=== PATIENT | male | born 1960 | race Caucasian/White ===

== ENCOUNTER 2016-11-18 09:12 | Outpatient (RCR) | payer MEDICAID ==
--- OUTSIDE RECORDS SUMMARY | 2016-11-04 08:30 | XMS REPORT | Continuity of Care Document ---
Author Author [facility] Organization [facility] Address Unknown Phone Unavailable Care Team Providers Care Drafter Geological Name Role Phone NATALIE MELVIN MD PCP Insurance Providers Payer Name Policy Number Subscriber Name Relationship [facility] [id number] Rigo Marcus 18 Self / Same As Patient Advance Directives Directive Response Recorded Date/Time Advance Directives Yes 09/17/16 5:41pm Health Care Power of Exhibit Display Representative No 09/17/16 5:41pm Organ Donor Yes 09/17/16 5:41pm Resuscitation Status Full Code 09/17/16 5:41pm Chief Complaint and Reason for Visit Chief Complaint PNEUMONIA ACUTE HEART FAILURE CHEST PAIN Reason for Visit Knee joint effusion Leukocytosis Orthopnea Problems Active Problems Medical Problem Onset Date Status Acute renal failure Unknown Acute Atrial fibrillation with RVR Unknown Acute Atrial fibrillation with rapid ventricular response Unknown Acute Bilateral pneumonia Unknown Acute CAD (coronary artery disease) Unknown Acute COPD (chronic obstructive pulmonary disease) Unknown Acute COPD exacerbation Unknown Acute Chest pain Unknown Acute Chronic atrial fibrillation Unknown Acute Dysphagia Unknown Acute Generalized weakness Unknown Acute Gouty arthropathy Unknown Acute HTN (hypertension) Unknown Acute Heart failure, acute systolic Unknown Acute Illicit drug use Unknown Acute Knee joint effusion Unknown Acute Leukocytosis Unknown Acute Orthopnea Unknown Acute Medications Current Home Medications Medication Dose Units Route Directions Days/Qty Instructions Start Date Dabigatran Etexilate Mesylate 150 Mg 150 Mg Oral Twice A Day Furosemide 40 Mg 40 Mg Oral Daily 04/29/16 Prednisone 20 Mg 20 Mg Oral Daily 07/21/16 Montelukast Sodium 10 Mg 10 Mg Oral Bedtime 07/21/16 Famotidine 20 Mg 20 Mg Oral Twice A Day 07/22/16 Potassium Chloride 20 Meq 20 Meq Oral Daily 07/22/16 Aspirin 81 Mg 81 Mg Oral Daily 07/22/16 Insulin Detemir 100 Unit/1 Ml 18 Units Subcutaneously Twice A Day Insulin Aspart 300 Units/3 Ml 6 Units Subcutaneously Before Meals Albuterol Sulfate 2.5 Mg/3 Ml 2.5 Mg Nebullizer Every 8HRS as needed for Shortness Of Breath 09/17/16 Hydrocodone/Acetaminophen 1 Each 1-2 Tab Oral Every 4HRS as needed for Pain 09/17/16 Docusate Sodium 100 Mg 100 Mg Oral Twice A Day 09/17/16 Ferrous Sulfate 325 Mg 325 Mg Oral Twice A Day 09/17/16 Metoprolol Tartrate 25 Mg 12.5 Mg Oral Twice A Day TAKES 1/2 (25MG) TABLET 09/17/16 Guaifenesin 600 Mg 1,200 Mg Oral Twice A Day TAKES 2 (600MG) TABLETS 09/17/16 Melatonin/Pyridoxine 1 Each 3 Mg Oral Bedtime as needed for Insomnia 09/17/16 Budesonide/Formoterol Fumarate 10.2 Gm 2 Puff Inhalation Every 12 Hours as needed for Shortness Of Breath 09/17/16 Tramadol Hcl 50 Mg 50-100 Mg Oral Every 8HRS as needed for Pain 01/01 Amiodarone Hcl 200 Mg 400 Mg Oral Daily TAKES 2 (200MG) TABLETS Pantoprazole Sodium 20 Mg 20 Mg Oral Daily 09/17/16 Tiotropium [place] 4 Gm 2 Puff Inhalation Daily 09/17/16 Past Home Medications Medication Directions Ordered Status [Prednisone] , 60 Mg Oral Daily 09/23/13 Discontinued Acetaminophen/Hydrocodone Bitart 1 Each Tablet, 1-2 Each Oral Every 6 Hours as needed for Pain 09/23/13 Discontinued Prednisone 10 Mg Tab, 10 Mg Oral As Directed 09/23/13 Discontinued Clonidine Hcl 0.2 Mg Tablet, 0.2 Mg Oral Twice A Day 12/25/15 Discontinued Hydrochlorothiazide 25 Mg Tablet, 25 Mg Oral Daily 12/25/15 Discontinued Furosemide 20 Mg Tablet, 20 Mg Oral Daily 12/25/15 Discontinued Metformin Hcl 500 Mg Tablet, 500 Mg Oral Twice A Day 12/25/15 Discontinued Amlodipine Besylate 10 Mg Tablet, 10 Mg Oral Daily 12/25/15 Discontinued Hydrocodone/Acetaminophen 1 Each Tablet, 1 Tab Oral Every 6 Hours as needed for Pain 12/25/15 Discontinued Metoprolol Succinate 25 Mg Tab.er.24h, 25 Mg Oral Daily 12/25/15 Discontinued Prednisone 20 Mg Tab, 20 Mg Oral Daily 12/25/15 Discontinued Rivaroxaban 20 Mg Tablet, 20 Mg Oral Daily@1700 12/26/15 Discontinued Metoprolol Succinate 50 Mg Tab.er.24h, 50 Mg Oral Daily 12/26/15 Discontinued Lisinopril 40 Mg Tablet, 40 Mg Oral Daily 12/26/15 Discontinued Furosemide 40 Mg Tablet, 40 Mg Oral Daily 12/26/15 Discontinued Potassium Chloride (K-Dur) 20 Meq Tablet.er, 20 Meq Oral Daily 12/26/15 Discontinued Rosuvastatin Calcium 5 Mg Tablet, 5 Mg Oral Daily 12/26/15 Discontinued Fenofibrate Nanocrystallized 145 Mg Tablet, 145 Mg Oral Daily 12/26/15 Discontinued Dabigatran Etexilate Mesylate 75 Mg Capsule, 75 Mg Oral 01/19/16 Discontinued Furosemide 40 Mg Tablet, 20 Mg Oral Daily 01/19/16 Discontinued Metoprolol Succinate 25 Mg Tab.er.24h, 25 Mg Oral Daily 01/19/16 Discontinued Amlodipine Besylate 10 Mg Tablet, 10 Mg Oral Daily 01/19/16 Discontinued Prednisone 20 Mg Tab, 20 Mg Oral Twice A Day 01/19/16 Discontinued Furosemide 20 Mg Tablet, 20 Mg Oral Daily 01/19/16 Discontinued Diltiazem Hcl 240 Mg Cap.er.24h, 240 Mg Oral Daily 01/20/16 Discontinued Furosemide 40 Mg Tablet, 40 Mg Oral Daily 01/20/16 Discontinued Potassium Chloride 20 Meq Tab.er.prt, 20 Meq Oral Daily@0700 01/20/16 Discontinued Famotidine Tablet, 20 Mg Oral Twice A Day 04/29/16 Discontinued Potassium Chloride 20 Meq Tablet.er, 20 Meq Oral Daily 04/29/16 Discontinued Metoprolol Succinate 50 Mg Tab.er.24h, 50 Mg Oral Daily 04/29/16 Discontinued Lisinopril 40 Mg Tablet, 40 Mg Oral Daily 04/29/16 Discontinued Diltiazem Hcl 240 Mg Capsule.er, 240 Mg Oral Daily 04/29/16 Discontinued Prednisone 20 Mg Tab, 60 Mg Oral Daily 04/29/16 Discontinued Aspirin 81 Mg Tablet.dr, 81 Mg Oral Daily 04/30/16 Discontinued Metolazone 5 Mg Tablet, 1 Tab Oral Daily 07/21/16 Discontinued Fluticasone/Vilanterol 1 Each Blst.w.dev, 1 Each Inhalation Daily 07/21/16 Discontinued Diltiazem Hcl 240 Mg Capsule.er, 240 Mg Oral Daily 07/22/16 Discontinued Fluticasone/Vilanterol 1 Each Blst.w.dev, 1 Puff Inhalation Daily 07/22/16 Discontinued Umeclidinium [place] 62.5 Mcg Blst.w.dev, 62.5 Mcg Inhalation Daily 07/22/16 Discontinued Albuterol Sulfate 8.5 Gm Hfa.aer.ad, 2 Puff Inhalation Every 4HRS as needed for Shortness Of Breath 07/22/16 Discontinued Metoprolol Succinate 50 Mg Tab.er.24h, 50 Mg Oral Twice A Day 07/23/16 Discontinued Insulin Aspart 100 Unit/1 Ml Susp, 10 Unit Subcutaneously Before Meals Discontinued Insulin Determir 1,000 Units/10 Ml Soln, 35 Unit Sub-Q Bedtime 07/23/16 Discontinued Social History Social History Problem Response Recorded Date/Time Alcohol Use Past History 01/18/2016 10:09pm Recreational Drug Use N hx of meth use - last used 12/201501/19/2016 7:34am Recent Foreign Travel No 09/17/2016 5:43pm Recent Infectious Disease Exposure No 09/17/2016 5:43pm Hospitalization with Isolation Denies 09/18/2016 12:29pm Sexually Transmitted Disease No 09/17/2016 12:56pm HIV/AIDS No 09/17/2016 12:56pm Smoking Status Current Everyday Smoker 09/17/2016 12:57pm Do you dip or chew tobacco? Y "once in a while" 01/18/2016 10:09pm Type Used Cigarettes 09/18/2016 12:29pm Recent Hopitalizations No 09/17/2016 12:56pm Sexually Transmitted Disease No 09/17/2016 12:56pm Hospitalization with Isolation Denies 09/18/2016 12:29pm Query Response Start Date Stop Date Smoking Status Current Everyday Smoker Hospital Discharge Instructions No hospital discharge instructions. Plan of Care Discharge Date 09/18/16 11:23am Disposition 02 XFER SHT-TRM HOSP Prescriptions See Medication Section Functional Status Query Response Date Recorded Patient Orientation Person Place Time Situation September 18, 2016 12:29pm Comprehension Ability Understands Concepts September 18, 2016 8:00am Allergies, Adverse Reactions, Alerts No known allergies. Immunizations Name Given Type FLU TRIvalent 5 years - Adult 09/17/16 Administered Vital Signs Acute Vital Signs Vital Response Date/Time Temperature (Fahrenheit) 96.2 degrees F (97.6 - 99.5) 09/18/2016 8:30am Temperature (Calculated Celsius) 35.41904 degrees C (36.4 - 37.5) 09/18/2016 8:30am Temperature Source Tympanic 09/18/2016 8:30am Pulse Rate (adult) 139 bpm (60 - 90) 09/18/2016 9:45am Respiratory Rate 24 bpm (12 - 24) 09/18/2016 9:45am O2 Sat by Pulse Oximetry 88 % (88 - 100) 09/18/2016 9:45am Blood Pressure 127/88 mm Hg 09/18/2016 10:00am Blood Pressure Mean 101 mm Hg 09/18/2016 10:00am Pain Numeric Pain Scale 4 09/18/2016 8:00am Height (Feet) 5 feet 09/17/2016 5:49pm Height (Inches) 10.00 inches 09/17/2016 5:49pm Height (Calculated Centimeters) 177.057379 cm 09/17/2016 5:49pm Weight (Pounds) 250 pounds 09/18/2016 6:00am Weight (Ounces) 0.0 oz 09/17/2016 5:49pm Weight (Calculated Grams) 218532.094 gm 09/18/2016 6:00am Weight (Calculated Kilograms) 113.631798 kilograms 09/18/2016 6:00am Calculated BMI 34.7 09/17/2016 5:49pm Capillary Refill Capillary Refill Less Than 3 Seconds 09/17/2016 9:03am Results Laboratory Results Test Name Result Units Flags Reference Collection Date/Time Result Date/ Time Comments White Blood Count 6.8 10^3/uL 4.3-11.0 09/18/2016 5:37am 09/18/2016 5: 45am Red Blood Count 3.14 10^6/uL L 4.35-5.85 09/18/2016 5:37am 09/18/2016 5: 45am Hemoglobin 9.4 G/DL L 13.3-17.7 09/18/2016 5:37am 09/18/2016 5:45am Hematocrit 30 % L 40-54 09/18/2016 5:37am 09/18/2016 5:45am Mean Corpuscular Volume 95 FL 80-99 09/18/2016 5:37am 09/18/2016 5: 45am Mean Corpuscular Hemoglobin 30 PG 25-34 09/18/2016 5:37am 09/18/2016 5: 45am Mean Corpuscular Hemoglobin Concent 32 G/DL 32-36 09/18/2016 5:37am 01/2016 5:45am Red Cell Distribution Width 16.9 % H 10.0-14.5 09/18/2016 5:37am 2015 5:45am Platelet Count 278 10^3/uL 130-400 09/18/2016 5:37am 09/18/2016 5:45am Mean Platelet Volume 8.6 FL 7.4-10.4 09/18/2016 5:37am 09/18/2016 5: 45am Neutrophils (%) (Auto) 79 % H 42-75 09/18/2016 5:37am 09/18/2016 5:45am Lymphocytes (%) (Auto) 11 % L 12-44 09/18/2016 5:37am 09/18/2016 5:45am Monocytes (%) (Auto) 9 % 0-12 09/18/2016 5:37am 09/18/2016 5:45am Eosinophils (%) (Auto) 2 % 0-10 09/18/2016 5:37am 09/18/2016 5:45am Basophils (%) (Auto) 0 % 0-10 09/18/2016 5:37am 09/18/2016 5:45am Neutrophils # (Auto) 5.4 X 10^3 1.8-7.8 09/18/2016 5:37am 09/18/2016 5: 45am Lymphocytes # (Auto) 0.8 X 10^3 L 1.0-4.0 09/18/2016 5:37am 09/18/2016 5: 45am Monocytes # (Auto) 0.6 X 10^3 0.0-1.0 09/18/2016 5:37am 09/18/2016 5: 45am Eosinophils # (Auto) 0.1 10^3/uL 0.0-0.3 09/18/2016 5:37am 09/18/2016 5 :45am Basophils # (Auto) 0.0 10^3/uL 0.0-0.1 09/18/2016 5:37am 09/18/2016 5: 45am Prothrombin Time 18.9 SEC H 12.2-14.7 09/17/2016 9:27am 09/17/2016 9: 55am INR Comment 1.6 H 0.8-1.4 09/17/2016 9:27am 09/17/2016 9:55am INTERPRETIVE DATA SUGGESTED THERAPEUTIC RANGE FOR INR'S: VENOUS THROMBOSIS, PULMONARY EMBOLISM, OR PREVENTION OF SYSTEMIC EMBOLISM (EG. IN ATRIAL FIBRILLATION): 2.0 - 3.0 MECHANICAL PROSTHETIC HEART VALVES: 2.5 - 3.5* *NOTE: INR'S UP TO 4.5 MAY BE NECESSARY IN SELECTED GROUPS OF HIGH RISK PATIENTS. [employer] [place] [employer] OF CHEST PHYSICIANS CONSENSUS CONFERENCE ON ANTITHROMBOTIC THERAPY (2000). Activated Partial Thromboplast Time 62 SEC H 24-35 09/17/2016 9:27am 12/2015 9:55am Sodium Level 134 MMOL/L L 135-145 09/18/2016 5:37am 09/18/2016 6:05am Potassium Level 3.6 MMOL/L 3.6-5.0 09/18/2016 5:37am 09/18/2016 6:05am Chloride Level 101 MMOL/L 98-107 09/18/2016 5:37am 09/18/2016 6:05am Carbon Dioxide Level 21 MMOL/L 21-32 09/18/2016 5:37am 09/18/2016 6: 05am Anion Gap 12 MMOL/L 5-14 09/18/2016 5:37am 09/18/2016 6:05am Blood Urea Nitrogen 26 MG/DL H 7-18 09/18/2016 5:37am 09/18/2016 6:05am Creatinine 1.34 MG/DL H 0.60-1.30 09/18/2016 5:37am 09/18/2016 6:05am BUN/Creatinine Ratio 19 09/18/2016 5:37am 09/18/2016 6:05am Estimat Glomerular Filtration Rate 55 09/18/2016 5:37am 09/18/2016 6:05am GFR INTERPRETIVE DATA UNITS FOR ESTIMATED GFR (eGFR): mL/min/1.73 M2 REFERENCE RANGE FOR ESTIMATED GFR (eGFR) eGFR NORMAL eGFR >60 MODERATELY DECREASED eGFR 30-59 SEVERLY DECREASED eGFR 15-29 KIDNEY FAILURE <15 (OR DIALYSIS) Glucose Level 99 MG/DL 70-105 09/18/2016 5:37am 09/18/2016 6:05am Glucometer 195 MG/DL H 70-110 09/18/2016 10:18am 09/18/2016 12:12pm Calcium Level 8.1 MG/DL L 8.5-10.1 09/18/2016 5:37am 09/18/2016 6:05am Magnesium Level 1.9 MG/DL 1.8-2.4 09/18/2016 5:37am 09/18/2016 6:05am Total Bilirubin 0.7 MG/DL 0.1-1.0 09/18/2016 5:37am 09/18/2016 6:05am Alkaline Phosphatase 78 U/L 40-136 09/18/2016 5:37am 09/18/2016 6:05am Aspartate Amino Transf (AST/SGOT) 15 U/L 5-34 09/18/2016 5:37am 2015 6:05am Alanine Aminotransferase (ALT/SGPT) 27 U/L 0-55 09/18/2016 5:37am 09/18 6:05am Troponin I < 0.30 NG/ML <0.30 09/17/2016 3:53pm 09/17/2016 4:28pm Troponin I < 0.30 NG/ML <0.30 09/17/2016 8:12pm 09/17/2016 9:02pm Myoglobin 57.8 NG/ML 10.0-92.0 09/18/2016 5:37am 09/18/2016 6:22am B-Type Natriuretic Peptide 430.1 PG/ML H <100.0 09/17/2016 9:27am 2015 10:07am Total Protein 4.7 G/DL L 6.4-8.2 09/18/2016 5:37am 09/18/2016 6:05am Albumin 2.7 G/DL L 3.2-4.5 09/18/2016 5:37am 09/18/2016 6:05am Triglycerides Level 125 MG/DL <150 09/18/2016 5:37am 09/18/2016 6:05am Cholesterol Level 60 MG/DL < 200 09/18/2016 5:37am 09/18/2016 6:05am HDL Cholesterol 16 MG/DL L 40-60 09/18/2016 5:37am 09/18/2016 6:05am LDL Cholesterol Direct 23 MG/DL 1-129 09/18/2016 5:37am 09/18/2016 6: 05am VLDL Cholesterol 25 MG/DL 5-40 09/18/2016 5:37am 09/18/2016 6:05am Lactic Acid Level 2.5 MMOL/L CH 0.5-2.0 09/18/2016 9:15am 09/18/2016 9: 49am RESULTS CALLED TO MAGALY AT 0948. RESULTS READ BACK: YES. Thyroid Stimulating Hormone (TSH) 5.04 UIU/ML H 0.35-4.94 09/18/2016 5: 37am 09/18/2016 6:22am Arterial Blood pH 7.43 7.37-7.43 09/17/2016 3:46pm 09/17/2016 3:57pm Arterial Blood Partial Pressure CO2 36 MMHG 35-45 09/17/2016 3:46pm 12/2015 3:57pm Arterial Blood Partial Pressure O2 63 MMHG L 79-93 09/17/2016 3:46pm 12/2015 3:57pm Arterial Blood HCO3 23 MMOL/L 23-27 09/17/2016 3:46pm 09/17/2016 3: 57pm Arterial Blood Total CO2 24.3 MMOL/L 21.0-31.0 09/17/2016 3:46pm 2015 3:57pm Arterial Blood Base Excess -0.7 MMOL/L -2.5-2.5 09/17/2016 3:46pm 09/17 3:57pm Arterial Blood Oxygen Saturation 93 % L 94-100 09/17/2016 3:46pm 2015 3:57pm Blood Gas Puncture Site LT RAD 09/17/2016 3:46pm 09/17/2016 3:57pm Gil Test YES-POS 09/17/2016 3:46pm 09/17/2016 3:57pm Blood Gas Inspired Oxygen 7L 09/17/2016 3:46pm 09/17/2016 3:57pm Blood Gas Ventilator Setting NO 09/17/2016 3:46pm 09/17/2016 3: 57pm Blood Gas Patient Temperature 99.2 09/17/2016 3:46pm 09/17/2016 3: 57pm Procedures Procedure Status Date Provider(s) Tracing only of electrocardiogram Completed 09/17/16 IAN OVIEDO MD Tracing only of electrocardiogram Completed 09/17/16 JULIUS ALCARAZ MD FACP [facility] Color Doppler echocardiography Active 09/18/16 MARISA POPE Encounters Encounter Location Arrival/Admit Date Discharge/Depart Date Attending Provider Discharged Inpatient [facility] 09/17/16 11:41am 11:23am ERNESTINE MOORE MD Recent Diagnosis Knee joint effusion Leukocytosis Orthopnea
[~2016-11-18 09:12] MED LIST: ACHD5005 PO; ALBU2.5V4 NEB; AMIO200T2 PO; AMLO10TA2 PO; ASPI-586 PO; ASPI-983 PO; BUDE10.2 INH; CLON0.2T PO; DABI150C5 PO; DABI75CA3 PO; DILT240C56 PO; DILT240C87 PO; DILT240C90 PO; DOCU-143 PO; FAMO20TA3 PO; FAMO20TA5 PO; FENO145T2 PO; FERR-74 PO; FLUT1AER IH; FURO20TA4 PO; FURO40TA4 PO; GUAI600T43 PO; HYDR-3816 PO; HYDR-3820 PO; HYDR25TA4 PO; INSU100I14 SC; INSU100I29 SC; INSU100V16 SC; INSU100V5 SQ; LISI40TA PO; MELA1TAB10 PO; METF500T4 PO; METO-272 PO; METO-333 PO; METO-351 PO; METO5TAB6 PO; MONT10TA24 PO; PANT20TA3 PO; POTA-51 PO; POTA-53 PO; POTA20TA15 PO; POTA20TA8 PO; PRD10T PO; PRD20T PO; PREDNISONE PO; RIVA20TA PO; ROSU5TAB PO; RT-ALBUINH IH; TIOT4MIS2 INH; TRAM50TA2 PO; UMEC62.5 IH
== END 2016-11-18 16:00 | disposition home or self-care (01) ==
LOC: WOUNDCARE 09:12
PROVIDERS: ATTEND Surgery
DX: L97.222 Non-pressure chronic ulcer of left calf with fat layer exposed (principal); I70.242 Atherosclerosis of native arteries of left leg with ulceration of calf; E11.622 Type 2 diabetes mellitus with other skin ulcer; I89.0 Lymphedema, not elsewhere classified; L03.116 Cellulitis of left lower limb
CPT/HCPCS: 99212; 99213

== ENCOUNTER 2016-12-24 15:48 | Inpatient (IN) | payer MEDICAID ==
[~2016-12-24] VITALS: Ht 177.8 cm; Wt 110.7 kg
[2016-12-24 16:56] VITALS: BP 172/102
[2016-12-24] MEDS ORDERED: FUROSEMIDE 40 MG/4 ML INJ (LASIX) IVP SCH (17:00)
--- OUTSIDE RECORDS SUMMARY | 2016-12-24 17:00 | XMS REPORT | Continuity of Care Document ---
Author Author [facility] Organization [facility] Address Unknown Phone Unavailable Care Team Providers Care College Physics Instructor Name Role Phone NATALIE MELVIN MD PCP Insurance Providers Payer Name Policy Number Subscriber Name Relationship [facility] [id number] Rigo Marcus 18 Self / Same As Patient Advance Directives Directive Response Recorded Date/Time Advance Directives Yes 09/17/16 5:41pm Health Care Power of Motion Picture Director No 09/17/16 5:41pm Organ Donor Yes 09/17/16 [...] Mg 20 Mg Oral Daily 09/17/16 Tiotropium [place] 4 Gm 2 Puff Inhalation Daily 09/17/16 [...] 1 Puff Inhalation Daily 07/22/16 Discontinued Umeclidinium [place] 62.5 Mcg Blst.w.dev, 62.5 Mcg Inhalation Daily [...] - 99.5) 09/18/2016 8:30am Temperature (Calculated Celsius) 35.21799 degrees C (36.4 - 37.5) 09/18/2016 8:30am [...] 10.00 inches 09/17/2016 5:49pm Height (Calculated Centimeters) 177.969627 cm 09/17/2016 5:49pm Weight (Pounds) 250 pounds 09/18/2016 6:00am Weight (Ounces) 0.0 oz 09/17/2016 5:49pm Weight (Calculated Grams) 584849.094 gm 09/18/2016 6:00am Weight (Calculated Kilograms) 113.054984 kilograms 09/18/2016 6:00am Calculated BMI 34.7 09/17/2016 [...] SELECTED GROUPS OF HIGH RISK PATIENTS. [employer] [place] [employer] CONSENSUS CONFERENCE ON [...] electrocardiogram Completed 09/17/16 JULIUS ALCARAZ MD FACP [facility] Color Doppler echocardiography Active 09/18/16 MARISA POPE Encounters Encounter Location Arrival/Admit Date Discharge/Depart Date Attending Provider Discharged Inpatient [facility] 09/17/16 11:41am 11:23am ERNESTINE MOORE MD Recent Diagnosis Knee joint effusion Leukocytosis Orthopnea
[2016-12-24 17:14] LABS: BASOPHILS # (AUTO) 0.1 10^3/uL (0.0-0.1); BASOPHILS % (AUTO) 0 % (0-10); EOSINOPHILS % (AUTO) 0 % (0-10); LYMPHOCYTES # (AUTO) 0.4 X 10^3 (1.0-4.0); LYMPHOCYTES % (AUTO) 4 % (12-44); MEAN CORPUSCULAR HEMOGLOBIN 28 PG (25-34); MEAN CORPUSCULAR HGB CONC 32 G/DL (32-36); MEAN CORPUSCULAR VOLUME 88 FL (80-99); MEAN PLATELET VOLUME 9.3 FL (7.4-10.4); MONOCYTES # (AUTO) 0.8 X 10^3 (0.0-1.0); MONOCYTES % (AUTO) 7 % (0-12); NEUTROPHILS # (AUTO) 10.7 X 10^3 (1.8-7.8); NEUTROPHILS % (AUTO) 89 % (42-75); PLATELET COUNT 210 10^3/uL (130-400); RED BLOOD COUNT 4.56 10^6/uL (4.35-5.85); RED CELL DISTRIBUTION WIDTH 16.5 % (10.0-14.5)
[2016-12-24 17:36] LABS: ALANINE AMINOTRANSFERASE 32 U/L (0-55); ALBUMIN 3.9 G/DL (3.2-4.5); ANION GAP 14 MMOL/L (5-14); ASPARTATE AMINO TRANSFERASE 19 U/L (5-34); BILIRUBIN,TOTAL 0.5 MG/DL (0.1-1.0); BLOOD UREA NITROGEN 33 MG/DL (7-18); BUN/CREATININE RATIO 25; CARBON DIOXIDE 28 MMOL/L (21-32); CHLORIDE 98 MMOL/L (98-107); CREATININE SERUM 1.34 MG/DL (0.60-1.30); GFR ESTIMATED 55; GLUCOSE 299 MG/DL (70-105); POTASSIUM 4.7 MMOL/L (3.6-5.0); SODIUM 140 MMOL/L (135-145)
--- NOTE | 2016-12-24 17:43 | Consultation-Cardiology ---
HPI-Cardiology Cardiology Consultation: Date of Consultation 12/24/16 Date of Admission 12/24/16 Attending Physician Annalise Pérez DO Admitting Physician Macho Watson MD Consulting Physician JULIUS ALCARAZ MD, FACP, FACC, [facility], [facility] HPI: Chief Complaint: Reason for consultation: Shortness of breath 56 yo man with increasing shortness of breath and a productive cough and gen malaise for 5-6 days. Has chronic leg swelling, unchanged. No specific chest pain. Denies fever or chills Review of Systems-Cardiology Review of Systems Constitutional: malaise tiredness Eyes: No vision change Ears/Nose/Throat: No ear discharge, No nasal drainage, No recent hearing loss Respiratory: As described under HPI Cardiovascular: As described under HPI Gastrointestinal: No diarrhea, No nausea, No vomiting Genitourinary: No dysuria, No hematuria Musculoskeletal: back pain (chronic) Skin: No ulcerations Psychiatric/Neurological: No focal weakness, No seizure, No syncope Hematologic: No bleeding abnormalities [id number]-Wwhesr Hx Patient Social History Type Used: Cigarettes Recent Foreign Travel: No Immunizations Up To Date Tetanus Booster (TDap): Unknown Past Medical History PMH As described under Assessment. Family Medical History Family Medical History: He reports no family h/o CAD. He reports his father had lung cancer. Family History: Alzheimer's disease 19 MOTHER Diabetes mellitus 19 MOTHER FH: lung cancer 19 FATHER Hypertension 19 FATHER 19 MOTHER Allergies and Home Medications Allergies Coded Allergies: No Known Drug Allergies (Unverified , 09/23/13) Home Medications Albuterol Sulfate 2.5 Mg/3 Ml Vial.neb 2.5 MG NEB Q8H PRN PRN SHORTNESS OF BREATH (Reported) Amiodarone HCl 200 Mg Tablet 400 MG PO DAILY (Reported) TAKES 2 (200MG) TABLETS Aspirin 81 Mg Tablet.dr 81 MG PO DAILY (Reported) Budesonide/Formoterol Fumarate 10.2 Gm Hfa.aer.ad 2 PUFF INH Q12H PRN PRN SHORTNESS OF BREATH (Reported) Dabigatran Etexilate Mesylate 150 Mg Capsule 150 MG PO BID (Reported) Docusate Sodium 100 Mg Capsule 100 MG PO BID (Reported) Famotidine 20 Mg Tablet 20 MG PO BID (Reported) Ferrous Sulfate 325 Mg Tablet 325 MG PO BID (Reported) Furosemide 40 Mg Tablet 40 MG PO DAILY (Reported) Guaifenesin 600 Mg Tab.er.12h 1,200 MG PO BID (Reported) TAKES 2 (600MG) TABLETS Hydrocodone/Acetaminophen 1 Each Tablet 1-2 TAB PO Q4H PRN PRN PAIN (Reported) Insulin Aspart 300 Units/3 Ml Solution 6 UNITS SC AC (Reported) Insulin Detemir 100 Unit/1 Ml Insuln.pen 18 UNITS SC BID (Reported) Melatonin/Pyridoxine 1 Each Tablet 3 MG PO HS PRN PRN INSOMNIA (Reported) Metoprolol Tartrate 25 Mg Tablet 12.5 MG PO BID (Reported) TAKES 1/2 (25MG) TABLET Montelukast Sodium 10 Mg Tablet 10 MG PO HS (Reported) Pantoprazole Sodium 20 Mg Tablet.dr 20 MG PO DAILY (Reported) Potassium Chloride 20 Meq Tab.er.prt 20 MEQ PO DAILY (Reported) Prednisone 20 Mg Tab 20 MG PO DAILY (Reported) Tiotropium [place] 4 Gm Mist.inhal 2 PUFF INH DAILY (Reported) Tramadol HCl 50 Mg Tablet 50-100 MG PO Q8H PRN PRN PAIN (Reported) Physical Exam-Cardiology Physical Exam Vital Signs/I&O Capillary Refill : Constitutional: AAO x 3 well-developed well-nourished HEENT: PERRL EOMINo xanthelasmas are seen Neck: No carotid bruit, No carotid pulses are 2 + bilaterally, No with good upstrokes Respiratory: No accessory muscle use, other (fair air entry; increased exp phase; exp rhonchi and wheezes) Cardiovascular: regular rate-rhythm S1 and S2 systolic murmur (faint TINY at cardiac base) Gastrointestinal: No tender, softNo guarding, No rebound, audible bowel sounds Extremities: No clubbing, No cyanosis, significant edema Neurologic/Psychiatric: oriented x 3 grossly intact power is 5/5 both on sides Skin: No rash on exposed areas, No ulcerations on exposed areas Data Review Labs Laboratory Tests 12/24/16 17:07: Basophils # (Auto) 0.1, Basophils (%) (Auto) 0, Eosinophils # (Auto) 0.0, Eosinophils (%) (Auto) 0, Hematocrit 40, Hemoglobin 12.7L, Lymphocytes # (Auto) 0.4L, Lymphocytes (%) (Auto) 4L, Mean Corpuscular Hemoglobin 28, Mean Corpuscular Hemoglobin Concent 32, Mean Corpuscular Volume 88, Mean Platelet Volume 9.3, Monocytes # (Auto) 0.8, Monocytes (%) (Auto) 7, Neutrophils # (Auto ) 10.7H, Neutrophils (%) (Auto) 89H, Platelet Count 210, Red Blood Count 4.56, Red Cell Distribution Width 16.5H, White Blood Count 12.0H Laboratory Tests 12/24/16 17:07 A/P-Cardiology Assessment/Admission Diagnosis Acute exac of COPD due to lower resp tract infection CABG 3 vessel, GUZMAN to LAD, reverse saphenous vein graft to RPDA, reverse saphenous vein graft to OM1. Kaylen-atrial Farley MAZE by Dr. Raman on 08-26-16 CAD and cardiomyopathy. MPI of 01/22/16 showed ischemic cm; apical infarction with only minimal periinfarct ischemia; LVEF 31%. Subsequent cardiac cath of April 29, 2016 showed modately severe MVD, including the left main; LVEF 50%; elevated LVEDP; no significant MR. Chronic systolic and diastolic CHF Intermittent noncompliance with meds Paroxysmal A-fib/flutter Pradaxa for stroke prophylaxis HTN Echocardiogram from July [facility] at [facility] by Dr. Farley showed CM with an LVEF of 30% and diastolic dysfunction. Echocardiogram of 10-23-16 technically difficult study. LVEF 55-60%. Mild MR and TR. No evidence of significant valvular stenosis. PASP estimated to be approx 50mmHg. Mild diastolic dysfunction of LV DM Myasthenia gravis - chronic steroid therapy H/o chronic left eye droop/closure following cataract surgery in July 2015 COPD Tobaccoism - / PPD - cessation advised Methamphetamine abuse - cessation advised Atherosclerotic plaque within the bilateral internal carotid arteries contributing to less than 50% stenosis per carotid u/s of 12-25-15 Susptected KILLIAN Chornic mild transaminase elevation, present even before statin therapy Discussion and Recomendations * Continue diuretics * Repeat echo * Management of COPD and resp tract infection and other med problems is with Dr Pérez * I spoke with him and answered JULIUS Trevizo MD FACP [facility] Dec 24, 2016 17:43
[2016-12-24 17:45] LABS: BAND NEUTROPHILS 2 %; BASOPHILS % (MANUAL) 0 %; EOSINOPHILS % (MANUAL) 0 %; LYMPHOCYTES % (MANUAL) 10 %; NEUTROPHILS % (MANUAL) 87 %
[2016-12-24 17:54] VITALS: BP 153/100
[2016-12-24 17:56] LABS: THYROID STIMULATING HORMONE 1.65 UIU/ML (0.35-4.94); TROPONIN I < 0.30 NG/ML (<0.30)
[2016-12-24 18:00] VITALS: BP 148/91
--- NOTE | 2016-12-24 18:12 | Diagnostic Imaging Report ---
INDICATION: Shortness of air, decreased O2 sats. COMPARISON STUDY: Chest from September 18. FINDINGS: Patient has been extubated. Coronary artery bypass graft changes and cardiomegaly are stable. Vascularity is normal. Infiltrates in the right upper lobe have cleared. There are still infiltrates in the right lower lobe. IMPRESSION: Stable cardiomegaly with persistent infiltrates in the right lower lobe. Infiltrates in the right upper lobe have cleared. Dictated by: Dictated on workstation # [id number]
[2016-12-24] MEDS: RT-BUDESONIDE NEBS 0.5 MG/2ML (PULMICORT) AMP INH SCH (19:05)
[2016-12-24] MEDS: RT-ALBUTEROL/IPRATROPIUM 3 ML (DUONEB) VIAL INH SCH ×2 (19:05→22:13)
[2016-12-24] MEDS ORDERED: FUROSEMIDE 40 MG/4 ML INJ (LASIX) IVP NR (19:06)
[2016-12-24] MEDS ORDERED: ASPIRIN 81 MG CHEW (CHILDREN'S ASA) PO NR (19:06)
[2016-12-24] MEDS ORDERED: meTOprolol SUCCINATE 100 MG (TOPROL XL) TAB PO NR (19:07)
[2016-12-24] MEDS ORDERED: KCL 20 MEQ TAB (K-DUR) PO NR (19:07)
[2016-12-24 20:00] VITALS: BP 170/101
[2016-12-24] MEDS: methylPREDNISolone 40 MG/ML (Solu-MEDROL) VIAL IV SCH (20:08)
[2016-12-24] MEDS: oxyCODONE/APAP 5/325MG (PERCOCET 5) TABLET PO PRN (20:41)
[2016-12-24 21:00] VITALS: BP 154/94
[2016-12-24 21:47] LABS: BILIRUBIN,URINE NEGATIVE (NEGATIVE); KETONES,URINE NEGATIVE (NEGATIVE); LEUKOCYTE ESTERASE ,URINE NEGATIVE (NEGATIVE); NITRITE,URINE NEGATIVE (NEGATIVE); PH,URINE 6 (5-9); PROTEIN,URINE NEGATIVE (NEGATIVE); UROBILINOGEN,URINE NORMAL (NORMAL)
[2016-12-24 22:03] LABS: WBC,URINE RARE /HPF
[2016-12-24] MEDS: inSUlin (REGULAR) HUMAN 1 UNIT/0.01 ML (CHARGE PER UNIT) SC SCH (22:42)
[2016-12-25] VITALS (8 sets, daily range): BP systolic 149–170; BP diastolic 88–108
[2016-12-25] MEDS: methylPREDNISolone 40 MG/ML (Solu-MEDROL) VIAL IV SCH ×5 (00:16→23:35)
[2016-12-25] MEDS: RT-ALBUTEROL/IPRATROPIUM 3 ML (DUONEB) VIAL INH SCH ×6 (02:21→22:37)
[2016-12-25 04:54] LABS: BASOPHILS % (AUTO) 0 % (0-10); EOSINOPHILS % (AUTO) 0 % (0-10); LYMPHOCYTES # (AUTO) 0.2 X 10^3 (1.0-4.0); LYMPHOCYTES % (AUTO) 2 % (12-44); MEAN CORPUSCULAR HEMOGLOBIN 28 PG (25-34); MEAN CORPUSCULAR HGB CONC 32 G/DL (32-36); MEAN CORPUSCULAR VOLUME 88 FL (80-99); MEAN PLATELET VOLUME 9.9 FL (7.4-10.4); MONOCYTES # (AUTO) 0.3 X 10^3 (0.0-1.0); MONOCYTES % (AUTO) 4 % (0-12); NEUTROPHILS # (AUTO) 8.2 X 10^3 (1.8-7.8); NEUTROPHILS % (AUTO) 94 % (42-75); PLATELET COUNT 208 10^3/uL (130-400); RED BLOOD COUNT 4.47 10^6/uL (4.35-5.85); RED CELL DISTRIBUTION WIDTH 16.4 % (10.0-14.5); WHITE BLOOD COUNT 8.8 10^3/uL (4.3-11.0)
[2016-12-25] MEDS: NYSTATIN ORAL SUSP 5 ML UDC PO SCH ×4 (05:07→21:00)
[2016-12-25 05:30] LABS: ALBUMIN 3.9 G/DL (3.2-4.5); BILIRUBIN,TOTAL 0.4 MG/DL (0.1-1.0); CREATININE SERUM 1.27 MG/DL (0.60-1.30); TOTAL PROTEIN 5.9 G/DL (6.4-8.2)
[2016-12-25 05:40] LABS: MAGNESIUM 2.1 MG/DL (1.8-2.4); PHOSPHORUS 4.8 MG/DL (2.3-4.7)
--- NOTE | 2016-12-25 06:24 | Pulmonary Consultation ---
History of Present Illness History of Present Illness Date of Consultation 12/25/16 06:18 Date of Admission History of Present Illness 56 yo with hx of severe COPD, CAD, presented secondary to worsening SOB and productive cough. He also complains of generalized fatigue. He has chronic LE edema. PT states he is feeling improved currently since admission. Allergies and Home Medications Allergies Coded Allergies: No Known Drug Allergies (Unverified , 09/23/13) Home Medications Albuterol Sulfate 2.5 Mg/3 Ml Vial.neb 2.5 MG NEB Q8H PRN PRN SHORTNESS OF BREATH (Reported) Amiodarone HCl 200 Mg Tablet 400 MG PO DAILY (Reported) TAKES 2 (200MG) TABLETS Aspirin 81 Mg Tablet.dr 81 MG PO DAILY (Reported) Budesonide/Formoterol Fumarate 10.2 Gm Hfa.aer.ad 2 PUFF INH Q12H PRN PRN SHORTNESS OF BREATH (Reported) Dabigatran Etexilate Mesylate 150 Mg Capsule 150 MG PO BID (Reported) Docusate Sodium 100 Mg Capsule 100 MG PO BID (Reported) Famotidine 20 Mg Tablet 20 MG PO BID (Reported) Ferrous Sulfate 325 Mg Tablet 325 MG PO BID (Reported) Furosemide 40 Mg Tablet 40 MG PO DAILY (Reported) Guaifenesin 600 Mg Tab.er.12h 1,200 MG PO BID (Reported) TAKES 2 (600MG) TABLETS Hydrocodone/Acetaminophen 1 Each Tablet 1-2 TAB PO Q4H PRN PRN PAIN (Reported) Insulin Aspart 300 Units/3 Ml Solution 6 UNITS SC AC (Reported) Insulin Detemir 100 Unit/1 Ml Insuln.pen 18 UNITS SC BID (Reported) Melatonin/Pyridoxine 1 Each Tablet 3 MG PO HS PRN PRN INSOMNIA (Reported) Metoprolol Tartrate 25 Mg Tablet 12.5 MG PO BID (Reported) TAKES 1/2 (25MG) TABLET Montelukast Sodium 10 Mg Tablet 10 MG PO HS (Reported) Pantoprazole Sodium 20 Mg Tablet.dr 20 MG PO DAILY (Reported) Potassium Chloride 20 Meq Tab.er.prt 20 MEQ PO DAILY (Reported) Prednisone 20 Mg Tab 20 MG PO DAILY (Reported) Tiotropium [place] 4 Gm Mist.inhal 2 PUFF INH DAILY (Reported) Tramadol HCl 50 Mg Tablet 50-100 MG PO Q8H PRN PRN PAIN (Reported) Past Ondrrbi-Fxcrim-Nfnrvy Hx Patient Social History Alcohol Use: Denies Use Recreational Drug Use: Yes Smoking Status: Current Everyday Smoker Type Used: Cigarettes Recent Foreign Travel: No Contact w/Someone Who Travel: No Recent Infectious Disease Expo: No Recent Hopitalizations: Yes Physical Abuse Screen: No Sexual Abuse: No Immunizations Up To Date Tetanus Booster (TDap): Unknown Date of Influenza Vaccine: Dec 24, 2016 Seasonal Allergies Seasonal Allergies: No Surgeries HX Surgeries: Yes (CATARACT, heart cath) Surgeries: Eye Surgery Respiratory Hx Respiratory Disorders: Yes (tobaccoism) Respiratory Disorders: COPD Cardiovascular Hx Cardiac Disorders: Yes (history of congestive heart failure) Cardiac Disorders: Atrial Fibrillation, High Cholesterol, Hypertension Neurological Hx Neurological Disorders: Yes (MYASTHENIS GRAVIS) Reproductive System Hx Reproductive Disorders: No Sexually Transmitted Disease: No HIV/AIDS: No Genitourinary Hx Genitourinary Disorders: No Gastrointestinal Hx Gastrointestinal Disorders: No Musculoskeletal Hx Musculoskeletal Disorders: Yes (CHRONIC NECK PAIN) Musculoskeletal Disorders: Chronic Back Pain, Gout Endocrine Hx Endocrine Disorders: Yes Endocrine Disorders: Diabetes, Non-Insulin dep HEENT HX ENT Disorders: Yes (CATARACT SURGERY) Loss of Vision: Denies Hearing Impairment: Denies Cancer Hx Cancer: No Psychosocial Hx Psychiatric Problems: No Integumentary HX Skin/Integumentary Disorder: No Blood Transfusions Hx Blood Disorders: No Family Medical History Family Medial History: Alzheimer's disease 19 MOTHER Diabetes mellitus 19 MOTHER FH: lung cancer 19 FATHER Hypertension 19 FATHER 19 MOTHER Review of Systems Constitutional: : Malaise: Sweats: Weakness Respiratory: : SOB with excertion: Shortness of breath: SputumNo: Cough, Dry, Hemoptysis, Other, Pleuritic Pain, Wheezing, Wheezing Cardiovascular: : Edema: Lt Headedness: Paroxysmal Noc. DyspneaNo: Chest Pain, Orthopnea, Other, Palpitations Neurological: : Confusion: Weakness Exam Exam Vital Signs Date Time Temp Pulse Resp B/P Pulse Ox O2 Delivery O2 Flow Rate FiO2 12/25/16 04:00 93 2.00 12/25/16 04:00 96.7 75 20 154/107 92 Nasal Cannula 2.00 12/25/16 03:00 78 12/25/16 03:00 76 16 149/107 95 Nasal Cannula 2.00 12/25/16 02:21 94 2.00 12/25/16 02:00 75 21 170/106 94 Nasal Cannula 2.00 12/25/16 01:00 78 17 168/104 94 Nasal Cannula 2.00 12/25/16 00:00 96.9 79 19 150/96 93 Nasal Cannula 2.00 12/25/16 00:00 93 2.00 12/24/16 23:00 81 13 93 Nasal Cannula 2.00 12/24/16 22:24 84 12/24/16 22:13 95 2.00 12/24/16 22:00 81 10 92 Nasal Cannula 2.00 12/24/16 21:00 87 31 154/94 92 Nasal Cannula 2.00 12/24/16 21:00 93 2.00 12/24/16 20:00 98.3 84 12 170/101 95 Nasal Cannula 2.00 12/24/16 19:12 2.00 12/24/16 19:05 92 2.00 12/24/16 18:00 86 14 148/91 96 12/24/16 17:54 40 153/100 91 12/24/16 17:00 92 2.00 12/24/16 16:56 172/102 I & O 12/25/16 07:00 Intake Total 500 ml Output Total 650 ml Balance -150 ml General Appearance: No Apparent Distress HEENT: PERRL/EOMI Respiratory: Chest Non Tender No Respiratory Distress Crackles Decreased Breath Sounds Cardiovascular: Regular Rate, Rhythm Neurologic/Psychiatric: Alert Skin: Normal Color Warm/Dry Results Lab Laboratory Tests 12/24/16 17:07 12/25/16 03:28 Assessment/Plan Assessment/Plan COPDAE -solumedrol 40 Q6, SVNS Acute renal failure - monitor CHF with EF of 31 % CAD Paroxysmal A-fib/flutter Tobacco dependance Hx of Methamphetamine abuse - pt states he quit 1 yr ago Pt states he is tired of being in hospital and he is tired of taking his medications. Pt is very grumpy and states he is tired of this stuff. I am going to consult hospice for education. PT refused ABG, and was ripping off monitor leads. He has been very angry with RN. Clinical Quality Measures DVT/VTE Risk/Contraindication: Risk Factor Score Per Nursin RFS Level Per Nursing on Admit: 4+=Very High AMILCAR GLASGOW DO Dec 25, 2016 06:23
[2016-12-25] MEDS: RT-BUDESONIDE NEBS 0.5 MG/2ML (PULMICORT) AMP INH SCH ×2 (06:43→19:19)
[2016-12-25] MEDS: inSUlin (REGULAR) HUMAN 1 UNIT/0.01 ML (CHARGE PER UNIT) SC SCH ×4 (06:56→21:09)
[2016-12-25] MEDS ORDERED: FLU TRIvalent (5 YOA+) 2016-17 (AFLURIA) 0.5 ML IM ONE (07:00)
[2016-12-25] MEDS ORDERED: KCL 20 MEQ TAB (K-DUR) PO SCH (07:00)
[2016-12-25] MEDS: FUROSEMIDE 40 MG/4 ML INJ (LASIX) IVP SCH (07:48)
[2016-12-25] MEDS: ASPIRIN 81 MG CHEW (CHILDREN'S ASA) PO SCH (07:49)
--- NOTE | 2016-12-25 07:57 | Diagnostic Imaging Report ---
INDICATION: Dyspnea. FINDINGS: Portable upright view of the chest is obtained. Since study one day earlier, there is unchanged cardiomegaly. There is no pneumothorax, consolidation or evidence of significant pleural fluid. No definite change is seen. IMPRESSION: Cardiomegaly without acute abnormality detected. Dictated by: Dictated on workstation # [id number]
[2016-12-25] MEDS ORDERED: meTOprolol SUCCINATE 100 MG (TOPROL XL) TAB PO SCH (09:00)
--- NOTE | 2016-12-25 09:07 | Progress Note-Cardiology ---
Cardiology SOAP Progress Note Subjective: Sitting up in bed. No new c/o. Breathing better. No c/o CP, palpitations, syncope or near syncope. Objective: I&O/Vital Signs Vital Sign - Last 12Hours 12/24/16 12/24/16 12/24/16 12/25/16 22:13 22:24 23:00 00:00 Pulse 84 81 Resp 13 B/P Pulse Ox 95 93 93 O2 Delivery Nasal Cannula O2 Flow Rate 2.00 2.00 2.00 12/25/16 12/25/16 12/25/16 12/25/16 00:00 01:00 02:00 02:21 Temp 96.9 Pulse 79 78 75 Resp 19 17 21 B/P 150/96 168/104 170/106 Pulse Ox 93 94 94 94 O2 Delivery Nasal Cannula Nasal Cannula Nasal Cannula O2 Flow Rate 2.00 2.00 2.00 2.00 12/25/16 12/25/16 12/25/16 12/25/16 03:00 03:00 04:00 04:00 Temp 96.7 Pulse 76 78 75 Resp 16 20 B/P 149/107 154/107 Pulse Ox 95 92 93 O2 Delivery Nasal Cannula Nasal Cannula O2 Flow Rate 2.00 2.00 2.00 12/25/16 12/25/16 12/25/16 12/25/16 06:43 06:50 07:00 08:00 Pulse 75 Pulse Ox 95 95 93 O2 Flow Rate 2.00 2.00 2.00 Intake and Output 12/25/16 00:00 Intake Total 200 ml Output Total 350 ml Balance -150 ml Weight (Pounds): 242 Weight (Ounces): 8.0 Weight (Calculated Kilograms): 109.406136 Constitutional: AAO x 3 well-developed well-nourished Respiratory: No accessory muscle use, crackles (coarse basal) rhonchi ( scattered over large airways) Cardiovascular: regular rate-rhythm S1 and S2 systolic murmur (faint TINY at cardiac base) Gastrointestional: No tender, softNo guarding, No rebound, audible bowel sounds Extremities: No clubbing, No cyanosis, significant edema (mild to mod) Neurologic/Psychiatric: oriented x 3 grossly intact power is 5/5 both on sides Skin: No rash on exposed areas, No ulcerations on exposed areas Results/Procedures: Labs Laboratory Tests 12/24/16 17:07: Alanine Aminotransferase (ALT/SGPT) 32, Albumin 3.9, Alkaline Phosphatase 56, Anion Gap 14, Aspartate Amino Transf (AST/SGOT) 19, B-Type Natriuretic Peptide 512.9H, BUN/Creatinine Ratio 25, Band Neutrophils 2, Basophils # (Auto) 0.1, Basophils % (Manual) 0, Basophils (%) (Auto) 0, Blood Morphology Comment NORMAL , Blood Urea Nitrogen 33H, Calcium Level 9.0, Carbon Dioxide Level 28, Chloride Level 98, Creatinine 1.34H, Eosinophils # (Auto) 0.0, Eosinophils % (Manual) 0, Eosinophils (%) (Auto) 0, Estimat Glomerular Filtration Rate 55, Glucose Level 299H, Hematocrit 40, Hemoglobin 12.7L, Lymphocytes # (Auto) 0.4L, Lymphocytes % (Manual) 10, Lymphocytes (%) (Auto) 4L, Mean Corpuscular Hemoglobin 28, Mean Corpuscular Hemoglobin Concent 32, Mean Corpuscular Volume 88, Mean Platelet Volume 9.3, Monocytes # (Auto) 0.8, Monocytes % (Manual) 1, Monocytes (%) (Auto ) 7, Neutrophils # (Auto) 10.7H, Neutrophils % (Manual) 87, Neutrophils (%) ( Auto) 89H, Platelet Count 210, Potassium Level 4.7, Red Blood Count 4.56, Red Cell Distribution Width 16.5H, Sodium Level 140, Thyroid Stimulating Hormone ( TSH) 1.65, Total Bilirubin 0.5, Total Protein 6.0L, Troponin I < 0.30, White Blood Count 12.0H 12/24/16 20:50: Urine Bacteria NEGATIVE, Urine Bilirubin NEGATIVE, Urine Casts NONE, Urine Clarity SLIGHTLY CLOUDY, Urine Color YELLOW, Urine Crystals NONE, Urine Culture Indicated NO, Urine Glucose (UA) NEGATIVE, Urine Ketones NEGATIVE, Urine Leukocyte Esterase NEGATIVE, Urine Mucus NEGATIVE, Urine Nitrite NEGATIVE, Urine Other FEW SPERMH, Urine Protein NEGATIVE, Urine RBC 5-10H, Urine RBC (Auto ) 4+H, Urine Specific [place] 1.015L, Urine Urobilinogen NORMAL, Urine WBC RARE , Urine pH 6 12/24/16 22:34: Glucometer 320H 12/25/16 03:28: Alanine Aminotransferase (ALT/SGPT) 33, Albumin 3.9, Alkaline Phosphatase 55, Anion Gap 15H, Aspartate Amino Transf (AST/SGOT) 22, BUN/Creatinine Ratio 28, Basophils # (Auto) 0.0, Basophils (%) (Auto) 0, Blood Urea Nitrogen 35H, Calcium Level 9.0, Carbon Dioxide Level 25, Chloride Level 99, Creatinine 1.27, Eosinophils # (Auto) 0.0, Eosinophils (%) (Auto) 0, Estimat Glomerular Filtration Rate 59, Glucose Level 318H, Hematocrit 39L, Hemoglobin 12.5L, Lymphocytes # (Auto) 0.2L, Lymphocytes (%) (Auto) 2L, Mean Corpuscular Hemoglobin 28, Mean Corpuscular Hemoglobin Concent 32, Mean Corpuscular Volume 88, Mean Platelet Volume 9.9, Monocytes # (Auto) 0.3, Monocytes (%) (Auto) 4, Neutrophils # (Auto) 8.2H, Neutrophils (%) (Auto) 94H, Platelet Count 208, Potassium Level 5.0, Red Blood Count 4.47, Red Cell Distribution Width 16.4H, Sodium Level 139, Total Bilirubin 0.4, Total Protein 5.9L, White Blood Count 8.8 , Magnesium Level 2.1, Phosphorus Level 4.8H A/P: Assessment: Acute exac of COPD due to lower resp tract infection CABG 3 vessel, GUZMAN to LAD, reverse saphenous vein graft to RPDA, reverse saphenous vein graft to OM1. Kaylen-atrial Farley MAZE by Dr. Raman on 08-26-16 CAD and cardiomyopathy. MPI of 01/22/16 showed ischemic cm; apical infarction with only minimal periinfarct ischemia; LVEF 31%. Subsequent cardiac cath of April 29, 2016 showed modately severe MVD, including the left main; LVEF 50%; elevated LVEDP; no significant MR. Chronic systolic and diastolic CHF Intermittent noncompliance with meds Paroxysmal A-fib/flutter Pradaxa for stroke prophylaxis HTN Echocardiogram from July 2015 at [facility] by Dr. Farley showed CM with an LVEF of 30% and diastolic dysfunction. Echocardiogram of 10-23-16 technically difficult study. LVEF 55-60%. Mild MR and TR. No evidence of significant valvular stenosis. PASP estimated to be approx 50mmHg. Mild diastolic dysfunction of LV DM Myasthenia gravis - chronic steroid therapy H/o chronic left eye droop/closure following cataract surgery in July 2015 COPD Tobaccoism - 1/2 PPD - cessation advised Methamphetamine abuse - cessation advised Atherosclerotic plaque within the bilateral internal carotid arteries contributing to less than 50% stenosis per carotid u/s of 2-9-16 Suspected KILLIAN Chronic mild transaminase elevation, present even before statin therapy Plan: * Continue diuretics * Monitor lab closely * Repeat echo * Management of COPD and resp tract infection and other med problems is with Dr Pérez * We spoke with him and answered questions * OK to transfer to [facility] with tele Physician Assessment Physician Assessment Lungs: dec bs at bases, scattered rhonchi over large airways, coarse basal crackles Cor: reg A&R * As documented in our note above MARISA POPE SHELLACKER Dec 25, 2016 09:07 JULIUS ALCARAZ MD FACP FAC CCDS Dec 25, 2016 10:11
[2016-12-25] MEDS ORDERED: CARV12.53 PO (10:25)
[2016-12-25] MEDS ORDERED: OXYC-465 PO (10:25)
[2016-12-25] MEDS ORDERED: BUME1TAB4 PO (10:25)
[2016-12-25] MEDS ORDERED: DOXY100C2 PO (10:25)
[2016-12-25] MEDS ORDERED: PRD20T PO (10:25)
[2016-12-25] MEDS ORDERED: ATOR20TA66 PO (10:25)
[2016-12-25] MEDS ORDERED: METF500T4 PO (10:25)
--- NOTE | 2016-12-25 11:42 | History & Physical-Hospitalist ---
HPI History of Present Illness: HPI/Chief Complaint CC: SOB with swelling HPI: This is a 56yoWM clinic pt of Dr. Yip with prior hx of CABG 6 months ago along with severe COPD that presented to [facility] clinic found to be in respiratory distress so directly admitted to ICU. Pt was found to have no infiltrate on CXR only cardiomegaly. WBC 12 on admission now 8.8. CMP revealed Creat 1.34 on admission now 1.27. BNP was 512.9, Ua was essentially normal except for hematuria. Pt seen by Dr. Rosario and Dr. Amezquita. Pt received Lasix but cardiology thought it was more COPD exacerbation. retail merchandising manager: RN states that pt would like to go home. RN states that pt is likely stable for DC. Patient Interview: Pt states that he wishes to DC. Dr. Her informs pt that he may be evaluated for home O2, and pt agrees to this plan. Physical exam reveals coarseness in lungs. Pt states that he had his CABG on the 26 of August, and has had significant difficulty in recovering. Pt has been in-and-out of [facility] for recovery purposes, and has had pneumonia before. Palliative Care nurse was talking to him and it appears that he wants to give up this fight because he is never going to get well and wants to go on Hospice. Scribed by Amadeo Goss under the direct supervision of Dr. Her. Source: patient Date Seen 12/25/16 Attending Physician Annalise Her DO PCP Macho Watson MD Referring Physician Date of Admission Dec 24, 2016 at 16:28 Home Medications & Allergies Home Medications Reviewed patient Home Medication Reconciliation Form Allergies Coded Allergies: No Known Drug Allergies (Unverified , 09/23/13) Past Kbubpuh-Gycyvo-Onxele Hx Patient Social History Marrital Status: Employed/Student: retired Alcohol Use: Denies Use Recreational Drug Use: Yes Smoking Status: Current Everyday Smoker Type Used: Cigarettes Physical Abuse Screen: No Sexual Abuse: No Recent Foreign Travel: No Contact w/other who traveled: No Recent Hopitalizations: Yes Recent Infectious Disease Expo: No Immunizations Up To Date Tetanus Booster (TDap): Unknown Date of Influenza Vaccine: Dec 24, 2016 Seasonal Allergies Seasonal Allergies: No Surgeries HX Surgeries: Yes (CATARACT, heart cath) Surgeries: CABG, Eye Surgery Respiratory Hx Respiratory Disorders: Yes (tobaccoism) Respiratory Disorders: COPD, Emphysema, Pneumonia Cardiovascular Hx Cardiovascular Disorders: Yes (history of congestive heart failure) Cardiac Disorders: Atrial Fibrillation, High Cholesterol, Hypertension Neurological Hx Neurological Disorders: Yes (MYASTHENIS GRAVIS) Reproductive System Hx Reproductive Disorders: No Sexually Transmitted Disease: No HIV/AIDS: No Genitourinary Hx Genitourinary Disorders: Yes Genitourinary Disorders: Renal Failure Gastrointestinal Hx Gastrointestinal Disorders: Yes Gastrointestinal Disorders: Gastroesophageal Reflux Musculoskeletal Hx Musculoskeletal Disorders: Yes (CHRONIC NECK PAIN) Musculoskeletal Disorders: Chronic Back Pain, Gout Endocrine Hx Endocrine Disorders: Yes Endocrine Disorders: Diabetes, Non-Insulin dep HEENT HX ENT Disorders: Yes (CATARACT SURGERY) Loss of Vision: Denies Hearing Impairment: Denies Cancer Hx Cancer: No Psychosocial Hx Psychiatric Problems: No Integumentary HX Skin/Integumentary Disorder: No Blood Transfusions Hx Blood Disorders: No Family Medical History Family Hx: Alzheimer's disease 19 MOTHER Diabetes mellitus 19 MOTHER FH: lung cancer 19 FATHER Hypertension 19 FATHER 19 MOTHER Review of Systems Constitutional: see HPI dizziness malaise weakness EENTM: no symptoms reported Respiratory: short of breath wheezing Cardiovascular: no symptoms reported Gastrointestinal: no symptoms reported Genitourinary: no symptoms reported Musculoskeletal: back pain joint pain Skin: see HPI Psychiatric/Neurological: Depressed All Other Systems Reviewed Negative Unless Noted: Yes Physical Exam Physical Exam Vital Signs Vital Sign - Last 12Hours 12/24/16 12/24/16 12/24/16 12/24/16 12/24/16 16:56 17:00 17:54 18:00 20:00 Temp 98.3 Pulse 86 Resp 40 B/P 172/102 Pulse Ox 92 O2 Delivery Nasal Cannula O2 Flow Rate 2.00 Capillary Refill : General Appearance: No Apparent Distress WD/WN Chronically ill Obese Eyes: Bilateral Eye Normal Inspection, Bilateral Eye PERRL HEENT: PERRL/EOMI Normal ENT Inspection Pharynx Normal Neck: Full Range of Motion Normal Inspection Non Tender Supple Carotid Bruit Respiratory: Chest Non Tender No Accessory Muscle Use No Respiratory Distress Crackles Decreased Breath Sounds Wheezing Cardiovascular: Regular Rate, Rhythm No Edema No Gallop No JVD No Murmur Normal Peripheral Pulses Gastrointestinal: Normal Bowel Sounds No Organomegaly No Pulsatile Mass Non Tender Soft Back: Normal Inspection No CVA Tenderness No Vertebral Tenderness Extremity: Normal Capillary Refill Normal Inspection Normal Range of Motion Non Tender No Calf Tenderness No Pedal Edema Neurologic/Psychiatric: Alert Oriented x3 No Motor/Sensory Deficits Depressed Affect Skin: Normal Color Warm/Dry Lymphatic: No Adenopathy Results Results/Procedures Lab Laboratory Tests 12/24/16 17:07 12/25/16 03:28 Assessment/Plan Admission Diagnosis Assessment: Respiratory failure acute on chronic Severe COPD w/exacerbation CAD previous bypass 08/26/16 with long recovery resulting in debility DM CRI AF GERD Assessment and Plan Plan: Home O2 eval Breathing treatments Dr. Jones Consult for leg wound Reconcile home meds Move to 4th floor and DC tomorrow likely on Hospice IV steroids IV lasix Clinical Quality Measures DVT/VTE Risk/Contraindication: Risk Factor Score Per Nursin RFS Level Per Nursing on Admit: 4+=Very High ANNALISE HER DO Dec 25, 2016 11:42
[2016-12-25] MEDS: oxyCODONE/APAP 5/325MG (PERCOCET 5) TABLET PO PRN ×2 (11:56→16:51)
[2016-12-25] MEDS ORDERED: oxyCODONE/APAP 10/325MG (PERCOCET 10) TABLET PO PRN (12:15)
[2016-12-25] MEDS ORDERED: RT-ALBUTEROL SULF 2.5 MG/3 ML PRE-MIX VIAL IH PRN (12:15)
[2016-12-25] MEDS: inSUlin ASPART (NovoLOG) 1 UNIT/0.01 ML (CHARGE PER UNIT) SC SCH (16:02)
[2016-12-25] MEDS: CARVEDILOL 12.5 MG (COREG) TABLET PO SCH (21:00)
[2016-12-25] MEDS ORDERED: ATORVASTATIN 20 MG (LIPITOR) TABLET PO SCH (21:00)
[2016-12-25] MEDS: metFORMIN 500 MG (GLUCOPHAGE) TAB PO SCH (21:00)
[2016-12-25] MEDS ORDERED: MONTELUKAST 10 MG (SINGULAIR) TAB PO SCH (21:00)
[2016-12-25] MEDS: DABIGATRAN 150 MG (PRADAXA) CAPSULE PO SCH (21:00)
[2016-12-25] MEDS ORDERED: BUMETANIDE 1 MG (BUMEX) TAB PO SCH (21:00)
[2016-12-25] MEDS: inSUlin DETERMIR 1 UNIT/0.01 ML (LEVEMIR) CHARGE PER UNIT SQ SCH (21:09)
[2016-12-26] VITALS: BP 162/95
[2016-12-26] MEDS: oxyCODONE/APAP 5/325MG (PERCOCET 5) TABLET PO PRN ×3 (00:37→10:43)
[2016-12-26] MEDS: RT-ALBUTEROL/IPRATROPIUM 3 ML (DUONEB) VIAL INH SCH ×3 (02:37→10:18)
[2016-12-26 04:00] VITALS: BP 152/97
[2016-12-26] MEDS: methylPREDNISolone 40 MG/ML (Solu-MEDROL) VIAL IV SCH ×2 (06:03→11:20)
[2016-12-26] MEDS: NYSTATIN ORAL SUSP 5 ML UDC PO SCH ×2 (06:03→10:42)
[2016-12-26] MEDS: inSUlin (REGULAR) HUMAN 1 UNIT/0.01 ML (CHARGE PER UNIT) SC SCH ×2 (06:11→11:20)
[2016-12-26] MEDS: inSUlin ASPART (NovoLOG) 1 UNIT/0.01 ML (CHARGE PER UNIT) SC SCH ×2 (06:11→11:20)
[2016-12-26] MEDS: RT-BUDESONIDE NEBS 0.5 MG/2ML (PULMICORT) AMP INH SCH (06:23)
[2016-12-26 07:06] LABS: BASOPHILS % (AUTO) 0 % (0-10); EOSINOPHILS % (AUTO) 0 % (0-10); LYMPHOCYTES # (AUTO) 0.3 X 10^3 (1.0-4.0); LYMPHOCYTES % (AUTO) 2 % (12-44); MEAN CORPUSCULAR HEMOGLOBIN 28 PG (25-34); MEAN CORPUSCULAR HGB CONC 32 G/DL (32-36); MEAN CORPUSCULAR VOLUME 87 FL (80-99); MEAN PLATELET VOLUME 9.3 FL (7.4-10.4); MONOCYTES % (AUTO) 6 % (0-12); NEUTROPHILS % (AUTO) 92 % (42-75); PLATELET COUNT 233 10^3/uL (130-400); RED BLOOD COUNT 4.69 10^6/uL (4.35-5.85); RED CELL DISTRIBUTION WIDTH 16.1 % (10.0-14.5); WHITE BLOOD COUNT 16.3 10^3/uL (4.3-11.0)
[2016-12-26 07:18] LABS: ALANINE AMINOTRANSFERASE 31 U/L (0-55); ALBUMIN 3.9 G/DL (3.2-4.5); ANION GAP 15 MMOL/L (5-14); ASPARTATE AMINO TRANSFERASE 22 U/L (5-34); BILIRUBIN,TOTAL 0.4 MG/DL (0.1-1.0); BLOOD UREA NITROGEN 41 MG/DL (7-18); BUN/CREATININE RATIO 35; CALCIUM 9.7 MG/DL (8.5-10.1); CARBON DIOXIDE 27 MMOL/L (21-32); CHLORIDE 99 MMOL/L (98-107); CREATININE SERUM 1.17 MG/DL (0.60-1.30); GFR ESTIMATED > 60; GLUCOSE 137 MG/DL (70-105); POTASSIUM 5.3 MMOL/L (3.6-5.0); SODIUM 141 MMOL/L (135-145); TOTAL PROTEIN 6.2 G/DL (6.4-8.2)
[2016-12-26 08:00] VITALS: BP 145/86
[2016-12-26] MEDS ORDERED: UMECLIDINIUM BROMIDE (INCRUSE ELLIPTA) 7'S IH SCH (08:00)
[2016-12-26] MEDS: DABIGATRAN 150 MG (PRADAXA) CAPSULE PO SCH (08:19)
[2016-12-26] MEDS: ASPIRIN 81 MG CHEW (CHILDREN'S ASA) PO SCH (08:19)
[2016-12-26] MEDS: CARVEDILOL 12.5 MG (COREG) TABLET PO SCH (08:19)
[2016-12-26] MEDS: metFORMIN 500 MG (GLUCOPHAGE) TAB PO SCH (08:19)
[2016-12-26] MEDS: FUROSEMIDE 40 MG/4 ML INJ (LASIX) IVP SCH (08:19)
[2016-12-26] MEDS: KCL 20 MEQ TAB (K-DUR) PO SCH ×2 (08:19→08:20)
[2016-12-26] MEDS: inSUlin DETERMIR 1 UNIT/0.01 ML (LEVEMIR) CHARGE PER UNIT SQ SCH (08:24)
--- NOTE | 2016-12-26 08:37 | Pulmonary Progress Note ---
Subjective Subjective/Events-last exam No complications noted currently. Exam Exam Vital Signs Date Time Temp Pulse Resp B/P Pulse Ox O2 Delivery O2 Flow Rate FiO2 12/26/16 06:26 94 1.00 12/26/16 04:00 97.0 76 20 152/97 94 Nasal Cannula 1.00 12/26/16 02:37 94 1.00 12/26/16 00:00 97.2 80 22 162/95 93 Nasal Cannula 1.00 12/25/16 22:37 95 1.00 12/25/16 20:45 93 2.00 12/25/16 20:00 98.3 83 18 164/88 94 Nasal Cannula 1.50 12/25/16 19:24 94 1.00 12/25/16 19:19 94 1.00 12/25/16 17:21 96.7 12/25/16 16:00 149/108 12/25/16 13:59 95 1.00 12/25/16 12:26 96.7 12/25/16 11:56 96.7 I & O 12/26/16 07:00 Intake Total 2900 ml Output Total 1800 ml Balance 1100 ml General Appearance: No Apparent Distress WD/WN Chronically ill Obese HEENT: PERRL/EOMI Normal ENT Inspection Pharynx Normal Neck: Full Range of Motion Normal Inspection Non Tender Supple Carotid Bruit Respiratory: Chest Non Tender No Accessory Muscle Use No Respiratory Distress Crackles Decreased Breath Sounds Wheezing Cardiovascular: Regular Rate, Rhythm No Edema No Gallop No JVD No Murmur Normal Peripheral Pulses Extremity: Normal Capillary Refill Normal Inspection Normal Range of Motion Non Tender No Calf Tenderness No Pedal Edema Neurologic/Psychiatric: Alert Oriented x3 No Motor/Sensory Deficits Depressed Affect Skin: Normal Color Warm/Dry Lymphatic: No Adenopathy Results Lab Laboratory Tests 12/24/16 17:07 12/25/16 03:28 12/26/16 05:57 Assessment/Plan Assessment/Plan COPDAE -solumedrol 40 Q6, SVNS Acute renal failure - monitor CHF with EF of 31 % CAD Paroxysmal A-fib/flutter Tobacco dependance Hx of Methamphetamine abuse - pt states he quit 1 yr ago Probable home with hospice today Clinical Quality Measures DVT/VTE Risk/Contraindication: Risk Factor Score Per Nursin RFS Level Per Nursing on Admit: 4+=Very High AMILCAR GLASGOW DO Dec 26, 2016 08:37
[2016-12-26] MEDS ORDERED: ASPIRIN E.C. 81 MG (ECOTRIN) TAB PO SCH (09:00)
--- NOTE | 2016-12-26 09:54 | Progress Note-Cardiology ---
Cardiology SOAP Progress Note Subjective: Sitting up on the side of the bed. Continues to feel short of breath. No c/o CP, palpitations, syncope or near syncope. Continues to c/o LE edema. Objective: I&O/Vital Signs Vital Sign - Last 12Hours 12/25/16 12/26/16 12/26/16 12/26/16 22:37 00:00 02:37 04:00 Temp 97.2 97.0 Pulse 80 76 Resp 22 20 B/P 162/95 152/97 Pulse Ox 95 93 94 94 O2 Delivery Nasal Cannula Nasal Cannula O2 Flow Rate 1.00 1.00 1.00 1.00 12/26/16 12/26/16 12/26/16 06:26 08:00 08:20 Temp 97.2 Pulse 87 Resp 20 B/P 145/86 Pulse Ox 94 92 92 O2 Delivery Nasal Cannula O2 Flow Rate 1.00 1.00 2.00 Intake and Output 12/25/16 23:59 Intake Total 2400 ml Output Total 1800 ml Balance 600 ml Weight (Pounds): 244 Weight (Ounces): 0.0 Weight (Calculated Kilograms): 110.454574 Constitutional: AAO x 3 well-developed well-nourished Respiratory: No accessory muscle use, crackles (coarse basal) rhonchi ( scattered over large airways) Cardiovascular: regular rate-rhythm S1 and S2 systolic murmur (faint TINY at cardiac base) Gastrointestional: No tender, softNo guarding, No rebound, audible bowel sounds Extremities: No clubbing, No cyanosis, significant edema (mild to mod) Neurologic/Psychiatric: oriented x 3 grossly intact power is 5/5 both on sides Skin: No rash on exposed areas, No ulcerations on exposed areas Results/Procedures: Labs Laboratory Tests 12/25/16 11:51: Glucometer 380H 12/25/16 16:02: Glucometer 413*H 12/25/16 20:50: Glucometer 386H 12/26/16 05:57: Alanine Aminotransferase (ALT/SGPT) 31, Albumin 3.9, Alkaline Phosphatase 62, Anion Gap 15H, Aspartate Amino Transf (AST/SGOT) 22, BUN/Creatinine Ratio 35, Basophils # (Auto) 0.0, Basophils (%) (Auto) 0, Blood Urea Nitrogen 41H, Calcium Level 9.7, Carbon Dioxide Level 27, Chloride Level 99, Creatinine 1.17, Eosinophils # (Auto) 0.0, Eosinophils (%) (Auto) 0, Estimat Glomerular Filtration Rate > 60, Glucose Level 137H, Hematocrit 41, Hemoglobin 13.0L, Lymphocytes # (Auto) 0.3L, Lymphocytes (%) (Auto) 2L, Mean Corpuscular Hemoglobin 28, Mean Corpuscular Hemoglobin Concent 32, Mean Corpuscular Volume 87, Mean Platelet Volume 9.3, Monocytes # (Auto) 1.0, Monocytes (%) (Auto) 6, Neutrophils # (Auto) 15.0H, Neutrophils (%) (Auto) 92H, Platelet Count 233, Potassium Level 5.3H, Red Blood Count 4.69, Red Cell Distribution Width 16.1H, Sodium Level 141, Total Bilirubin 0.4, Total Protein 6.2L, White Blood Count 16.3H 12/26/16 06:05: Glucometer 164H Microbiology 12/25/16 Gram Stain - Final, Resulted 12/25/16 Sputum Culture - Preliminary, Resulted Usual/normal jean claude isolated. A/P: Assessment: Acute exac of COPD due to lower resp tract infection CABG 3 vessel, GUZMAN to LAD, reverse saphenous vein graft to RPDA, reverse saphenous vein graft to OM1. Kaylen-atrial Farley MAZE by Dr. Raman on 08-26-16 CAD and cardiomyopathy. MPI of 01/22/16 showed ischemic cm; apical infarction with only minimal periinfarct ischemia; LVEF 31%. Subsequent cardiac cath of April 29, 2016 showed modately severe MVD, including the left main; LVEF 50%; elevated LVEDP; no significant MR. Chronic systolic and diastolic CHF Intermittent noncompliance with meds Paroxysmal A-fib/flutter Pradaxa for stroke prophylaxis HTN Echocardiogram from July 2015 at [facility] by Dr. Farley showed CM with an LVEF of 30% and diastolic dysfunction. Echocardiogram of 10-23-16 technically difficult study. LVEF 55-60%. Mild MR and TR. No evidence of significant valvular stenosis. PASP estimated to be approx 50mmHg. Mild diastolic dysfunction of LV DM Myasthenia gravis - chronic steroid therapy H/o chronic left eye droop/closure following cataract surgery in July 2015 COPD Tobaccoism - / PPD - cessation advised Methamphetamine abuse - cessation advised Atherosclerotic plaque within the bilateral internal carotid arteries contributing to less than 50% stenosis per carotid u/s of 2-9-16 Suspected KILLIAN Chronic mild transaminase elevation, present even before statin therapy Plan: * Continue diuretics * Monitor lab closely * Repeat echo pending * Verbalized frustration with continued illness * Management of COPD and resp tract infection and other med problems is with Dr Pérez * We spoke with him and answered questions * OK to discharge home from cardiac stand point MARISA POPE Dec 26, 2016 09:54
[2016-12-26] MEDS ORDERED: FUROSEMIDE 40 MG/4 ML INJ (LASIX) IVP NR (10:00)
--- NOTE | 2016-12-26 11:18 | Discharge Summary-Hospitalist ---
Diagnosis/Chief Complaint Date of Admission Dec 24, 2016 at 16:28 Date of Discharge Admission Diagnosis Assessment: Respiratory failure acute on chronic Severe COPD w/exacerbation CAD previous bypass 08/26/16 with long recovery resulting in debility DM CRI AF GERD Discharge Diagnosis Assessment: Respiratory failure acute on chronic Severe COPD w/exacerbation CAD previous bypass 08/26/16 with long recovery resulting in debility DM CRI AF GERD Leukocytosis due to steroid management Plan: Home O2 eval Breathing treatments Dr. Jones Consult for leg wound Reconcile home meds Move to 4th floor and DC tomorrow likely on Hospice IV steroids IV lasix Reason Hospital Visit/Course CC: SOB with swelling HPI: This is a 56yoWM clinic pt of Dr. Yip with prior hx of CABG 6 months ago along with severe COPD that presented to [facility] clinic found to be in respiratory distress so directly admitted to ICU. Pt was found to have no infiltrate on CXR only cardiomegaly. WBC 12 on admission now 8.8. CMP revealed Creat 1.34 on admission now 1.27. BNP was 512.9, Ua was essentially normal except for hematuria. Pt seen by Dr. Rosario and Dr. Amezquita. Pt received Lasix but cardiology thought it was more COPD exacerbation. 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 RN states that pt is likely stable for DC. Patient Interview: Pt states that he wishes to DC. Dr. Her informs pt that he may be evaluated for home O2, and pt agrees to this plan. Physical exam reveals coarseness in lungs. Pt states that he had his CABG on the 26 of August, and has had significant difficulty in recovering. Pt has been in-and-out of [facility] for recovery purposes, and has had pneumonia before. Palliative Care nurse was talking to him and it appears that he wants to give up this fight because he is never going to get well and wants to go on Hospice. Scribed by Amadeo Goss under the direct supervision of Dr. Her. Notes from 12/26/2016: Chart Review: No fever Vitals stable WBC up to 16.3 due to steroids Creat 1.17 K+ 5.3 so will hold SW Review: Pt qualified for home O2 Patient Interview: Pt states that he has not yet been evaluated for home O2. Physical exam stable. Pt is having regular BMs. Pt states that he took his Oxygen of temporarily. Pt sees Wali Crawley at [facility]. Pt states that he does not feel any better now than he did upon admission. Dr. Her discusses hospice with pt. vital signs stable, pleasant, debilitated, chronically ill, pale Sitting in chair Irregular rate and rhythm, wheezes are noted in the upper lobes but distant in the lower lobes No edema change from 1+ Plan: Pt declined hospice, so will DC to home Hold K+ supplements Continuous home O2 approved Follow up with Wali Crawley on the . Scribed by Amadeo Goss under the direct supervision of Dr. Her. Hospital course: Patient was admitted directly from [facility] Dr. Yip due to shortness of breath. Cardiology and pulmonology were both consulted and found the patient to be an exacerbation of COPD more than heart failure so he was aggressively treated with IV steroids maintained on oxygen of which she met criteria at discharge so those orders were initiated for 2 L continuous use to support this severe COPD and congestive congestive heart failure patient. Overall his prognosis is extremely poor he was getting tired of being rehospitalized and not feeling any better after he was discharged home similar to today so he was supported anyway possible but unable to modify severe comorbid conditions that he has to prevent rehospitalization so hospice was consulted. He was very interested in hospice and he wanted to talk to his power of title attorney before signing papers and I will update [facility] on his desire to explore that option since it appears to me to be a good option considering the end-stage illnesses that he has. Discharge Summary Discharge Physical Examination Allergies: Coded Allergies: No Known Drug Allergies (Unverified , 09/23/13) Vitals & I&Os Vital Signs Date Time Temp Pulse Resp B/P Pulse Ox O2 Delivery O2 Flow Rate FiO2 12/26/16 12:00 97.1 79 20 153/93 95 Nasal Cannula 1.00 Hospital Course Labs (last 24 hrs) Laboratory Tests 12/25/16 16:02: Glucometer 413*H 12/25/16 20:50: Glucometer 386H 12/26/16 05:57: Alanine Aminotransferase (ALT/SGPT) 31, Albumin 3.9, Alkaline Phosphatase 62, Anion Gap 15H, Aspartate Amino Transf (AST/SGOT) 22, BUN/Creatinine Ratio 35, Basophils # (Auto) 0.0, Basophils (%) (Auto) 0, Blood Urea Nitrogen 41H, Calcium Level 9.7, Carbon Dioxide Level 27, Chloride Level 99, Creatinine 1.17, Eosinophils # (Auto) 0.0, Eosinophils (%) (Auto) 0, Estimat Glomerular Filtration Rate > 60, Glucose Level 137H, Hematocrit 41, Hemoglobin 13.0L, Lymphocytes # (Auto) 0.3L, Lymphocytes (%) (Auto) 2L, Mean Corpuscular Hemoglobin 28, Mean Corpuscular Hemoglobin Concent 32, Mean Corpuscular Volume 87, Mean Platelet Volume 9.3, Monocytes # (Auto) 1.0, Monocytes (%) (Auto) 6, Neutrophils # (Auto) 15.0H, Neutrophils (%) (Auto) 92H, Platelet Count 233, Potassium Level 5.3H, Red Blood Count 4.69, Red Cell Distribution Width 16.1H, Sodium Level 141, Total Bilirubin 0.4, Total Protein 6.2L, White Blood Count 16.3H 12/26/16 06:05: Glucometer 164H 12/26/16 11:11: Glucometer 260H Microbiology 12/25/16 Gram Stain - Final, Resulted 12/25/16 Sputum Culture - Preliminary, Resulted Usual/normal jean claude isolated. Pending Labs Laboratory Tests 12/26/16 05:57: Alanine Aminotransferase (ALT/SGPT) 31, Albumin 3.9, Alkaline Phosphatase 62, Anion Gap 15, Aspartate Amino Transf (AST/SGOT) 22, BUN/Creatinine Ratio 35, Basophils # (Auto) 0.0, Basophils (%) (Auto) 0, Blood Urea Nitrogen 41, Calcium Level 9.7, Carbon Dioxide Level 27, Chloride Level 99, Creatinine 1.17, Eosinophils # (Auto) 0.0, Eosinophils (%) (Auto) 0, Estimat Glomerular Filtration Rate > 60, Glucose Level 137, Hematocrit 41, Hemoglobin 13.0, Lymphocytes # (Auto) 0.3, Lymphocytes (%) (Auto) 2, Mean Corpuscular Hemoglobin 28, Mean Corpuscular Hemoglobin Concent 32, Mean Corpuscular Volume 87, Mean Platelet Volume 9.3, Monocytes # (Auto) 1.0, Monocytes (%) (Auto) 6, Neutrophils # (Auto) 15.0, Neutrophils (%) (Auto) 92, Platelet Count 233, Potassium Level 5.3, Red Blood Count 4.69, Red Cell Distribution Width 16.1, Sodium Level 141, Total Bilirubin 0.4, Total Protein 6.2, White Blood Count 16.3 12/26/16 06:05: Glucometer 164 12/26/16 11:11: Glucometer 260 Discharge Home Medications: Active Scripts Active Prednisone 10 Mg Tab.ds.pk 10 Mg PO DAILY Take 6 tabs(60mg)daily,decrease by 1 tab(10mg)every other day. Nystatin 100,000 Unit/1 Ml Oral.susp 5 Ml PO QIDACHS Oxycodone-Acetaminophen 10-325 (Oxycodone HCl/Acetaminophen) 1 Each Tablet 1 Tab PO Q8H PRN Reported Atorvastatin Calcium 20 Mg Tablet 20 Mg PO HS Carvedilol 12.5 Mg Tablet 12.5 Mg PO BID Metformin HCl 500 Mg Tablet 1,000 Mg PO BID TAKES 2 (500 MG) TABLETS Bumetanide 1 Mg Tablet 1 Mg PO BID Spiriva Respimat (Tiotropium [place]) 4 Gm Mist.inhal 2 Puff INH DAILY Albuterol Sulfate 2.5 Mg/3 Ml Vial.neb 2.5 Mg NEB Q4H PRN Novolog Flexpen (Insulin Aspart) 300 Units/3 Ml Solution 6 Units SC AC Levemir Flextouch (Insulin Detemir) 100 Unit/1 Ml Insuln.pen 18 Units SC BID Aspirin EC (Aspirin) 81 Mg Tablet.dr 81 Mg PO DAILY Potassium Chloride 20 Meq Tab.er.prt 20 Meq PO DAILY LAST FILLED 10/17/16 #30 Montelukast Sodium 10 Mg Tablet 10 Mg PO HS Pradaxa (Dabigatran Etexilate Mesylate) 150 Mg Capsule 150 Mg PO BID Instructions to patient/family Please see electonic discharge instructions given to patient. Clinical Quality Measures DVT/VTE Risk/Contraindication: Risk Factor Score Per Nursin RFS Level Per Nursing on Admit: 4+=Very High HAROLDO HER DO Dec 26, 2016 11:18
[2016-12-26] MEDS ORDERED: OXYC-465 PO (11:35)
[2016-12-26] MEDS ORDERED: NYST1000 PO (11:35)
[2016-12-26] MEDS ORDERED: PRED10TA22 PO (11:35)
--- NOTE | 2016-12-26 11:37 | Discharge Instructions ---
Discharge Instructions Discharge Medications New, Converted or Re-Newed RX: Transmitted to Pharmacy New Medications: Prednisone (Prednisone) 10 Mg Tab.ds.pk 10 MG PO DAILY Take 6 tabs(60mg)daily,decrease by 1 tab(10mg)every other day. # 42 PKG Nystatin (Nystatin) 100,000 Unit/1 Ml Oral.susp 5 ML PO QIDACHS #30 ML Continued Medications: Albuterol Sulfate (Albuterol Sulfate) 2.5 Mg/3 Ml Vial.neb 2.5 MG NEB Q4H PRN SHORTNESS OF BREATH EA Aspirin (Aspirin EC) 81 Mg Tablet.dr 81 MG PO DAILY TAB Atorvastatin Calcium (Atorvastatin Calcium) 20 Mg Tablet 20 MG PO HS Bumetanide (Bumetanide) 1 Mg Tablet 1 MG PO BID Carvedilol (Carvedilol) 12.5 Mg Tablet 12.5 MG PO BID Dabigatran Etexilate Mesylate (Pradaxa) 150 Mg Capsule 150 MG PO BID CAP Insulin Aspart (Novolog Flexpen) 300 Units/3 Ml Solution 6 UNITS SC AC EA Insulin Detemir (Levemir Flextouch) 100 Unit/1 Ml Insuln.pen 18 UNITS SC BID EA Metformin HCl (Metformin HCl) 500 Mg Tablet 1000 MG PO BID TAKES 2 (500 MG) TABLETS Montelukast Sodium (Montelukast Sodium) 10 Mg Tablet 10 MG PO HS TAB Oxycodone HCl/Acetaminophen (Oxycodone-Acetaminophen 10-325) 1 Each Tablet 1 TAB PO Q8H PRN PAIN #10 (This prescription has been renewed) Potassium Chloride (Potassium Chloride) 20 Meq Tab.er.prt 20 MEQ PO DAILY LAST FILLED 10/17/16 #30 TAB Tiotropium Metaline (Spiriva Respimat) 4 Gm Mist.inhal 2 PUFF INH DAILY EA Discontinued Medications: Doxycycline Hyclate (Doxycycline Hyclate) 100 Mg Capsule 100 MG PO Q12H FILLED 12/15/16 #20 FOR A 10 DAY THERAPY Prednisone (Prednisone) 20 Mg Tab 40 MG PO DAILY TAKES 2 (20 MG) TABLETS TAB Prednisone (Prednisone) 20 Mg Tab 20 MG PO HS TAB Patient Instructions Goal/Follow Up Appt: [facility] as scheduled 01/08/17 or sooner if needed Patient Instructions: Use home O2 continously Activity & Diet Discharge Diet: Low Sodium Diet, ADA Diet, Cardiac Diet Activity as Tolerated: Yes HAROLDO HERb 10, 2017 11:37
[2016-12-26 12:00] VITALS: BP 153/93
== END 2016-12-26 14:55 | disposition home or self-care (01) | DRG 189 ==
LOC: ICU 16:28 → 4TH 12-25 18:45
PROVIDERS: ADMIT Internal Medicine; ATTEND Internal Medicine
DX: J96.20 Acute and chronic respiratory failure, unspecified whether with hypoxia or hypercapnia (principal); J44.1 Chronic obstructive pulmonary disease with (acute) exacerbation; J44.0 Chronic obstructive pulmonary disease with (acute) lower respiratory infection; N17.9 Acute kidney failure, unspecified; I50.42 Chronic combined systolic (congestive) and diastolic (congestive) heart failure; I13.0 Hypertensive heart and chronic kidney disease with heart failure and stage 1 through stage 4 chronic kidney disease, or unspecified chronic kidney disease; I48.92 Unspecified atrial flutter; I42.9 Cardiomyopathy, unspecified; J22 Unspecified acute lower respiratory infection; I25.10 Atherosclerotic heart disease of native coronary artery without angina pectoris; Z95.1 Presence of aortocoronary bypass graft; E11.9 Type 2 diabetes mellitus without complications; N18.9 Chronic kidney disease, unspecified; I48.0 Paroxysmal atrial fibrillation; K21.9 Gastro-esophageal reflux disease without esophagitis; E78.00 Pure hypercholesterolemia, unspecified; F17.210 Nicotine dependence, cigarettes, uncomplicated; Z80.1 Family history of malignant neoplasm of trachea, bronchus and lung; I25.5 Ischemic cardiomyopathy; Z91.14 Patient's other noncompliance with medication regimen; G70.00 Myasthenia gravis without (acute) exacerbation; Z79.52 Long term (current) use of systemic steroids; R29.810 Facial weakness; I65.23 Occlusion and stenosis of bilateral carotid arteries; G47.33 Obstructive sleep apnea (adult) (pediatric); Z87.898 Personal history of other specified conditions
CPT/HCPCS: 36415; 71010; 80053; 81000; 82962; 83735; 83880; 84100; 84443; 84484; 85007; 85025; 85027; 87070; 87205; 94640; 94760

== ENCOUNTER 2016-12-28 10:08 | Inpatient (IN) | payer MEDICAID ==
[2016-12-28] VITALS (10 sets, daily range): BP systolic 92–154; BP diastolic 63–99
[~2016-12-28] VITALS: Ht 172.7 cm; Wt 102.7 kg
[~2016-12-28 10:08] MED LIST changes: +ATOR20TA66 PO; +BUME1TAB4 PO; +CARV12.53 PO; +DOXY100C2 PO; +NYST1000 PO; +OXYC-465 PO; +PRED10TA22 PO
--- OUTSIDE RECORDS SUMMARY | 2016-12-28 10:14 | XMS REPORT | Continuity of Care Document ---
Author Author [facility] Organization [facility] Address Unknown Phone Unavailable Care Team Providers Care Marine Architect Name Role Phone NATALIE MELVIN MD PCP Insurance Providers Payer Name Policy Number Subscriber Name Relationship [facility] [id number] Rigo Marcus 18 Self / Same As Patient Advance Directives Directive Response Recorded Date/Time Advance Directives Yes 09/17/16 5:41pm Health Care Power of Business Continuity Strategy Director No 09/17/16 5:41pm Organ Donor Yes [...] Mg 20 Mg Oral Daily 09/17/16 Tiotropium [facility] 4 Gm 2 Puff Inhalation Daily 09/17/16 [...] 1 Puff Inhalation Daily 07/22/16 Discontinued Umeclidinium [facility] 62.5 Mcg Blst.w.dev, 62.5 Mcg Inhalation Daily [...] - 99.5) 09/18/2016 8:30am Temperature (Calculated Celsius) 35.56566 degrees C (36.4 - 37.5) 09/18/2016 8:30am [...] 10.00 inches 09/17/2016 5:49pm Height (Calculated Centimeters) 177.891907 cm 09/17/2016 5:49pm Weight (Pounds) 250 pounds 09/18/2016 6:00am Weight (Ounces) 0.0 oz 09/17/2016 5:49pm Weight (Calculated Grams) 109728.094 gm 09/18/2016 6:00am Weight (Calculated Kilograms) 113.879085 kilograms 09/18/2016 6:00am Calculated BMI 34.7 09/17/2016 [...] SELECTED GROUPS OF HIGH RISK PATIENTS. [employer] CONSENSUS CONFERENCE ON [...] Completed 09/17/16 JULIUS ALCARAZ MD FACP [facility] CCDS Color Doppler echocardiography Active 09/18/16 MARISA POPE Encounters Encounter Location Arrival/Admit Date Discharge/Depart Date Attending Provider Discharged Inpatient [facility] 09/17/16 11:41am 11:23am ERNESTINE MOORE MD Recent Diagnosis Knee joint effusion Leukocytosis Orthopnea
--- NOTE | 2016-12-28 10:55 | ED Abdominal Pain ---
General Chief Complaint: Abdominal/GI Problems Stated Complaint: ABD PAIN, PNEUMONIA Source of Information: Patient Exam Limitations: No Limitations History of Present Illness Time Seen By Provider: 10:54 Initial Comments To ER from home with reports of abdominal pain and pneumonia. Patient was just discharged from this hospital yesterday following a course of COPD exacerbation/ CHF. He states that he does not feel any better today or worse today than he did yesterday. However he has abdominal pain that he is concerned about. No nausea or vomiting. Timing/Duration: 1-2 Days Severity/Quality: Moderate Location: Epigastric Radiation: No Radiation Associated Symptoms: No Nausea/Vomiting Allergies and Home Medications Allergies Coded Allergies: No Known Drug Allergies (Unverified , 09/23/13) Home Medications Albuterol Sulfate 2.5 Mg/3 Ml Vial.neb 2.5 MG NEB Q4H PRN PRN SHORTNESS OF BREATH (Reported) Aspirin 81 Mg Tablet.dr 81 MG PO DAILY (Reported) Atorvastatin Calcium 20 Mg Tablet 20 MG PO HS (Reported) Bumetanide 1 Mg Tablet 1 MG PO BID (Reported) Carvedilol 12.5 Mg Tablet 12.5 MG PO BID (Reported) Dabigatran Etexilate Mesylate 150 Mg Capsule 150 MG PO BID (Reported) Insulin Aspart 300 Units/3 Ml Solution 6 UNITS SC AC (Reported) Insulin Detemir 100 Unit/1 Ml Insuln.pen 18 UNITS SC BID (Reported) Metformin HCl 500 Mg Tablet 1,000 MG PO BID (Reported) TAKES 2 (500 MG) TABLETS Montelukast Sodium 10 Mg Tablet 10 MG PO HS (Reported) Nystatin 100,000 Unit/1 Ml Oral.susp #30 5 ML PO QIDACHS Prescribed by: HAROLDO HER on 12/26/16 1135 Oxycodone HCl/Acetaminophen 1 Each Tablet #10 1 TAB PO Q8H PRN PRN PAIN Prescribed by: HAROLDO HER on 12/26/16 1135 Potassium Chloride 20 Meq Tab.er.prt 20 MEQ PO DAILY (Reported) LAST FILLED 10/17/16 #30 Prednisone 10 Mg Tab.ds.pk #42 10 MG PO DAILY Take 6 tabs(60mg)daily,decrease by 1 tab(10mg)every other day. Prescribed by: HAROLDO HER on 12/26/16 1135 Tiotropium [place] 4 Gm Mist.inhal 2 PUFF INH DAILY (Reported) Review of Systems Constitutional: see HPI EENTM: No Symptoms Reported Respiratory: No Symptoms Reported Gastrointestinal: See HPI Abdomen Distended Abdominal Pain Genitourinary: No Symptoms Reported Musculoskeletal: no symptoms reported Skin: no symptoms reported Psychiatric/Neurological: No Symptoms Reported Endocrine: No Symptoms Reported Hematologic/Lymphatic: No Symptoms Reported Past Ukxzkcj-Jnfktb-Ekqovm Hx Patient Social History Type Used: Cigarettes Recent Hopitalizations: Yes Immunizations Up To Date Tetanus Booster (TDap): Unknown Date of Influenza Vaccine: Dec 24, 2016 Seasonal Allergies Seasonal Allergies: No Surgeries HX Surgeries: Yes (CATARACT, heart cath) Surgeries: CABG, Eye Surgery Respiratory Hx Respiratory Disorders: Yes (tobaccoism) Respiratory Disorders: COPD Cardiovascular Hx Cardiac Disorders: Yes (history of congestive heart failure) Cardiac Disorders: Atrial Fibrillation, High Cholesterol, Hypertension Neurological Hx Neurological Disorders: Yes (MYASTHENIS GRAVIS) Reproductive System Hx Reproductive Disorders: No Sexually Transmitted Disease: No HIV/AIDS: No Genitourinary Hx Genitourinary Disorders: Yes Genitourinary Disorders: Renal Failure Gastrointestinal Hx Gastrointestinal Disorders: Yes Gastrointestinal Disorders: Gastroesophageal Reflux Musculoskeletal Hx Musculoskeletal Disorders: Yes (CHRONIC NECK PAIN) Musculoskeletal Disorders: Chronic Back Pain, Gout Endocrine Hx Endocrine Disorders: Yes Endocrine Disorders: Diabetes, Non-Insulin dep HEENT HX ENT Disorders: Yes (CATARACT SURGERY) Loss of Vision: Denies Hearing Impairment: Denies Cancer Hx Cancer: No Psychosocial Hx Psychiatric Problems: No Integumentary HX Skin/Integumentary Disorder: No Blood Transfusions Hx Blood Disorders: No Family Medical History Family Medial History: Alzheimer's disease 19 MOTHER Diabetes mellitus 19 MOTHER FH: lung cancer 19 FATHER Hypertension 19 FATHER 19 MOTHER Physical Exam Vital Signs VS - Last 72 Hours, by Label 12/28/16 12/28/16 12/28/16 10:08 11:43 13:10 Temp 97.3 97.3 97.3 Pulse 140 140 Resp 24 24 B/P 97/76 97/76 Pulse Ox 95 95 O2 Delivery Room Air Capillary Refill : General Appearance: WD/WN obese other (chronically ill) HEENT: PERRL/EOMI normal ENT inspection Neck: non-tender full range of motion Respiratory: no respiratory distress no accessory muscle use wheezing Cardiovascular: no murmur tachycardia irregularly irregular other (EKG shows atrial fibrillation with rapid ventricular response rate of 146.) Gastrointestinal: normal bowel sounds soft Extremities: normal range of motion Neurologic/Psychiatric: alert normal mood/affect oriented x 3 Skin: normal color warm/dry Progress/Results/Core Measures Results/Orders Lab Results Laboratory Tests Test 12/28/16 11:00 12/28/16 12:05 Range/Units Alanine Aminotransferase (ALT/SGPT) 30 0-55 U/L Albumin 3.6 3.2-4.5 G/DL Alkaline Phosphatase 61 40-136 U/L Anion Gap 15 H 5-14 MMOL/L Aspartate Amino Transf (AST/SGOT) 25 5-34 U/L B-Type Natriuretic Peptide 193.2 H <100.0 PG/ML BUN/Creatinine Ratio 26 Basophils # (Auto) 0.0 0.0-0.1 10^3/uL Basophils (%) (Auto) 0 0-10 % Blood Urea Nitrogen 30 H 7-18 MG/DL Calcium Level 8.8 8.5-10.1 MG/DL Carbon Dioxide Level 28 21-32 MMOL/L Chloride Level 99 98-107 MMOL/L Creatinine 1.14 0.60-1.30 MG/DL Eosinophils # (Auto) 0.0 0.0-0.3 10^3/uL Eosinophils (%) (Auto) 0 0-10 % Estimat Glomerular Filtration Rate > 60 Glucose Level 111 H 70-105 MG/DL Hematocrit 43 40-54 % Hemoglobin 13.7 13.3-17.7 G/DL Lactic Acid Level 1.6 0.5-2.0 MMOL/L Lipase 39 8-78 U/L Lymphocytes # (Auto) 1.6 1.0-4.0 X 10^3 Lymphocytes (%) (Auto) 18 12-44 % Mean Corpuscular Hemoglobin 28 25-34 PG Mean Corpuscular Hemoglobin Concent 32 32-36 G/DL Mean Corpuscular Volume 87 80-99 FL Mean Platelet Volume 9.2 7.4-10.4 FL Monocytes # (Auto) 0.8 0.0-1.0 X 10^3 Monocytes (%) (Auto) 9 0-12 % Neutrophils # (Auto) 6.6 1.8-7.8 X 10^3 Neutrophils (%) (Auto) 73 42-75 % Platelet Count 196 130-400 10^3/uL Potassium Level 3.7 3.6-5.0 MMOL/L Red Blood Count 4.91 4.35-5.85 10^6/uL Red Cell Distribution Width 16.5 H 10.0-14.5 % Sodium Level 142 135-145 MMOL/L Total Bilirubin 0.8 0.1-1.0 MG/DL Total Protein 6.0 L 6.4-8.2 G/DL Troponin I < 0.30 <0.30 NG/ML White Blood Count 9.0 4.3-11.0 10^3/uL Urine Bacteria NEGATIVE /HPF Urine Bilirubin NEGATIVE NEGATIVE Urine Casts NONE /LPF Urine Clarity SLIGHTLY CLOUDY Urine Color YELLOW Urine Crystals NONE /LPF Urine Culture Indicated NO Urine Glucose (UA) NEGATIVE NEGATIVE Urine Ketones NEGATIVE NEGATIVE Urine Leukocyte Esterase NEGATIVE NEGATIVE Urine Mucus NEGATIVE /LPF Urine Nitrite NEGATIVE NEGATIVE Urine Protein NEGATIVE NEGATIVE Urine RBC 2-5 H /HPF Urine RBC (Auto) 4+ H NEGATIVE Urine Specific [place] 1.010 L 1.016-1.022 Urine Squamous Epithelial Cells RARE /HPF Urine Urobilinogen NORMAL NORMAL MG/DL Urine WBC NONE /HPF Urine pH 5 5-9 My Orders Orders-MICHOACANO FIORE CONVERTING SUPERVISOR Cbc With Automated Diff (12/28/16 10:35) Saline Lock/Iv-Start (12/28/16 10:35) Comprehensive Metabolic Panel (12/28/16 10:35) Lipase (12/28/16 10:35) Ua Culture If Indicated (12/28/16 10:35) Chest Pa/Lat (2 View) (12/28/16 10:35) BNP (12/28/16 10:36) Ekg Tracing (12/28/16 10:36) Troponin I (12/28/16 10:36) Morphine Injection (Morphine Injection (12/28/16 11:15) Ct Abdomen/Pelvis Wo (12/28/16 11:30) Diltiazem Injection (Cardizem Injection) (12/28/16 11:30) Furosemide Injection (Lasix Injection) (12/28/16 11:45) Diltiazem Injection (Cardizem Injection) (12/28/16 12:00) Blood Culture (12/28/16 12:50) Lactic Acid Analyzer (12/28/16 12:50) Cefepime Injection (Maxipime Injection) (12/28/16 13:00) Sodium Chloride (Ad... W/Diltiazem Drip (12/28/16 13:15) Medications Given in ED Current Medications Medications Dose Ordered Sig/Dino Route Start Time Stop Time Status Last Admin Dose Admin Cefepime HCl/ Sodium Chloride 50 ml @ 100 mls/hr ONCE ONCE IV 12/28/16 13:00 12/28/16 13:29 DC 12/28/16 13:10 100 MLS/HR Diltiazem HCl 10 mg ONCE ONCE IVP 12/28/16 11:30 12/28/16 11:31 DC 12/28/16 11:42 10 MG Diltiazem HCl 10 mg 10 mg ONCE ONCE IVP 12/28/16 12:00 12/28/16 12:01 DC 12/28/16 12:07 10 MG Furosemide 40 mg ONCE ONCE IVP 12/28/16 11:45 12/28/16 11:46 DC 12/28/16 11:42 40 MG Morphine Sulfate 6 mg ONCE ONCE IM 12/28/16 11:15 12/28/16 11:16 DC 12/28/16 11:43 6 MG Vital Signs/I&O Vital Sign - Last 12Hours 12/28/16 12/28/16 12/28/16 10:08 11:43 13:10 Temp 97.3 97.3 97.3 Pulse 140 140 Resp 24 24 B/P 97/76 97/76 Pulse Ox 95 95 O2 Delivery Room Air Diagnostic Imaging Diagonstic Imaging: Xray Plain Films/CT/US/NM/MRI: chest Comments NAME: RIGO MARCUS [facility] REC#: [id number] PT STATUS: REG ER : 1960 PHYSICIAN: MICHOACANO FIORE CONVERTING SUPERVISOR ADMIT DATE: 12/28/16/ER Draft Date of Exam:12/28/16 CHEST PA/LAT (2 VIEW) INDICATION: Worsening abdominal pain since yesterday. CHF. EXAMINATION: Two-view chest 12/28/2016 Comparison made with prior examination from 12/25/2016. FINDINGS: Cardio megaly noted. Pulmonary vasculature minimally prominent. Findings of edema seen throughout both lungs and stable from previous imaging. Due to patient body habitus evaluation for infiltrate is limited. However at least bibasal atelectasis is suspected. Small infiltrate difficult to exclude, correlate with symptoms. No effusions are seen. Sternotomy wires and mediastinal clips noted as well as epicardial leads present. IMPRESSION: Bibasal atelectasis versus infiltrate correlate with symptoms. Suspected mild pulmonary edema. Dictated on workstation # [id number] Dict: 12/28/16 1128 Trans: 12/28/16 1137 [facility] [id number] Interpreted by: RAMEZ QUINONEZ MD Electronically signed by: Departure Communication Time/Spoke to Admitting Phy: 13:[address] Fofana. We will admit the patient to ICU with cartilage consult. Time/Spoke to Consulting Physi: 13:15 Communication/Consulting Discussed with Dr. Ashley. He agrees to consult. Impression Impression: Primary Impression: Atrial fibrillation with rapid ventricular response Additional Impression: Bilateral pneumonia Disposition: ADMITTED INPATIENT Condition: Stable Decision to Admit Reason: Admit from ER (General) Decision to Admit/Date: Dec 28, 2016 Time/Decision to Admit Time: 12:49 Departure-Patient Inst. Referrals: NATALIE MELVIN MD (PCP/Family) Primary Care Physician MICHOACANO FIORE APRN Dec 28, 2016 10:55
[2016-12-28 11:08] LABS: BASOPHILS % (AUTO) 0 % (0-10); EOSINOPHILS % (AUTO) 0 % (0-10); LYMPHOCYTES # (AUTO) 1.6 X 10^3 (1.0-4.0); LYMPHOCYTES % (AUTO) 18 % (12-44); MEAN CORPUSCULAR HEMOGLOBIN 28 PG (25-34); MEAN CORPUSCULAR HGB CONC 32 G/DL (32-36); MEAN CORPUSCULAR VOLUME 87 FL (80-99); MEAN PLATELET VOLUME 9.2 FL (7.4-10.4); MONOCYTES # (AUTO) 0.8 X 10^3 (0.0-1.0); MONOCYTES % (AUTO) 9 % (0-12); NEUTROPHILS # (AUTO) 6.6 X 10^3 (1.8-7.8); NEUTROPHILS % (AUTO) 73 % (42-75); PLATELET COUNT 196 10^3/uL (130-400); RED BLOOD COUNT 4.91 10^6/uL (4.35-5.85); RED CELL DISTRIBUTION WIDTH 16.5 % (10.0-14.5)
[2016-12-28] MEDS ORDERED: morphine INJ 10 MG/ML 1ML (SYR OR VIAL) IM ONE (11:15)
[2016-12-28 11:28] LABS: ALANINE AMINOTRANSFERASE 30 U/L (0-55); ALBUMIN 3.6 G/DL (3.2-4.5); ANION GAP 15 MMOL/L (5-14); ASPARTATE AMINO TRANSFERASE 25 U/L (5-34); BILIRUBIN,TOTAL 0.8 MG/DL (0.1-1.0); BLOOD UREA NITROGEN 30 MG/DL (7-18); BUN/CREATININE RATIO 26; CALCIUM 8.8 MG/DL (8.5-10.1); CARBON DIOXIDE 28 MMOL/L (21-32); CHLORIDE 99 MMOL/L (98-107); CREATININE SERUM 1.14 MG/DL (0.60-1.30); GFR ESTIMATED > 60; GLUCOSE 111 MG/DL (70-105); LIPASE 39 U/L (8-78); POTASSIUM 3.7 MMOL/L (3.6-5.0); SODIUM 142 MMOL/L (135-145)
[2016-12-28] MEDS ORDERED: DILTIAZEM 25 MG/5 ML INJ (CARDIZEM) VIAL IVP ONE ×2 (11:30→12:00)
[2016-12-28 11:34] LABS: TROPONIN I < 0.30 NG/ML (<0.30)
--- NOTE | 2016-12-28 11:37 | Diagnostic Imaging Report ---
INDICATION: Worsening abdominal pain since yesterday. CHF. EXAMINATION: Two-view chest 12/28/2016 Comparison made with prior examination from 12/25/2016. FINDINGS: Cardio megaly noted. Pulmonary vasculature minimally prominent. Findings of edema seen throughout both lungs and stable from previous imaging. Due to patient body habitus evaluation for infiltrate is limited. However at least bibasal atelectasis is suspected. Small infiltrate difficult to exclude, correlate with symptoms. No effusions are seen. Sternotomy wires and mediastinal clips noted as well as epicardial leads present. IMPRESSION: Bibasal atelectasis versus infiltrate correlate with symptoms. Suspected mild pulmonary edema. Dictated by: Dictated on workstation # [id number]
[2016-12-28] MEDS ORDERED: FUROSEMIDE 40 MG/4 ML INJ (LASIX) IVP ONE (11:45)
[2016-12-28 12:15] LABS: BILIRUBIN,URINE NEGATIVE (NEGATIVE); KETONES,URINE NEGATIVE (NEGATIVE); LEUKOCYTE ESTERASE ,URINE NEGATIVE (NEGATIVE); NITRITE,URINE NEGATIVE (NEGATIVE); PH,URINE 5 (5-9); PROTEIN,URINE NEGATIVE (NEGATIVE); UROBILINOGEN,URINE NORMAL (NORMAL)
[2016-12-28 12:24] LABS: SQUAMOUS EPITHELIAL CELL,UR RARE /HPF
--- NOTE | 2016-12-28 12:47 | Diagnostic Imaging Report ---
PROCEDURE: CT abdomen and pelvis without contrast. TECHNIQUE: Multiple contiguous axial images were obtained through the abdomen and pelvis without the use of intravenous contrast. INDICATION: Pain all over the abdomen since Thursday. CT abdomen and pelvis without contrast 12/28/2016. COMPARISON: None. FINDINGS: Nonopacified abdominal viscera limited due to lack of IV contrast however, no gross acute abnormality appreciated within the liver or spleen. A tiny hypodensity in the spleen is too small to characterize but likely of no significance. The gallbladder is normal in appearance. The adrenal glands unremarkable. Pancreas unremarkable as well as mild fat stranding seen about both kidneys which could be a chronic process for this patient pyelonephritis could cause a similar appearance clinically correlate. There are no stones in either kidney with no hydronephrosis or ureteral stones. There is atherosclerotic disease along the aorta and its branches non-aneurysmal in appearance. The appendix is unremarkable. Diverticular disease is seen in the sigmoid colon and distal descending colon. No evidence for acute diverticulitis. No free air or free fluid seen in the abdomen nor pelvis. There is no lymphadenopathy. The visualized lung bases demonstrate scattered bilateral patchy airspace opacity suspicious for pneumonia with diffuse groundglass opacities and tiny nodularities also noted. No effusions noted. There is no acute osseous abnormality. Degenerative findings noted throughout the spine and hips. There is an anterior abdominal wall hernia which contains fat immediately adjacent to the hernia. Mild fat stranding in the sub-cutaneous soft tissues is noted. Correlate for any point tenderness that would suggest mild inflammation. IMPRESSION: 1. Findings within the lung bases likely due to pneumonia an atypical pneumonia is a possibility given the areas of nodularity and tree in bud type appearance, correlate with symptoms. Followup recommended to assure resolution. Incidental findings in the abdomen and pelvis with fat stranding about the kidneys likely chronic but please see above discussion and correlate with symptoms. There is an anterior abdominal wall hernia which contains fat immediately adjacent to the hernia. Mild fat stranding in the sub-cutaneous soft tissues is noted. Correlate for any point tenderness that would suggest mild inflammation. Dictated by: Dictated on workstation # [id number]
[2016-12-28] MEDS ORDERED: CEFEPIME INJECTION 2,000 MG in NS (IVPB) 50 ML IV ONE (13:00)
[2016-12-28] MEDS: DILTIAZEM DRIP 100 MG in SODIUM CHLORIDE (ADD-VANTAGE) 100 ML IV SCH ×2 (13:10→20:55)
--- NOTE | 2016-12-28 18:00 | History & Physicial (CHS) ---
HPI History of Present Illness: 56-year-old male presents to via [facility] shortness of breath and not feeling well. He was recently in the hospital and released for COPD exacerbation. Over the past 24 hours he has had increasing cough. He also does have nonspecific abdominal discomfort. He currently denies any fever. Source: patient Exam Limitations: no limitations Date seen by provider: Dec 28, 2016 Attending Physician Chepe Davis MD PCP Macho Watson MD Consult Date of Admission Dec 28, 2016 at 13:25 Home Medications Home Medications Reviewed patient Home Medication Reconciliation Form Allergies Coded Allergies: No Known Drug Allergies (Unverified , 09/23/13) FII-[id number]-Pxsuyv Hx Patient Social History Marrital Status: Alcohol Use: Denies Use Recreational Drug Use: No Smoking Status: Current Everyday Smoker Type Used: Cigarettes Recent Foreign Travel: No Contact w/other who traveled: No Recent Hopitalizations: Yes Recent Infectious Disease Expo: No Physical Abuse Screen: No Sexual Abuse: No Immunizations Up To Date Tetanus Booster (TDap): Unknown Date of Influenza Vaccine: Dec 24, 2016 Past Medical History Past Medical History 1. Myasthenia Gravis diagnosed in [address] Collins at [place] with left eye Ptosis, unknown stage or type 2. CHF chronic systolic and diastolic dysfunction with last EF 30% 07/31 at [place] 3. Chronic Atrial Fibrillation- on Pradaxa 4. Methamphetamine Use- denies IV use, THC use 5. Chronic Back Pain 6. COPD- with mild obstructive lung defect with improvement after bronchodilator 7. Tobaccoism 8. Hypertriglyceridemia 9. Diabetes Mellitus 10. hx gout 11. CAD - mod to severe 3 vessel disease Past Surgical History 1. Tonsillectomy as child 2. Bilateral Cataract surgery Family Medical History Family History: Alzheimer's disease 19 MOTHER Diabetes mellitus 19 MOTHER FH: lung cancer 19 FATHER Hypertension 19 FATHER 19 MOTHER Review of Systems (CHC) Constitutional: see HPI Reviewed Test Results Reviewed Test Results Lab Laboratory Tests Test 12/28/16 11:00 12/28/16 12:05 Range/Units Alanine Aminotransferase (ALT/SGPT) 30 0-55 U/L Albumin 3.6 3.2-4.5 G/DL Alkaline Phosphatase 61 40-136 U/L Anion Gap 15 H 5-14 MMOL/L Aspartate Amino Transf (AST/SGOT) 25 5-34 U/L B-Type Natriuretic Peptide 193.2 H <100.0 PG/ML BUN/Creatinine Ratio 26 Basophils # (Auto) 0.0 0.0-0.1 10^3/uL Basophils (%) (Auto) 0 0-10 % Blood Urea Nitrogen 30 H 7-18 MG/DL Calcium Level 8.8 8.5-10.1 MG/DL Carbon Dioxide Level 28 21-32 MMOL/L Chloride Level 99 98-107 MMOL/L Creatinine 1.14 0.60-1.30 MG/DL Eosinophils # (Auto) 0.0 0.0-0.3 10^3/uL Eosinophils (%) (Auto) 0 0-10 % Estimat Glomerular Filtration Rate > 60 Glucose Level 111 H 70-105 MG/DL Hematocrit 43 40-54 % Hemoglobin 13.7 13.3-17.7 G/DL Lactic Acid Level 1.6 0.5-2.0 MMOL/L Lipase 39 8-78 U/L Lymphocytes # (Auto) 1.6 1.0-4.0 X 10^3 Lymphocytes (%) (Auto) 18 12-44 % Mean Corpuscular Hemoglobin 28 25-34 PG Mean Corpuscular Hemoglobin Concent 32 32-36 G/DL Mean Corpuscular Volume 87 80-99 FL Mean Platelet Volume 9.2 7.4-10.4 FL Monocytes # (Auto) 0.8 0.0-1.0 X 10^3 Monocytes (%) (Auto) 9 0-12 % Neutrophils # (Auto) 6.6 1.8-7.8 X 10^3 Neutrophils (%) (Auto) 73 42-75 % Platelet Count 196 130-400 10^3/uL Potassium Level 3.7 3.6-5.0 MMOL/L Red Blood Count 4.91 4.35-5.85 10^6/uL Red Cell Distribution Width 16.5 H 10.0-14.5 % Sodium Level 142 135-145 MMOL/L Total Bilirubin 0.8 0.1-1.0 MG/DL Total Protein 6.0 L 6.4-8.2 G/DL Troponin I < 0.30 <0.30 NG/ML White Blood Count 9.0 4.3-11.0 10^3/uL Urine Bacteria NEGATIVE /HPF Urine Bilirubin NEGATIVE NEGATIVE Urine Casts NONE /LPF Urine Clarity SLIGHTLY CLOUDY Urine Color YELLOW Urine Crystals NONE /LPF Urine Culture Indicated NO Urine Glucose (UA) NEGATIVE NEGATIVE Urine Ketones NEGATIVE NEGATIVE Urine Leukocyte Esterase NEGATIVE NEGATIVE Urine Mucus NEGATIVE /LPF Urine Nitrite NEGATIVE NEGATIVE Urine Protein NEGATIVE NEGATIVE Urine RBC 2-5 H /HPF Urine RBC (Auto) 4+ H NEGATIVE Urine Specific [place] 1.010 L 1.016-1.022 Urine Squamous Epithelial Cells RARE /HPF Urine Urobilinogen NORMAL NORMAL MG/DL Urine WBC NONE /HPF Urine pH 5 5-9 Radiology NAME: RIGO MARCUS [facility] REC#: [id number] PT STATUS: ADM IN : 1960 PHYSICIAN: MICHOACANO FIORE APRN ADMIT DATE: 12/28/16/ICU Signed Date of Exam: 12/28/16 CHEST PA/LAT (2 VIEW) INDICATION: Worsening abdominal pain since yesterday. CHF. EXAMINATION: Two-view chest 12/28/2016 Comparison made with prior examination from 12/25/2016. FINDINGS: Cardio megaly noted. Pulmonary vasculature minimally prominent. Findings of edema seen throughout both lungs and stable from previous imaging. Due to patient body habitus evaluation for infiltrate is limited. However at least bibasal atelectasis is suspected. Small infiltrate difficult to exclude, correlate with symptoms. No effusions are seen. Sternotomy wires and mediastinal clips noted as well as epicardial leads present. IMPRESSION: Bibasal atelectasis versus infiltrate correlate with symptoms. Suspected mild pulmonary edema. Dictated by: Dictated on workstation # [id number] Dict: 12/28/16 1128 Trans: 12/28/16 1729 [facility] [id number] Interpreted by: RAMEZ QUINONEZ MD Electronically signed by:RAMEZ QUINONEZ MD 12/28/16 1739 Physical Exam-([facility]) Physical Exam Vital Signs VS - Last 72 Hours, by Label 12/28/16 12/28/16 12/28/16 12/28/16 10:08 11:43 13:10 13:55 Temp 97.3 97.3 97.3 Pulse 140 140 140 Resp 24 24 22 B/P 97/76 97/76 Pulse Ox 95 95 94 O2 Delivery Room Air O2 Flow Rate 2 12/28/16 12/28/16 12/28/16 12/28/16 14:25 15:20 16:00 16:12 Pulse 129 B/P 151/94 Pulse Ox 94 91 91 O2 Flow Rate 3.00 3.00 12/28/16 12/28/16 12/28/16 16:16 16:26 17:45 Pulse 126 120 Resp 20 20 B/P 108/70 154/84 Pulse Ox 91 94 O2 Flow Rate 3.00 Capillary Refill : Less Than 3 Seconds General Appearance: no apparent distress (in ICU) Neck: full range of motion supple Respiratory: crackles (scattered throughout. no labored breathing) Cardiovascular: regular rate, rhythm (with occasional ectopy) Gastrointestinal: soft (and ithout guarding or rebound tenderness.) Rectal: deferred Extremities: other (he does have erythematous lesions on L anterior leg) Skin: warm/dry Assessment/Plan Assessment/Plan Admission Dx 1. Bilateral by basilar infiltratesmost likely pneumonia. Also in the differential is atelectasis 2. Atrial tachycardia with a history chronic atrial fibrillation 3. Nonspecific abdominal pain 4 Congestive heart failure - history of 5. COPD-history of 6. Hypertriglyceridemia 7. Diabetes Mellitus Plan 1. Bilateral by basilar infiltratesmost likely pneumonia. Also in the differential is atelectasis -Patient to be admitted for IV cefepime -blood culture is pending 2. Atrial tachycardia with a history chronic atrial fibrillation -He was initiated on Cardizem drip in the ED. -cardiology consultation 3. Nonspecific abdominal pain -Continue to monitor 4 Congestive heart failure - history of -continue diuretic 5. COPD-history of -continue Spiriva and albuterol treatment 6. Hypertriglyceridemia -continue statin 7. Diabetes Mellitus -he will be maintained on home insulin regimen DVT prophlaxis--SCDs Diagnosis/Problems: Clinical Quality Measures DVT/VTE Risk/Contraindication: Risk Factor Score Per Nursin RFS Level Per Nursing on Admit: 3=High CHEPE ADVIS MD Dec 28, 2016 18:00
[2016-12-28] MEDS ORDERED: oxyCODONE/APAP 5/325MG (PERCOCET 5) TABLET ONE (19:49)
[2016-12-28] MEDS: oxyCODONE/APAP 10/325MG (PERCOCET 10) TABLET PO PRN (19:57)
[2016-12-28] MEDS ORDERED: inSUlin DETERMIR 1 UNIT/0.01 ML (LEVEMIR) CHARGE PER UNIT SQ ONE (20:28)
[2016-12-28] MEDS: CARVEDILOL 12.5 MG (COREG) TABLET PO SCH (20:35)
[2016-12-28] MEDS: ATORVASTATIN 20 MG (LIPITOR) TABLET PO SCH (20:35)
[2016-12-28] MEDS: DABIGATRAN 150 MG (PRADAXA) CAPSULE PO SCH (20:35)
[2016-12-28] MEDS: BUMETANIDE 1 MG (BUMEX) TAB PO SCH (20:35)
[2016-12-28] MEDS: MONTELUKAST 10 MG (SINGULAIR) TAB PO SCH (20:36)
[2016-12-28] MEDS: metFORMIN 500 MG (GLUCOPHAGE) TAB PO SCH (20:36)
[2016-12-28] MEDS ORDERED: NON-FORMULARY MEDICATION 1 EA EA (Insulin Detemir (Levemir Flextouch) 18 UNITS) SC SCH (21:00)
[2016-12-28] MEDS: NS IV 1000 ML 1,000 ML IV SCH (23:26)
[2016-12-29] VITALS (20 sets, daily range): BP systolic 99–126; BP diastolic 67–116
[2016-12-29 04:30] LABS: BASOPHILS % (AUTO) 1 % (0-10); EOSINOPHILS # (AUTO) 0.1 10^3/uL (0.0-0.3); EOSINOPHILS % (AUTO) 1 % (0-10); LYMPHOCYTES # (AUTO) 1.8 X 10^3 (1.0-4.0); LYMPHOCYTES % (AUTO) 21 % (12-44); MEAN CORPUSCULAR HEMOGLOBIN 27 PG (25-34); MEAN CORPUSCULAR HGB CONC 31 G/DL (32-36); MEAN CORPUSCULAR VOLUME 87 FL (80-99); MEAN PLATELET VOLUME 9.5 FL (7.4-10.4); MONOCYTES # (AUTO) 0.7 X 10^3 (0.0-1.0); MONOCYTES % (AUTO) 8 % (0-12); NEUTROPHILS # (AUTO) 5.9 X 10^3 (1.8-7.8); NEUTROPHILS % (AUTO) 70 % (42-75); PLATELET COUNT 195 10^3/uL (130-400); RED BLOOD COUNT 4.44 10^6/uL (4.35-5.85); RED CELL DISTRIBUTION WIDTH 16.4 % (10.0-14.5); WHITE BLOOD COUNT 8.5 10^3/uL (4.3-11.0)
[2016-12-29 04:49] LABS: ANION GAP 13 MMOL/L (5-14); BLOOD UREA NITROGEN 29 MG/DL (7-18); BUN/CREATININE RATIO 26; CALCIUM 8.1 MG/DL (8.5-10.1); CARBON DIOXIDE 29 MMOL/L (21-32); CHLORIDE 100 MMOL/L (98-107); GFR ESTIMATED > 60; GLUCOSE 108 MG/DL (70-105); MAGNESIUM 1.8 MG/DL (1.8-2.4); PHOSPHORUS 3.1 MG/DL (2.3-4.7); POTASSIUM 3.4 MMOL/L (3.6-5.0); SODIUM 142 MMOL/L (135-145)
[2016-12-29] MEDS ORDERED: NON-FORMULARY MEDICATION 1 EA EA (Insulin Aspart (Novolog Flexpen) 6 UNITS) SC SCH (06:00)
[2016-12-29] MEDS: POTASSIUM CL 10MEQ/50ML IVPB 50 ML IV SCH (06:00)
[2016-12-29] MEDS: KCL 20 MEQ TAB (K-DUR) PO SCH ×2 (06:00→22:20)
[2016-12-29] MEDS ORDERED: KCL 20 MEQ TAB (K-DUR) PO ONE (06:00)
[2016-12-29] MEDS: MAGNESIUM 1 GM/100 ML IVPB 100 ML IV SCH (06:00)
[2016-12-29] MEDS: inSUlin ASPART (NovoLOG) 1 UNIT/0.01 ML (CHARGE PER UNIT) SC SCH ×3 (06:37→19:33)
[2016-12-29] MEDS: oxyCODONE/APAP 10/325MG (PERCOCET 10) TABLET PO PRN ×2 (06:40→16:28)
[2016-12-29] MEDS: metFORMIN 500 MG (GLUCOPHAGE) TAB PO SCH ×2 (08:31→22:18)
[2016-12-29] MEDS: DABIGATRAN 150 MG (PRADAXA) CAPSULE PO SCH ×2 (08:31→22:18)
[2016-12-29] MEDS: CARVEDILOL 12.5 MG (COREG) TABLET PO SCH ×2 (08:31→22:18)
[2016-12-29] MEDS: BUMETANIDE 1 MG (BUMEX) TAB PO SCH (08:31)
[2016-12-29] MEDS: ASPIRIN E.C. 81 MG (ECOTRIN) TAB PO SCH (08:32)
[2016-12-29] MEDS: inSUlin DETERMIR 1 UNIT/0.01 ML (LEVEMIR) CHARGE PER UNIT SQ SCH ×2 (08:32→22:23)
[2016-12-29] MEDS ORDERED: CATHETER FLUSH 10 ML SYR IV PRN (08:45)
--- NOTE | 2016-12-29 08:57 | Consultation-Cardiology ---
HPI-Cardiology Cardiology Consultation: Date of Consultation 12/29/16 Date of Admission 12/28/16 Attending Physician Tucker Fofana MD Admitting Physician Macho Watson MD Consulting Physician JULIUS ALCARAZ MD, FACP, FACC, FSCAI, CCDS HPI: Chief Complaint: Shortness of breath 56 yo man who was admitted to Dr Her a few days ago with pneumonia/resp tract infection, readmitted with increasing shortness of breath and a productive cough (tenacious, yellowish sputum) and gen malaise and intermittent feverish feeling. Denies cp or palp or syncope. Notes more leg swelling than usual. Denies focal weakness Review of Systems-Cardiology Review of Systems Constitutional: malaise tirednessNo weight loss, No weight gain Eyes: No vision change Ears/Nose/Throat: As described under HPINo ear discharge, No nasal drainage, No recent hearing loss Respiratory: As described under HPI Cardiovascular: As described under HPI Gastrointestinal: No constipation, No diarrhea, No nausea Genitourinary: No dysuria, No hematuria, No urine frequency changes Musculoskeletal: back pain (chronic) Skin: rash ulcerations (A few areas of fluid-filled blisters leading to ulcerations on the anterior aspect of the L leg) Psychiatric/Neurological: No focal weakness, No seizure, No syncope Hematologic: No bleeding abnormalities NHR-Ubdeyr-Trlvsu Hx Patient Social History Marrital Status: Alcohol Use: Denies Use Recreational Drug Use: No Smoking Status: Current Everyday Smoker Type Used: Cigarettes Recent Foreign Travel: No Recent Infectious Disease Expo: No Physical Abuse Screen: No Sexual Abuse: No Immunizations Up To Date Tetanus Booster (TDap): Unknown Date of Influenza Vaccine: Dec 24, 2016 Past Medical History PMH As described under Assessment. Family Medical History Family Medical History: He reports no family h/o CAD. He reports his father had lung cancer. Family History: Alzheimer's disease 19 MOTHER Diabetes mellitus 19 MOTHER FH: lung cancer 19 FATHER Hypertension 19 FATHER 19 MOTHER Allergies and Home Medications Allergies Coded Allergies: No Known Drug Allergies (Unverified , 09/23/13) Home Medications Albuterol Sulfate 2.5 Mg/3 Ml Vial.neb 2.5 MG NEB Q4H PRN PRN SHORTNESS OF BREATH (Reported) Aspirin 81 Mg Tablet.dr 81 MG PO DAILY (Reported) Atorvastatin Calcium 20 Mg Tablet 20 MG PO HS (Reported) Bumetanide 1 Mg Tablet 1 MG PO BID (Reported) Carvedilol 12.5 Mg Tablet 12.5 MG PO BID (Reported) Dabigatran Etexilate Mesylate 150 Mg Capsule 150 MG PO BID (Reported) Insulin Aspart 300 Units/3 Ml Solution 6 UNITS SC AC (Reported) Insulin Detemir 100 Unit/1 Ml Insuln.pen 18 UNITS SC BID (Reported) Metformin HCl 500 Mg Tablet 1,000 MG PO BID (Reported) TAKES 2 (500 MG) TABLETS Montelukast Sodium 10 Mg Tablet 10 MG PO HS (Reported) Nystatin 100,000 Unit/1 Ml Oral.susp #30 5 ML PO QIDACHS Prescribed by: HAROLDO HER on 12/26/16 1135 Oxycodone HCl/Acetaminophen 1 Each Tablet #10 1 TAB PO Q8H PRN PRN PAIN Prescribed by: HAROLDO HER on 12/26/16 1135 Potassium Chloride 20 Meq Tab.er.prt 20 MEQ PO DAILY (Reported) LAST FILLED 10/17/16 #30 Prednisone 10 Mg Tab.ds.pk #42 10 MG PO DAILY Take 6 tabs(60mg)daily,decrease by 1 tab(10mg)every other day. Prescribed by: HAROLDO HER on 12/26/16 1135 Tiotropium [place] 4 Gm Mist.inhal 2 PUFF INH DAILY (Reported) Physical Exam-Cardiology Physical Exam Vital Signs/I&O Vital Sign - Last 12Hours 12/28/16 12/28/16 12/28/16 12/28/16 20:55 21:00 22:00 23:00 Pulse 100 114 84 85 Resp 25 17 16 11 B/P 159/90 114/85 106/63 92/64 Pulse Ox 91 91 91 92 O2 Delivery Nasal Cannula Nasal Cannula Nasal Cannula O2 Flow Rate 3.00 3.00 3.00 3.00 12/29/16 12/29/16 12/29/16 12/29/16 00:00 00:00 01:00 01:00 Temp 97.6 Pulse 69 80 80 Resp 15 14 B/P 122/82 119/95 Pulse Ox 93 93 91 O2 Delivery Nasal Cannula Nasal Cannula O2 Flow Rate 3.00 3.00 3.00 12/29/16 12/29/16 12/29/16 12/29/16 02:00 03:00 04:00 04:00 Temp 96.4 Pulse 95 73 84 Resp 16 21 15 B/P 110/88 108/70 117/90 Pulse Ox 88 91 89 91 O2 Delivery Nasal Cannula Nasal Cannula Nasal Cannula O2 Flow Rate 3.00 3.00 3.00 3.00 12/29/16 12/29/16 12/29/16 12/29/16 05:00 06:00 07:10 07:22 Temp 96.4 Pulse 82 102 Resp 17 22 B/P 106/80 105/75 Pulse Ox 93 90 94 O2 Delivery Nasal Cannula Nasal Cannula O2 Flow Rate 3.00 3.00 3.00 Intake and Output 12/29/16 00:00 Intake Total 670 ml Output Total 600 ml Balance 70 ml Capillary Refill : Less Than 3 Seconds Constitutional: AAO x 3 well-developed well-nourished HEENT: hearing is well preservedNo xanthelasmas are seen Neck: carotid pulses are 2 + bilaterally with good upstrokes Respiratory: No accessory muscle use, other (Diminished air entry on both lung bases with dullness to percussion, more so on the L side) Cardiovascular: irregularly irregular S1 and S2 systolic murmur (faint TINY at cardiac base) Gastrointestinal: No tender, No guarding, No rebound, audible bowel sounds Extremities: No clubbing, No cyanosis, laceration (approx 1.cm superficial ulceration the mid-[place] on the L (clean base); mild surrounding erythema) significant edema Neurologic/Psychiatric: oriented x 3 grossly intact power is 5/5 both on sides Skin: No rash, ulcerations (see under extremity exam) Data Review Labs Laboratory Tests 12/28/16 11:00: Alanine Aminotransferase (ALT/SGPT) 30, Albumin 3.6, Alkaline Phosphatase 61, Anion Gap 15H, Aspartate Amino Transf (AST/SGOT) 25, B-Type Natriuretic Peptide 193.2H, BUN/Creatinine Ratio 26, Basophils # (Auto) 0.0, Basophils (%) (Auto) 0 , Blood Urea Nitrogen 30H, Calcium Level 8.8, Carbon Dioxide Level 28, Chloride Level 99, Creatinine 1.14, Eosinophils # (Auto) 0.0, Eosinophils (%) (Auto) 0, Estimat Glomerular Filtration Rate > 60, Glucose Level 111H, Hematocrit 43, Hemoglobin 13.7, Lactic Acid Level 1.6, Lipase 39, Lymphocytes # (Auto) 1.6, Lymphocytes (%) (Auto) 18, Mean Corpuscular Hemoglobin 28, Mean Corpuscular Hemoglobin Concent 32, Mean Corpuscular Volume 87, Mean Platelet Volume 9.2, Monocytes # (Auto) 0.8, Monocytes (%) (Auto) 9, Neutrophils # (Auto) 6.6, Neutrophils (%) (Auto) 73, Platelet Count 196, Potassium Level 3.7, Red Blood Count 4.91, Red Cell Distribution Width 16.5H, Sodium Level 142, Total Bilirubin 0.8, Total Protein 6.0L, Troponin I < 0.30, White Blood Count 9.0 12/28/16 12:05: Urine Bacteria NEGATIVE, Urine Bilirubin NEGATIVE, Urine Casts NONE, Urine Clarity SLIGHTLY CLOUDY, Urine Color YELLOW, Urine Crystals NONE, Urine Culture Indicated NO, Urine Glucose (UA) NEGATIVE, Urine Ketones NEGATIVE, Urine Leukocyte Esterase NEGATIVE, Urine Mucus NEGATIVE, Urine Nitrite NEGATIVE, Urine Protein NEGATIVE, Urine RBC 2-5H, Urine RBC (Auto) 4+H, Urine Specific [place] 1.010L, Urine Squamous Epithelial Cells RARE, Urine Urobilinogen NORMAL , Urine WBC NONE, Urine pH 5 12/28/16 20:33: Glucometer 205H 12/29/16 03:55: Anion Gap 13, BUN/Creatinine Ratio 26, Basophils # (Auto) 0.0, Basophils (%) ( Auto) 1, Blood Urea Nitrogen 29H, Calcium Level 8.1L, Carbon Dioxide Level 29, Chloride Level 100, Creatinine 1.10, Eosinophils # (Auto) 0.1, Eosinophils (%) ( Auto) 1, Estimat Glomerular Filtration Rate > 60, Glucose Level 108H, Hematocrit 39L, Hemoglobin 12.1L, Lymphocytes # (Auto) 1.8, Lymphocytes (%) ( Auto) 21, Mean Corpuscular Hemoglobin 27, Mean Corpuscular Hemoglobin Concent 31L, Mean Corpuscular Volume 87, Mean Platelet Volume 9.5, Monocytes # (Auto) 0.7, Monocytes (%) (Auto) 8, Neutrophils # (Auto) 5.9, Neutrophils (%) (Auto) 70 , Platelet Count 195, Potassium Level 3.4L, Red Blood Count 4.44, Red Cell Distribution Width 16.4H, Sodium Level 142, White Blood Count 8.5, Magnesium Level 1.8, Phosphorus Level 3.1 Laboratory Tests 12/28/16 11:00 12/29/16 03:55 A/P-Cardiology Assessment/Admission Diagnosis Acute exac of COPD due to bilateral pneumonia (?atypical pneumonia) CABG 3 vessel, GUZMAN to LAD, reverse saphenous vein graft to RPDA, reverse saphenous vein graft to OM1. Kaylen-atrial Farley MAZE by Dr. Raman on 08-26-16 CAD and cardiomyopathy. MPI of 01/22/16 showed ischemic cm; apical infarction with only minimal periinfarct ischemia; LVEF 31%. Subsequent cardiac cath of April 29, 2016 showed modately severe MVD, including the left main; LVEF 50%; elevated LVEDP; no significant MR. Chronic systolic and diastolic CHF Intermittent noncompliance with meds Paroxysmal A-fib/flutter Pradaxa for stroke prophylaxis HTN Echocardiogram from July 2015 at [facility] by Dr. Farley showed CM with an LVEF of 30% and diastolic dysfunction. Echocardiogram of 10-23-16 technically difficult study. LVEF 55-60%. Mild MR and TR. No evidence of significant valvular stenosis. PASP estimated to be approx 50mmHg. Mild diastolic dysfunction of LV DM Myasthenia gravis - chronic steroid therapy H/o chronic left eye droop/closure following cataract surgery in July 2015 COPD Tobaccoism - / PPD - cessation advised Methamphetamine abuse - cessation advised Atherosclerotic plaque within the bilateral internal carotid arteries contributing to less than 50% stenosis per carotid u/s of 12-25-15 Susptected KILLIAN Chornic mild transaminase elevation, present even before statin therapy Discussion and Recomendations * Treatment of pneumonia and COPD is with the Medical Service * Replenish lytes * Treat heart failure with diuretic * Monitor labs close * Risk factor modification discussed with him and questions answered Clinical Quality Measures DVT/VTE Risk/Contraindication: Risk Factor Score Per Nursin RFS Level Per Nursing on Admit: 3=High JULIUS ALCARAZ MD FACP FAC CCDS Dec 29, 2016 08:57
[2016-12-29] MEDS ORDERED: NON-FORMULARY MEDICATION 1 EA EA (Tiotropium Bromide (Spiriva Respimat) 2 PUFF) INH SCH (09:00)
[2016-12-29] MEDS ORDERED: KCL 20 MEQ TAB (K-DUR) PO SCH (09:00)
--- NOTE | 2016-12-29 09:11 | Diagnostic Imaging Report ---
INDICATION: Shortness of breath. COMPARISON: 12/28/2016. FINDINGS: The heart size is enlarged. The sternal wires are midline. Bilateral infiltrates in the left base most notably the mid to lower lung on the right are noted, more conspicuous on today's exam; however, this may be reflective of improved technique. IMPRESSION: Bilateral infiltrates, greater on the right, and cardiomegaly are better visualized at this exam; however, this may be merely on a technical basis. Dictated by: Dictated on workstation # [id number]
[2016-12-29] MEDS: NS IV 1000 ML 1,000 ML IV SCH (09:20)
[2016-12-29] MEDS ORDERED: FUROSEMIDE 40 MG/4 ML INJ (LASIX) IVP NR (09:27)
[2016-12-29] MEDS ORDERED: LEVOFLOXACIN 750 MG/150 ML IV 150 ML IV SCH (11:00)
[2016-12-29] MEDS ORDERED: PHARMACY TO DOSE IV SCH (11:00)
--- NOTE | 2016-12-29 11:00 | Progress Note (SOAP) ---
Subjective Subjective/Events-last exam Afebrile, no acute events. This morning he states he feels somewhat better and his abdominal pain is improved. Date seen by provider: Dec 29, 2016 Time seen by provider: 09:15 Objective Exam Last Set of Vital Signs Vital Signs Date Time Temp Pulse Resp B/P Pulse Ox O2 Delivery O2 Flow Rate FiO2 12/29/16 10:24 90 3.00 12/29/16 07:10 96.4 12/29/16 07:00 90 12/29/16 06:00 22 105/75 Nasal Cannula Capillary Refill : Less Than 3 Seconds I&O Bad tableGeneral: Alert, No Acute Distress Lungs: Other (rales throughout, greater at bases) Heart: Other (irregular rhythm, regular rate) Abdomen: Normal Bowel Sounds Extremities: Other (1+ pitting edema) Skin: Other (venous stasis dermatitis and ulcer on legs) Neuro: Normal Speech Psych/Mental Status: Mental Status NL Results/Procedures Lab Laboratory Tests 12/28/16 11:00: Alanine Aminotransferase (ALT/SGPT) 30, Albumin 3.6, Alkaline Phosphatase 61, Anion Gap 15H, Aspartate Amino Transf (AST/SGOT) 25, B-Type Natriuretic Peptide 193.2H, BUN/Creatinine Ratio 26, Basophils # (Auto) 0.0, Basophils (%) (Auto) 0 , Blood Urea Nitrogen 30H, Calcium Level 8.8, Carbon Dioxide Level 28, Chloride Level 99, Creatinine 1.14, Eosinophils # (Auto) 0.0, Eosinophils (%) (Auto) 0, Estimat Glomerular Filtration Rate > 60, Glucose Level 111H, Hematocrit 43, Hemoglobin 13.7, Lactic Acid Level 1.6, Lipase 39, Lymphocytes # (Auto) 1.6, Lymphocytes (%) (Auto) 18, Mean Corpuscular Hemoglobin 28, Mean Corpuscular Hemoglobin Concent 32, Mean Corpuscular Volume 87, Mean Platelet Volume 9.2, Monocytes # (Auto) 0.8, Monocytes (%) (Auto) 9, Neutrophils # (Auto) 6.6, Neutrophils (%) (Auto) 73, Platelet Count 196, Potassium Level 3.7, Red Blood Count 4.91, Red Cell Distribution Width 16.5H, Sodium Level 142, Total Bilirubin 0.8, Total Protein 6.0L, Troponin I < 0.30, White Blood Count 9.0 12/28/16 12:05: Urine Bacteria NEGATIVE, Urine Bilirubin NEGATIVE, Urine Casts NONE, Urine Clarity SLIGHTLY CLOUDY, Urine Color YELLOW, Urine Crystals NONE, Urine Culture Indicated NO, Urine Glucose (UA) NEGATIVE, Urine Ketones NEGATIVE, Urine Leukocyte Esterase NEGATIVE, Urine Mucus NEGATIVE, Urine Nitrite NEGATIVE, Urine Protein NEGATIVE, Urine RBC 2-5H, Urine RBC (Auto) 4+H, Urine Specific [place] 1.010L, Urine Squamous Epithelial Cells RARE, Urine Urobilinogen NORMAL , Urine WBC NONE, Urine pH 5 12/28/16 20:33: Glucometer 205H 12/29/16 03:55: Anion Gap 13, BUN/Creatinine Ratio 26, Basophils # (Auto) 0.0, Basophils (%) ( Auto) 1, Blood Urea Nitrogen 29H, Calcium Level 8.1L, Carbon Dioxide Level 29, Chloride Level 100, Creatinine 1.10, Eosinophils # (Auto) 0.1, Eosinophils (%) ( Auto) 1, Estimat Glomerular Filtration Rate > 60, Glucose Level 108H, Hematocrit 39L, Hemoglobin 12.1L, Lymphocytes # (Auto) 1.8, Lymphocytes (%) ( Auto) 21, Mean Corpuscular Hemoglobin 27, Mean Corpuscular Hemoglobin Concent 31L, Mean Corpuscular Volume 87, Mean Platelet Volume 9.5, Monocytes # (Auto) 0.7, Monocytes (%) (Auto) 8, Neutrophils # (Auto) 5.9, Neutrophils (%) (Auto) 70 , Platelet Count 195, Potassium Level 3.4L, Red Blood Count 4.44, Red Cell Distribution Width 16.4H, Sodium Level 142, White Blood Count 8.5, Magnesium Level 1.8, Phosphorus Level 3.1 Radiology NAME: RIGO MARCUS [facility] REC#: [id number] PT STATUS: ADM IN : 1960 PHYSICIAN: MICHOACANO FIORE APRN ADMIT DATE: 12/28/16/ICU Signed Date of Exam: 12/28/16 CHEST PA/LAT (2 VIEW) INDICATION: Worsening abdominal pain since yesterday. CHF. EXAMINATION: Two-view chest 12/28/2016 Comparison made with prior examination from 12/25/2016. FINDINGS: Cardio megaly noted. Pulmonary vasculature minimally prominent. Findings of edema seen throughout both lungs and stable from previous imaging. Due to patient body habitus evaluation for infiltrate is limited. However at least bibasal atelectasis is suspected. Small infiltrate difficult to exclude, correlate with symptoms. No effusions are seen. Sternotomy wires and mediastinal clips noted as well as epicardial leads present. IMPRESSION: Bibasal atelectasis versus infiltrate correlate with symptoms. Suspected mild pulmonary edema. Dictated by: Dictated on workstation # [id number] Dict: 12/28/16 1128 Trans: 12/28/16 1729 [facility] [id number] Interpreted by: RAMEZ QUINONEZ MD Electronically signed by:RAMEZ QUINONEZ MD 12/28/16 1732 Assessment/Plan Assessment/Plan Admission Dx 1. Bilateral by basilar infiltratesmost likely pneumonia. Also in the differential is atelectasis 2. Atrial tachycardia with a history chronic atrial fibrillation 3. Nonspecific abdominal pain 4 Congestive heart failure - history of 5. COPD-history of 6. Hypertriglyceridemia 7. Diabetes Mellitus Plan 1. Bilateral by basilar infiltratesmost likely pneumonia. Also in the differential is atelectasis -Patient to be admitted for IV cefepime -blood culture is pending 12/29- due to recent hospitalization will treat for HAP, vanc, zosyn and cefepime. Clinically improving, continue to monitor. 2. Atrial tachycardia with a history chronic atrial fibrillation -He was initiated on Cardizem drip in the ED. -cardiology consultation 3. Nonspecific abdominal pain -Continue to monitor -CT abdomen with no significant pathology 4 Congestive heart failure - history of -continue diuretic and treatment per Cardiology 5. COPD-history of -RT, MAT protocol -Continue home inhaler 6. Hypertriglyceridemia -continue statin 7. Diabetes Mellitus -he will be maintained on home insulin regimen DVT prophlaxis--SCDs, on dabigatrin as home med- continued Disp- discussed his wishes with patient this am (12/29) and he stated he does not want to be intubated or have chest compressions or cardioversion if he should become more seriously ill. Will change code status to DNR per his request. Diagnosis/Problems: Clinical Quality Measures DVT/VTE Risk/Contraindication: Risk Factor Score Per Nursin RFS Level Per Nursing on Admit: 3=High ALYSSA BROWN MD Dec 29, 2016 11:00
[2016-12-29] MEDS ORDERED: VANCOMYCIN 2000 MG/NS 500 ML IVPB IV NR ×2 (11:07)
--- NOTE | 2016-12-29 11:11 | Pulmonary Consultation ---
History of Present Illness History of Present Illness Date of Consultation 12/29/16 11:05 Date of Admission History of Present Illness 56yo with hx of COPD, cellulitis, and recent hospitalization. pt was readmitted secondary to worsening SOB and productive cough. Pt was on 4th floor however transferred to ICU secondary to worsening respiratory failure requiring BiPAP. I am consulted for pulmonary management. Allergies and Home Medications Allergies Coded Allergies: No Known Drug Allergies (Unverified , 09/23/13) Home Medications Aspirin 81 Mg Tablet.dr 81 MG PO DAILY (Reported) Atorvastatin Calcium 20 Mg Tablet 20 MG PO HS (Reported) Bumetanide 1 Mg Tablet 1 MG PO BID (Reported) Carvedilol 12.5 Mg Tablet 12.5 MG PO BID (Reported) Dabigatran Etexilate Mesylate 150 Mg Capsule 150 MG PO BID (Reported) Diltiazem HCl 300 Mg Cap.er.24h 30Days 300 MG PO DAILY Prescribed by: HAROLDO HER on 01/06/17940 Duloxetine HCl 30 Mg Capsule.dr 30Days 30 MG PO BID Prescribed by: HAROLDO HER on 01/06/17 09 Fluticasone/Salmeterol 12 Gm Hfa.aer.ad 30Days 2 PUFF IH BID@08,20 Prescribed by: HAROLDO HER on 01/06/17 09 Insulin Aspart 300 Units/3 Ml Solution 6 UNITS SC AC (Reported) Insulin Detemir 100 Unit/1 Ml Insuln.pen 18 UNITS SC BID (Reported) Ipratropium/Albuterol Sulfate 3 Ml Ampul.neb 30Days 3 ML INH RTTID Prescribed by: HAROLDO HER on 01/06/17 09 Metformin HCl 500 Mg Tablet 1,000 MG PO BID (Reported) TAKES 2 (500 MG) TABLETS Montelukast Sodium 10 Mg Tablet 10 MG PO HS (Reported) Nicotine 1 Each Patch.td24 30Days 14 MG TD DAILY@0900 Prescribed by: HAROLDO HER on 01/06/17 09 Nystatin 100,000 Unit/1 Ml Oral.susp #30 5 ML PO QIDACHS Prescribed by: HAROLDO HER on 12/26/16 1135 Oxycodone HCl/Acetaminophen 1 Each Tablet #30 1 TAB PO Q8H PRN PRN PAIN Prescribed by: HAROLDO HER on 01/06/17 0941 Pantoprazole Sodium 40 Mg Tablet. #30 40 MG PO DAILY@0700 Prescribed by: HAROLDO HER on 01/06/17 0941 Polyethylene Glycol 3350 17 Gm Powd.pack 30Days 17 GM PO TID Prescribed by: HAROLDO HER on 01/06/17 0941 Potassium Chloride 20 Meq Tab.er.prt 20 MEQ PO DAILY (Reported) LAST FILLED 10/17/16 #30 Tiotropium [place] 4 Gm Mist.inhal 2 PUFF INH DAILY (Reported) Past Whubppj-Zlthyy-Qilcar Hx Patient Social History Alcohol Use: Denies Use Recreational Drug Use: No Smoking Status: Current Everyday Smoker Type Used: Cigarettes Recent Foreign Travel: No Contact w/Someone Who Travel: No Recent Infectious Disease Expo: No Recent Hopitalizations: Yes Physical Abuse Screen: No Sexual Abuse: No Immunizations Up To Date Tetanus Booster (TDap): Unknown Date of Influenza Vaccine: Dec 24, 2016 Seasonal Allergies Seasonal Allergies: No Surgeries HX Surgeries: Yes (CATARACT, heart cath) Surgeries: CABG, Eye Surgery Respiratory Hx Respiratory Disorders: Yes (tobaccoism) Respiratory Disorders: COPD Cardiovascular Hx Cardiac Disorders: Yes (history of congestive heart failure) Cardiac Disorders: Atrial Fibrillation, High Cholesterol, Hypertension Neurological Hx Neurological Disorders: Yes (MYASTHENIS GRAVIS) Reproductive System Hx Reproductive Disorders: No Sexually Transmitted Disease: No HIV/AIDS: No Genitourinary Hx Genitourinary Disorders: Yes Genitourinary Disorders: Renal Failure Gastrointestinal Hx Gastrointestinal Disorders: Yes Gastrointestinal Disorders: Gastroesophageal Reflux Musculoskeletal Hx Musculoskeletal Disorders: Yes (CHRONIC NECK PAIN) Musculoskeletal Disorders: Chronic Back Pain, Gout Endocrine Hx Endocrine Disorders: Yes Endocrine Disorders: Diabetes, Non-Insulin dep HEENT HX ENT Disorders: Yes (CATARACT SURGERY) Loss of Vision: Denies Hearing Impairment: Denies Cancer Hx Cancer: No Psychosocial Hx Psychiatric Problems: No Integumentary HX Skin/Integumentary Disorder: No Blood Transfusions Hx Blood Disorders: No Family Medical History Family Medial History: Alzheimer's disease 19 MOTHER Diabetes mellitus 19 MOTHER FH: lung cancer 19 FATHER Hypertension 19 FATHER 19 MOTHER Exam Exam Vital Signs Date Time Temp Pulse Resp B/P Pulse Ox O2 Delivery O2 Flow Rate FiO2 12/29/16 10:24 90 3.00 12/29/16 08:00 91 3.00 12/29/16 08:00 97.2 Nasal Cannula 3.00 12/29/16 07:22 94 3.00 12/29/16 07:10 96.4 12/29/16 07:00 90 12/29/16 06:00 102 22 105/75 90 Nasal Cannula 3.00 12/29/16 05:00 82 17 106/80 93 Nasal Cannula 3.00 12/29/16 04:00 91 3.00 12/29/16 04:00 96.4 84 15 117/90 89 Nasal Cannula 3.00 12/29/16 03:00 73 21 108/70 91 Nasal Cannula 3.00 12/29/16 02:00 95 16 110/88 88 Nasal Cannula 3.00 12/29/16 01:00 80 14 119/95 91 Nasal Cannula 3.00 12/29/16 01:00 80 12/29/16 00:00 93 3.00 12/29/16 00:00 97.6 69 15 122/82 93 Nasal Cannula 3.00 12/28/16 23:00 85 11 92/64 92 Nasal Cannula 3.00 12/28/16 22:00 84 16 106/63 91 Nasal Cannula 3.00 12/28/16 21:00 114 17 114/85 91 Nasal Cannula 3.00 12/28/16 20:55 100 25 159/90 91 3.00 12/28/16 20:00 90 3.00 12/28/16 20:00 99.1 103 25 132/99 90 Nasal Cannula 3.00 12/28/16 19:35 91 3.00 12/28/16 19:00 104 18 133/96 91 Nasal Cannula 3.00 12/28/16 19:00 104 12/28/16 18:00 110 24 140/88 89 Nasal Cannula 3.00 12/28/16 17:45 120 20 154/84 94 12/28/16 17:00 123 22 154/84 92 Nasal Cannula 3.00 12/28/16 16:26 126 20 108/70 12/28/16 16:16 91 3.00 12/28/16 16:12 91 12/28/16 16:00 91 3.00 12/28/16 16:00 124 25 111/84 92 Nasal Cannula 3.00 12/28/16 15:20 94 3.00 12/28/16 15:00 124 25 111/84 92 Nasal Cannula 3.00 12/28/16 14:25 129 151/94 12/28/16 14:00 151/94 12/28/16 13:55 140 22 94 2 12/28/16 13:10 97.3 140 24 97/76 95 12/28/16 11:43 97.3 I & O 12/29/16 07:00 Intake Total 1060 ml Output Total 1200 ml Balance -140 ml General Appearance: Mild Distress Neck: Full Range of Motion Respiratory: No Accessory Muscle Use No Respiratory Distress Decreased Breath Sounds Capillary Refill: Less Than 3 Seconds Gastrointestinal: normal bowel sounds soft Neurologic/Psychiatric: Alert Skin: Normal Color Warm/Dry Results Lab Laboratory Tests 12/28/16 11:00 12/29/16 03:55 Assessment/Plan Assessment/Plan Bilateral pneumonia vs atelectasis atrial fibrillation Congestive heart failure COPD Hypertriglyceridemia Diabetes Mellitus Clinical Quality Measures DVT/VTE Risk/Contraindication: Risk Factor Score Per Nursin RFS Level Per Nursing on Admit: 3=High AMILCAR GLASGOW DO Dec 29, 2016 11:11
[2016-12-29] MEDS: CEFEPIME INJECTION 2,000 MG in NS (IVPB) 50 ML IV SCH ×3 (11:39→22:40)
[2016-12-29] MEDS: UMECLIDINIUM BROMIDE (INCRUSE ELLIPTA) 7'S IH SCH (12:53)
[2016-12-29] MEDS: DILTIAZEM DRIP 100 MG in SODIUM CHLORIDE (ADD-VANTAGE) 100 ML IV SCH (15:59)
[2016-12-29] MEDS: NICOTINE 14 MG (NICODERM) PATCH TD SCH (15:59)
[2016-12-29] MEDS: FUROSEMIDE 40 MG/4 ML INJ (LASIX) IVP SCH (18:40)
[2016-12-29] MEDS: MONTELUKAST 10 MG (SINGULAIR) TAB PO SCH (22:18)
[2016-12-29] MEDS: ATORVASTATIN 20 MG (LIPITOR) TABLET PO SCH (22:18)
[2016-12-29] MEDS: VANCOMYCIN INJECTION 1,500 MG in NS IV 500 ML 500 ML IV SCH (23:17)
[2016-12-30] VITALS (13 sets, daily range): BP systolic 99–141; BP diastolic 55–89
[2016-12-30] MEDS: NYSTATIN ORAL SUSP 5 ML UDC PO SCH ×4 (03:09→16:56)
[2016-12-30] MEDS: oxyCODONE/APAP 10/325MG (PERCOCET 10) TABLET PO PRN ×3 (03:09→21:33)
[2016-12-30 04:13] LABS: MEAN PLATELET VOLUME 9.5 FL (7.4-10.4); RED BLOOD COUNT 4.16 10^6/uL (4.35-5.85); RED CELL DISTRIBUTION WIDTH 16.1 % (10.0-14.5); WHITE BLOOD COUNT 9.1 10^3/uL (4.3-11.0)
[2016-12-30 04:44] LABS: ANION GAP 11 MMOL/L (5-14); BLOOD UREA NITROGEN 20 MG/DL (7-18); BUN/CREATININE RATIO 18; CALCIUM 8.4 MG/DL (8.5-10.1); CARBON DIOXIDE 30 MMOL/L (21-32); CHLORIDE 100 MMOL/L (98-107); CREATININE SERUM 1.13 MG/DL (0.60-1.30); GFR ESTIMATED > 60; GLUCOSE 103 MG/DL (70-105); MAGNESIUM 1.4 MG/DL (1.8-2.4); PHOSPHORUS 2.2 MG/DL (2.3-4.7); POTASSIUM 3.9 MMOL/L (3.6-5.0); SODIUM 141 MMOL/L (135-145)
[2016-12-30] MEDS: KCL 20 MEQ TAB (K-DUR) PO SCH ×5 (05:52→21:43)
[2016-12-30] MEDS: POTASSIUM CL 10MEQ/50ML IVPB 50 ML IV SCH (05:52)
[2016-12-30] MEDS: MAGNESIUM 1 GM/100 ML IVPB 100 ML IV SCH ×3 (05:53→07:00)
[2016-12-30] MEDS: LACTOBACILLUS Acidoph/Bulgar (LACTINEX/FLORANEX) TAB PO SCH ×3 (06:59→16:56)
[2016-12-30] MEDS: FUROSEMIDE 40 MG/4 ML INJ (LASIX) IVP SCH ×2 (07:00→16:56)
--- NOTE | 2016-12-30 07:15 | Pulmonary Progress Note ---
Subjective Subjective/Events-last exam No complications noted. Pt is doing better. Exam Exam Vital Signs Date Time Temp Pulse Resp B/P Pulse Ox O2 Delivery O2 Flow Rate FiO2 12/30/16 06:42 93 3.00 12/30/16 06:00 80 13 133/81 92 Nasal Cannula 4.00 12/30/16 05:00 96 16 141/89 93 Nasal Cannula 4.00 12/30/16 04:00 98.1 84 17 117/89 93 Nasal Cannula 4.00 12/30/16 04:00 93 4.00 12/30/16 03:00 92 32 122/77 91 Nasal Cannula 4.00 12/30/16 02:00 84 19 107/82 96 Nasal Cannula 4.00 12/30/16 01:00 89 16 99/75 92 Nasal Cannula 4.00 12/30/16 01:00 89 12/30/16 00:00 99.4 86 19 113/81 93 Nasal Cannula 4.00 12/30/16 00:00 93 4.00 12/29/16 23:00 89 24 107/76 93 Nasal Cannula 4.00 12/29/16 22:45 91 30 126/78 95 Nasal Cannula 4.00 12/29/16 22:30 85 18 100/74 93 Nasal Cannula 4.00 12/29/16 22:15 98 19 121/82 93 Nasal Cannula 4.00 12/29/16 21:15 114 24 124/116 87 Nasal Cannula 4.00 12/29/16 20:00 93 4.00 12/29/16 19:38 88 3.00 12/29/16 19:00 90 12/29/16 16:58 97.7 12/29/16 16:00 97.7 Nasal Cannula 3.00 12/29/16 16:00 91 3.00 12/29/16 15:59 97.2 80 15 109/78 96 3.00 12/29/16 15:00 79 15 109/78 95 Nasal Cannula 3.00 12/29/16 14:26 96 3.00 12/29/16 14:00 80 112/85 96 Nasal Cannula 3.00 12/29/16 13:00 74 22 111/85 91 Nasal Cannula 3.00 12/29/16 12:00 82 20 99/68 91 Nasal Cannula 3.00 12/29/16 12:00 91 3.00 12/29/16 11:00 92 15 99/75 94 Nasal Cannula 3.00 12/29/16 10:24 90 3.00 12/29/16 10:00 92 14 107/83 92 Nasal Cannula 3.00 12/29/16 09:00 96 15 113/79 93 Nasal Cannula 3.00 12/29/16 08:00 91 3.00 12/29/16 08:00 97.2 Nasal Cannula 3.00 12/29/16 07:22 94 3.00 I & O 12/30/16 07:00 Intake Total 1835 ml Output Total 2950 ml Balance -1115 ml General Appearance: No Apparent Distress WD/WN Respiratory: Chest Non Tender No Accessory Muscle Use No Respiratory Distress Decreased Breath Sounds Cardiovascular: Regular Rate, Rhythm No Edema Capillary Refill: Less Than 3 Seconds Gastrointestinal: normal bowel sounds soft Neurologic/Psychiatric: Alert Oriented x3 Skin: Normal Color Warm/Dry Results Lab Laboratory Tests 12/28/16 11:00 12/29/16 03:55 12/30/16 03:40 Assessment/Plan Assessment/Plan Bilateral pneumonia vs atelectasis -currently on cefepime, vanco, and levaquin atrial fibrillation - pt converted to sinus Congestive heart failure Severe COPD -Add SVNs and advair - D/C MAT protocol - with MAT protocol pt is not on any inhalers. Hypomagnesium -replace Hypertriglyceridemia Diabetes Mellitus Clinical Quality Measures DVT/VTE Risk/Contraindication: Risk Factor Score Per Nursin RFS Level Per Nursing on Admit: 3=High AMILCAR GLASGOW DO Dec 30, 2016 07:15 RFS Level Per Nursing on Admit: 3=AMILCAR Kessler DO Dec 30, 2016 07:15
[2016-12-30] MEDS ORDERED: RT-ALBUTEROL/IPRATROPIUM 3 ML (DUONEB) VIAL IH PRN (07:30)
--- NOTE | 2016-12-30 08:34 | Progress Note (SOAP) ---
HUONG PRATT MEDICAL STUDENT 12/30/16 0834: Subjective Subjective/Events-last exam Mr. Lemons reports that in the past 24 hrs his breathing and abdominal pain have both noticeably improved, but he is still not back to baseline with his breathing, and he still reports an aching abdominal pain and no bowel movements in the past ~3 days. He also reports that his oral thrush has not improved, although his tx with Nystatin suspension was just recently started He denies nausea/vomiting (but reports that these are very unusual for him and he has experienced neither in many years), but explained that prior to onset of his abdominal pain, he did have looser stools than usual, but no melena and no hematochezia. Review of Systems General: No Night Sweats, MalaiseNo Appetite HEENT: Other (red ~2mm spot inferior to sclerae bilat, pt reports he started noticing them after cataract surgery 2 yrs ago and his eye doctor reports they are not concerning) Pulmonary: Dyspnea Cardiovascular: : EdemaNo: Chest Pain Gastrointestinal: : Abdominal PainNo: Constipation, Diarrhea, Hematochezia, Melena, Nausea, Vomiting Objective Exam Vital Signs Date Time Temp Pulse Resp B/P Pulse Ox O2 Delivery O2 Flow Rate FiO2 12/30/16 06:42 93 3.00 12/30/16 06:00 80 13 133/81 92 Nasal Cannula 4.00 12/30/16 05:00 96 16 141/89 93 Nasal Cannula 4.00 12/30/16 04:00 98.1 84 17 117/89 93 Nasal Cannula 4.00 12/30/16 04:00 93 4.00 12/30/16 03:00 92 32 122/77 91 Nasal Cannula 4.00 12/30/16 02:00 84 19 107/82 96 Nasal Cannula 4.00 12/30/16 01:00 89 16 99/75 92 Nasal Cannula 4.00 12/30/16 01:00 89 12/30/16 00:00 99.4 86 19 113/81 93 Nasal Cannula 4.00 12/30/16 00:00 93 4.00 12/29/16 23:00 89 24 107/76 93 Nasal Cannula 4.00 12/29/16 22:45 91 30 126/78 95 Nasal Cannula 4.00 12/29/16 22:30 85 18 100/74 93 Nasal Cannula 4.00 12/29/16 22:15 98 19 121/82 93 Nasal Cannula 4.00 12/29/16 21:15 114 24 124/116 87 Nasal Cannula 4.00 12/29/16 20:00 93 4.00 12/29/16 19:38 88 3.00 12/29/16 19:00 90 12/29/16 16:58 97.7 12/29/16 16:00 97.7 Nasal Cannula 3.00 12/29/16 16:00 91 3.00 12/29/16 15:59 97.2 80 15 109/78 96 3.00 12/29/16 15:00 79 15 109/78 95 Nasal Cannula 3.00 12/29/16 14:26 96 3.00 12/29/16 14:00 80 112/85 96 Nasal Cannula 3.00 12/29/16 13:00 74 22 111/85 91 Nasal Cannula 3.00 12/29/16 12:00 82 20 99/68 91 Nasal Cannula 3.00 12/29/16 12:00 91 3.00 12/29/16 11:00 92 15 99/75 94 Nasal Cannula 3.00 12/29/16 10:24 90 3.00 12/29/16 10:00 92 14 107/83 92 Nasal Cannula 3.00 12/29/16 09:00 96 15 113/79 93 Nasal Cannula 3.00 I & O 12/30/16 07:00 Intake Total 1930 ml Output Total 2950 ml Balance -1020 ml Capillary Refill : Less Than 3 Seconds General Appearance: No Apparent Distress HEENT: Other (Red ~2mm spot inferior to sclerae bilat; pt reports these have occasionally appeared ever since his cataract surgery 2 years ago) Respiratory: No Accessory Muscle Use, Rhonci (inspiratory and expiratory rhonchi in all lung johnson) Cardiovascular: Irregularly Irregular Peripheral Pulses: 1+ Carotid (R), 1+ Carotid (L) Gastrointestinal: distended (feels moderately firm, pt reports his abdomen is usually less firm at baseline)No guarding, No rebound, No tenderness, hernia ( umbilical hernia, no bowel sounds, incompletely reducible, has been asymptomatic for years) Neurologic/Psychiatric: Depressed Affect (Met at least >5 SIGECAPS criteria + depressed mood on psych exam this AM) Skin: Ecchymosis Other (several chronic ulcers on L leg) Results Lab Laboratory Tests 12/29/16 14:04: Glucometer 116H 12/29/16 22:17: Glucometer 144H 12/30/16 03:40: Anion Gap 11, BUN/Creatinine Ratio 18, Blood Urea Nitrogen 20H, Calcium Level 8.4L, Carbon Dioxide Level 30, Chloride Level 100, Creatinine 1.13, Estimat Glomerular Filtration Rate > 60, Glucose Level 103, Hematocrit 36L, Hemoglobin 11.6L, Magnesium Level 1.4L, Mean Corpuscular Hemoglobin 28, Mean Corpuscular Hemoglobin Concent 32, Mean Corpuscular Volume 88, Mean Platelet Volume 9.5, Phosphorus Level 2.2L, Platelet Count 199, Potassium Level 3.9, Red Blood Count 4.16L, Red Cell Distribution Width 16.1H, Sodium Level 141, White Blood Count 9.1 Microbiology 12/28/16 Blood Culture - Preliminary, Resulted No growth Assessment/Plan Assessment/Plan Assess & Plan/Chief Complaint Medical Student Assessment & Plan Neuro - On percocet 10/325 Q8H PRN for pain Psych - Met >5 (at least 6, possibly 7 but hx is unclear) SIGECAPS criteria on interview this AM with Dr. Brown - Discussed treatment options with Mr. 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 - dabigatran - diltiazem 5 mg/hr currently GI - On lactobacillus acidophilus/bulgaricus probiotic - Started nystatin suspension swish and swallow - Continue to monitor closely - Discussed/reviewed red flag symptoms to watch out for with periumbilical hernias, pt expressed that his doctor has already been through these and will continue to monitor for them Renal/ - Discontinued Furosemide and Bumex - Currently on magnesium and KCl for electrolyte replacement (Ca, Mg, and Phos low on today's AM labs) Endocrine - Continue detemir insulin BID - Continue metformin 1000 mg BID - Will continue to monitor sugar and symptoms closely ID - Plan to discontinue vancomycin today - Continue Cefepime Q12H - Continue Levaquin Q24H Ppx - On pharmacologic DVT ppx - On ABX currently - Starting GI ppx w/ famotidine today, discussed with patient (he has used Pepcid in the past) Disp - Continue ICU status while on diltiazem drip - Cardiology is following; HR improving Diagnosis/Problems: Clinical Quality Measures DVT/VTE Risk/Contraindication: Risk Factor Score Per Nursin RFS Level Per Nursing on Admit: 3=High ALYSSA BROWN MD 12/30/16 1045: Supervisory-Addendum Brief Supervisory Addendum Patient seen with MS4 Huong Pratt, see my notes for further documentation. HUONG PRATT MEDICAL STUDENT Dec 30, 2016 08:34 ALYSSA BROWN MD Dec 30, 2016 10:45
--- NOTE | 2016-12-30 08:55 | Progress Note-Cardiology ---
Cardiology SOAP Progress Note Subjective: Sitting up in bed. Feels breathing is somewhat improved today. Continues to c/ o abdominal discomfort, but feels it is somewhat better. Feels LE edema has improved. No c/o CP, palpitations, syncope or near syncope. C/O generalized weakness. Objective: I&O/Vital Signs Vital Sign - Last 12Hours 12/30/16 12/30/16 12/30/16 12/30/16 05:00 06:00 06:42 07:00 Pulse 96 80 75 Resp 16 13 15 B/P 141/89 133/81 Pulse Ox 93 92 93 92 O2 Delivery Nasal Cannula Nasal Cannula Nasal Cannula O2 Flow Rate 4.00 4.00 3.00 4.00 12/30/16 12/30/16 12/30/16 12/30/16 07:00 08:00 08:00 09:00 Pulse 70 88 91 Resp 17 15 B/P 108/82 Pulse Ox 91 93 94 O2 Delivery Nasal Cannula Nasal Cannula O2 Flow Rate 4.00 4.00 4.00 12/30/16 12/30/16 12/30/16 12/30/16 10:00 11:00 11:49 13:52 Temp 98.1 98.2 Pulse 93 91 88 Resp 22 32 24 B/P 116/82 109/72 99/55 Pulse Ox 97 96 95 O2 Delivery Nasal Cannula Nasal Cannula Nasal Cannula O2 Flow Rate 4.00 4.00 4.00 12/30/16 12/30/16 14:24 16:04 Pulse Ox 94 O2 Delivery Nasal Cannula O2 Flow Rate 3.00 4.00 Intake and Output 12/30/16 00:00 Intake Total 1245 ml Output Total 1400 ml Balance -155 ml Weight (Pounds): 235 Weight (Ounces): 8.0 Weight (Calculated Kilograms): 106.559358 Constitutional: AAO x 3 well-developed well-nourished Respiratory: No accessory muscle use, crackles (bi-basilar) wheezing ( expiratory wheezes) other (Diminished air entry on both lung bases with dullness to percussion, more so on the L side) Cardiovascular: irregularly irregular S1 and S2 systolic murmur (faint TINY at cardiac base) Gastrointestional: No tender, No guarding, No rebound, audible bowel sounds Extremities: No clubbing, No cyanosis, laceration (approx 1.cm superficial ulceration the mid-[place] on the L (clean base); mild surrounding erythema) significant edema (2 - 3 (+) pedal edema - improving) Neurologic/Psychiatric: oriented x 3 grossly intact power is 5/5 both on sides Skin: No rash, ulcerations (see under extremity exam) Results/Procedures: Labs Laboratory Tests 12/29/16 22:17: Glucometer 144H 12/30/16 03:40: Anion Gap 11, BUN/Creatinine Ratio 18, Blood Urea Nitrogen 20H, Calcium Level 8.4L, Carbon Dioxide Level 30, Chloride Level 100, Creatinine 1.13, Estimat Glomerular Filtration Rate > 60, Glucose Level 103, Hematocrit 36L, Hemoglobin 11.6L, Magnesium Level 1.4L, Mean Corpuscular Hemoglobin 28, Mean Corpuscular Hemoglobin Concent 32, Mean Corpuscular Volume 88, Mean Platelet Volume 9.5, Phosphorus Level 2.2L, Platelet Count 199, Potassium Level 3.9, Red Blood Count 4.16L, Red Cell Distribution Width 16.1H, Sodium Level 141, White Blood Count 9.1 12/30/16 10:00: Vancomycin Level Trough 27.0*H 12/30/16 11:53: Glucometer 97 12/30/16 16:04: Glucometer 117H Microbiology 12/28/16 Blood Culture - Preliminary, Resulted No growth A/P: Assessment: Acute exac of COPD due to bilateral pneumonia (?atypical pneumonia) CABG 3 vessel, GUZMAN to LAD, reverse saphenous vein graft to RPDA, reverse saphenous vein graft to OM1. Bi-atrial Farley MAZE by Dr. Raman on 08-26-16 CAD and cardiomyopathy. MPI of 01/22/16 showed ischemic cm; apical infarction with only minimal fred infarct ischemia; LVEF 31%. Subsequent cardiac cath of April 29, 2016 showed moderately severe MVD, including the left main; LVEF 50%; elevated LVEDP; no significant MR. Chronic systolic and diastolic CHF Intermittent noncompliance with meds Paroxysmal A-fib/flutter Pradaxa for stroke prophylaxis HTN Echocardiogram from July 2015 at [facility] by Dr. Farley showed CM with an LVEF of 30% and diastolic dysfunction. Echocardiogram of 10-23-16 technically difficult study. LVEF 55-60%. Mild MR and TR. No evidence of significant valvular stenosis. PASP estimated to be approx 50mmHg. Mild diastolic dysfunction of LV DM Myasthenia gravis - chronic steroid therapy H/o chronic left eye droop/closure following cataract surgery in July 2015 COPD Tobaccoism - 1/2 PPD - cessation advised Methamphetamine abuse - cessation advised Atherosclerotic plaque within the bilateral internal carotid arteries contributing to less than 50% stenosis per carotid u/s of 2-9-16 Suspected KILLIAN Chronic mild transaminase elevation, present even before statin therapy Abdominal discomfort of undetermined etiology - management per medical services Plan: * Treatment of pneumonia and COPD is with the Medical Service * Replenish lytes * Treat heart failure with diuretics * Monitor labs closely * Risk factor modification discussed with him and questions answered Physician Assessment Physician Assessment Lungs: fair bilat air entry Cor: irreg A&R * As documented in our note above * I spoke with the patient regarding CV issues * Change dilt to oral MARISA POPE Dec 30, 2016 08:55 JUILUS ALCARAZ MD FACP FAC CCDS Dec 30, 2016 16:16 Chronic mild transaminase elevation, present even before statin therapy Abdominal discomfort of undetermined etiology - management per medical services Plan: * Treatment of pneumonia and COPD is with the Medical Service * Tiara johnson * Treat heart failure with diuretics * Monitor labs closely * Risk factor modification discussed with him and questions answered MARISA POPE Dec 30, 2016 08:55
[2016-12-30] MEDS: NICOTINE PATCH REMOVAL TP SCH ×2 (08:59→09:52)
[2016-12-30] MEDS: PANTOPRAZOLE 40 MG (PROTONIX) TAB PO SCH ×2 (09:00→09:57)
[2016-12-30] MEDS: inSUlin DETERMIR 1 UNIT/0.01 ML (LEVEMIR) CHARGE PER UNIT SQ SCH ×3 (09:00→21:32)
[2016-12-30] MEDS: ASPIRIN E.C. 81 MG (ECOTRIN) TAB PO SCH ×2 (09:00→09:52)
[2016-12-30] MEDS: inSUlin ASPART (NovoLOG) 1 UNIT/0.01 ML (CHARGE PER UNIT) SC SCH ×3 (09:00→16:56)
[2016-12-30] MEDS: CARVEDILOL 12.5 MG (COREG) TABLET PO SCH ×3 (09:00→21:33)
[2016-12-30] MEDS: metFORMIN 500 MG (GLUCOPHAGE) TAB PO SCH ×3 (09:00→21:34)
[2016-12-30] MEDS: DABIGATRAN 150 MG (PRADAXA) CAPSULE PO SCH ×3 (09:00→21:33)
[2016-12-30] MEDS: CEFEPIME INJECTION 2,000 MG in NS (IVPB) 50 ML IV SCH ×3 (09:00→21:33)
--- NOTE | 2016-12-30 09:10 | Diagnostic Imaging Report ---
CLINICAL INDICATION: Patient with shortness of air. EXAM: Portable chest x-ray upright view. COMPARISONS: Chest x-ray dated 12/29/2016. FINDINGS: Lungs/pleura: There is slight improved aeration of the right midlung field and slight increased opacification in the right lung base. Otherwise, there is no significant change to the bilateral lung infiltrates. There is no pneumothorax. There is no pleural effusion. Mediastinum: Unremarkable. Pulmonary vasculature: Unremarkable. Heart: Stable cardiomegaly. Bones/extrathoracic soft tissue: Unremarkable. IMPRESSION: 1: There is slight improved aeration of the right midlung field and slight increased opacification in the right lung base. Otherwise, stable bilateral lung infiltrates. 2: Stable cardiomegaly with no significant pulmonary vascular congestion. Dictated by: Dictated on workstation # [id number]
[2016-12-30] MEDS: NICOTINE 14 MG (NICODERM) PATCH TD SCH ×2 (09:52→15:51)
[2016-12-30] MEDS ORDERED: TROUGH ORDER-PHARMACY XX NR (10:00)
--- NOTE | 2016-12-30 10:14 | Progress Note (SOAP) ---
Subjective Subjective/Events-last exam Afebrile, no acute events. He states his abdominal pain is a little better. He has used antacids in the past, but hasn't in some time. His last BM was about 3 days ago. Per Palliative care, patient discussed with her that he may be depressed. When questioned this morning he notes that he has felt down for probably several months. The only activity he found to be enjoyable is fishing and he hasn't been able to do that in a couple of years. He does have trouble sleeping and no energy and endorses significant psychomotor slowing. He does not particularly have problems with feeling guilty or with appetite. He does not endorse or deny suicidal ideation, but states that his son called the technical administrative assistant on him on Thursday because he said he would kill himself, but when asked if he wanted to harm himself, he states only "why would I?". He is agreeable to considering medication for depression. Objective Exam Last Set of Vital Signs Vital Signs Date Time Temp Pulse Resp B/P Pulse Ox O2 Delivery O2 Flow Rate FiO2 12/30/16 07:00 70 12/30/16 06:42 93 3.00 12/30/16 06:00 13 133/81 Nasal Cannula 12/30/16 04:00 98.1 Capillary Refill : Less Than 3 Seconds I&O Intake and Output 12/30/16 00:00 Intake Total 1875 ml Output Total 2500 ml Balance -625 ml Intake Oral 1830 ml IV Total 45 ml Output Urine Total 2500 ml General: Alert, No Acute Distress Lungs: Other (ronchi throughout) Abdomen: Normal Bowel Sounds, Other (distended, non-tender) Extremities: Other (mild pitting edema) Neuro: Normal Speech Psych/Mental Status: Mental Status NL Results/Procedures Lab Laboratory Tests 12/29/16 14:04: Glucometer 116H 12/29/16 22:17: Glucometer 144H 12/30/16 03:40: Anion Gap 11, BUN/Creatinine Ratio 18, Blood Urea Nitrogen 20H, Calcium Level 8.4L, Carbon Dioxide Level 30, Chloride Level 100, Creatinine 1.13, Estimat Glomerular Filtration Rate > 60, Glucose Level 103, Hematocrit 36L, Hemoglobin 11.6L, Magnesium Level 1.4L, Mean Corpuscular Hemoglobin 28, Mean Corpuscular Hemoglobin Concent 32, Mean Corpuscular Volume 88, Mean Platelet Volume 9.5, Phosphorus Level 2.2L, Platelet Count 199, Potassium Level 3.9, Red Blood Count 4.16L, Red Cell Distribution Width 16.1H, Sodium Level 141, White Blood Count 9.1 12/30/16 10:00: Microbiology 12/28/16 Blood Culture - Preliminary, Resulted No growth Radiology NAME: RIOG MARCUS [facility] REC#: [id number] PT STATUS: ADM IN : 1960 PHYSICIAN: MICHOACANO FIORE APRN ADMIT DATE: 12/28/16/ICU Signed Date of Exam: 12/28/16 CHEST PA/LAT (2 VIEW) INDICATION: Worsening abdominal pain since yesterday. CHF. EXAMINATION: Two-view chest 12/28/2016 Comparison made with prior examination from 12/25/2016. FINDINGS: Cardio megaly noted. Pulmonary vasculature minimally prominent. Findings of edema seen throughout both lungs and stable from previous imaging. Due to patient body habitus evaluation for infiltrate is limited. However at least bibasal atelectasis is suspected. Small infiltrate difficult to exclude, correlate with symptoms. No effusions are seen. Sternotomy wires and mediastinal clips noted as well as epicardial leads present. IMPRESSION: Bibasal atelectasis versus infiltrate correlate with symptoms. Suspected mild pulmonary edema. Dictated by: Dictated on workstation # [id number] Dict: 12/28/16 1128 Trans: 12/28/16 1729 [facility] [id number] Interpreted by: RAMEZ QUINONEZ MD Electronically signed by:RAMEZ QUINONEZ MD 12/28/16 1732 Assessment/Plan Assessment/Plan Admission Dx 1. Bilateral by basilar infiltratesmost likely pneumonia. Also in the differential is atelectasis 2. Atrial tachycardia with a history chronic atrial fibrillation 3. Nonspecific abdominal pain 4 Congestive heart failure - history of 5. COPD-history of 6. Hypertriglyceridemia 7. Diabetes Mellitus Plan 1. Bilateral by basilar infiltratesmost likely pneumonia. Also in the differential is atelectasis -Patient to be admitted for IV cefepime -blood culture is pending 12/29- due to recent hospitalization will treat for HAP, vanc, zosyn and cefepime. Clinically improving, continue to monitor. 12/30 - if blood cx remains negative at 48 hours will d/c vancomycin 2. Atrial tachycardia with a history chronic atrial fibrillation -He was initiated on Cardizem drip in the ED. -cardiology consultation 3. Nonspecific abdominal pain -Continue to monitor -CT abdomen with no significant pathology 12/30 Add pantoprazole and try miralax due to constipation 4 Congestive heart failure - history of -continue diuretic and treatment per Cardiology 5. COPD-history of -RT, MAT protocol -Continue home inhaler 6. Hypertriglyceridemia -continue statin 7. Diabetes Mellitus -he will be maintained on home insulin regimen 8. Depression- given his chronic pain and depression, discussed trial of cymbalta and will start inpatient although we did discuss it may take some time to note the effect DVT prophlaxis--SCDs, on dabigatrin as home med- continued Disp- discussed his wishes with patient this am (12/29) and he stated he does not want to be intubated or have chest compressions or cardioversion if he should become more seriously ill. Will change code status to DNR per his request. Diagnosis/Problems: Clinical Quality Measures DVT/VTE Risk/Contraindication: Risk Factor Score Per Nursin RFS Level Per Nursing on Admit: 3=High ALYSSA BROWN MD Dec 30, 2016 10:14 am
[2016-12-30] MEDS ORDERED: POLYETHYLENE GLYCOL 17 GM (MIRALAX) PACK PO NR (10:20)
[2016-12-30] MEDS: VANCOMYCIN INJECTION 1,500 MG in NS IV 500 ML 500 ML IV SCH (11:00)
[2016-12-30] MEDS: RT-ADVAIR HFA 115/21 MCG PER PUFF IH SCH ×2 (11:05→19:40)
[2016-12-30] MEDS: UMECLIDINIUM BROMIDE (INCRUSE ELLIPTA) 7'S IH SCH (11:05)
[2016-12-30] MEDS: RT-ALBUTEROL/IPRATROPIUM 3 ML (DUONEB) VIAL INH SCH ×3 (11:05→19:40)
[2016-12-30] MEDS: DILTIAZEM 300 MG (CARDIZEM CD) CAP PO SCH (11:49)
[2016-12-30] MEDS: LEVOFLOXACIN 750 MG TAB (LEVAQUIN) PO SCH (15:49)
[2016-12-30] MEDS: MONTELUKAST 10 MG (SINGULAIR) TAB PO SCH (21:33)
[2016-12-30] MEDS: DULoxetine 30 MG (CYMBALTA) CAP PO SCH (21:33)
[2016-12-30] MEDS: ATORVASTATIN 20 MG (LIPITOR) TABLET PO SCH (21:33)
[2016-12-31] VITALS: BP 97/58
[2016-12-31] MEDS: RT-ALBUTEROL/IPRATROPIUM 3 ML (DUONEB) VIAL INH SCH ×4 (02:23→21:26)
[2016-12-31 04:00] VITALS: BP 113/69
[2016-12-31] MEDS ORDERED: TROUGH ORDER-PHARMACY XX NR (06:00)
[2016-12-31] MEDS: FUROSEMIDE 40 MG/4 ML INJ (LASIX) IVP SCH ×2 (06:02→16:55)
[2016-12-31] MEDS: LACTOBACILLUS Acidoph/Bulgar (LACTINEX/FLORANEX) TAB PO SCH ×3 (06:02→16:55)
[2016-12-31] MEDS: NYSTATIN ORAL SUSP 5 ML UDC PO SCH ×4 (06:02→17:04)
[2016-12-31] MEDS: PANTOPRAZOLE 40 MG (PROTONIX) TAB PO SCH (06:02)
[2016-12-31 06:05] LABS: BASOPHILS % (AUTO) 0 % (0-10); EOSINOPHILS # (AUTO) 0.1 10^3/uL (0.0-0.3); EOSINOPHILS % (AUTO) 1 % (0-10); LYMPHOCYTES # (AUTO) 1.2 X 10^3 (1.0-4.0); LYMPHOCYTES % (AUTO) 15 % (12-44); MEAN CORPUSCULAR HEMOGLOBIN 28 PG (25-34); MEAN CORPUSCULAR HGB CONC 32 G/DL (32-36); MEAN CORPUSCULAR VOLUME 87 FL (80-99); MEAN PLATELET VOLUME 9.1 FL (7.4-10.4); MONOCYTES # (AUTO) 0.9 X 10^3 (0.0-1.0); MONOCYTES % (AUTO) 11 % (0-12); NEUTROPHILS % (AUTO) 74 % (42-75); PLATELET COUNT 222 10^3/uL (130-400); RED BLOOD COUNT 3.84 10^6/uL (4.35-5.85); RED CELL DISTRIBUTION WIDTH 16.3 % (10.0-14.5); WHITE BLOOD COUNT 8.2 10^3/uL (4.3-11.0)
[2016-12-31 06:23] LABS: CALCIUM 8.6 MG/DL (8.5-10.1); CREATININE SERUM 1.26 MG/DL (0.60-1.30); POTASSIUM 3.9 MMOL/L (3.6-5.0)
[2016-12-31] MEDS: oxyCODONE/APAP 10/325MG (PERCOCET 10) TABLET PO PRN ×2 (06:36→17:40)
[2016-12-31] MEDS: inSUlin ASPART (NovoLOG) 1 UNIT/0.01 ML (CHARGE PER UNIT) SC SCH ×3 (06:36→16:00)
[2016-12-31 07:35] LABS: MAGNESIUM 1.7 MG/DL (1.8-2.4); PHOSPHORUS 2.7 MG/DL (2.3-4.7)
[2016-12-31 08:00] VITALS: BP 119/79
[2016-12-31] MEDS ORDERED: VANCOMYCIN INJECTION 1,500 MG in NS IV 500 ML 500 ML IV SCH (08:00)
--- NOTE | 2016-12-31 08:15 | Diagnostic Imaging Report ---
Clinical indication: Patient with dyspnea. Exam: Portable chest x-ray upright view. Comparison: Chest x-ray dated 12/30/2016. Findings: There is slight progression of increased opacification involving the right lung base and right midlung field which may represent atelectasis versus infiltrate. Otherwise, the remainder of the lungs are stable and clear. There is no pleural effusion or pneumothorax. Stable cardiomegaly. There is no significant pulmonary vascular congestion. Stable postop changes to the chest with sternotomy wires and mediastinal clips. The remainder of this exam shows no significant interval change compared to the prior study of comparison. Impression: 1.: Slight increased opacification involving the right midlung field right lung base which may represent atelectasis, but progression of superimposed infiltrate can't be completely excluded. 2.: Stable cardiomegaly with no significant pulmonary vascular congestion. Dictated by: Dictated on workstation # [id number]
[2016-12-31] MEDS: DULoxetine 30 MG (CYMBALTA) CAP PO SCH ×2 (09:00→21:00)
[2016-12-31] MEDS: metFORMIN 500 MG (GLUCOPHAGE) TAB PO SCH ×2 (09:00→21:01)
[2016-12-31] MEDS: DILTIAZEM 300 MG (CARDIZEM CD) CAP PO SCH (09:00)
[2016-12-31] MEDS: CARVEDILOL 12.5 MG (COREG) TABLET PO SCH ×2 (09:00→21:00)
[2016-12-31] MEDS: DABIGATRAN 150 MG (PRADAXA) CAPSULE PO SCH ×2 (09:00→21:01)
[2016-12-31] MEDS: ASPIRIN E.C. 81 MG (ECOTRIN) TAB PO SCH (09:01)
[2016-12-31] MEDS: KCL 20 MEQ TAB (K-DUR) PO SCH ×2 (09:01→21:01)
[2016-12-31] MEDS: inSUlin DETERMIR 1 UNIT/0.01 ML (LEVEMIR) CHARGE PER UNIT SQ SCH ×2 (09:04→21:24)
[2016-12-31] MEDS: NICOTINE 14 MG (NICODERM) PATCH TD SCH (09:05)
[2016-12-31] MEDS: NICOTINE PATCH REMOVAL TP SCH (09:05)
--- NOTE | 2016-12-31 09:14 | Progress Note (SOAP) ---
HUONG PRATT MEDICAL STUDENT 12/31/16 0914: Subjective Subjective/Events-last exam Mr. Lemons reports that his abdominal pain has continued to decrease over the past 24 hours, but it is still not back to baseline He also reports that his breathing has fluctuated from occasionally feeling worse to better, but overall he thinks it is trending towards better. We discussed his mood, and he reports that it has been the same for the past several days. He appreciates that he was able to sleep better on floor status rather than the ICU now that he is no longer on the diltiazem drip. We discussed his medications, and he reports that he has had some difficulty taking them due to poor taste (especially his inhalers) and feeling minimal improvement with them. I reiterated that the antidepressant typically takes several weeks to start having a noticeable effect, and explained that we are treating an acute lung problem and the goal is for him to recover back maker to his baseline lung function and reviewed the functions of his different inhalers. We also discussed that there are alternatives to the nystatin for oral thrush but that it is probably the best option for now. He agreed to continue with his current pharmacotherapeutic regimen for now. Review of Systems General: No Chills, Other (depressed mood) Pulmonary: Dyspnea (stable) Cardiovascular: No: Chest Pain Gastrointestinal: : Abdominal Pain (gradually reducing over past 48 hrs)No: Hematochezia, Melena, Nausea, Vomiting Objective Exam Vital Signs Date Time Temp Pulse Resp B/P Pulse Ox O2 Delivery O2 Flow Rate FiO2 12/31/16 04:00 96.6 76 12 113/69 96 High Flow NC 4.00 12/31/16 00:00 98.0 80 16 97/58 94 Nasal Cannula 4.00 12/30/16 23:22 Nasal Cannula 4.00 12/30/16 20:00 99.1 105 20 137/74 95 Nasal Cannula 4.00 12/30/16 19:44 4.00 12/30/16 19:42 90 4.00 12/30/16 16:04 Nasal Cannula 4.00 12/30/16 15:30 98.4 88 20 102/72 95 Nasal Cannula 4.00 12/30/16 14:24 94 3.00 12/30/16 13:52 98.2 88 24 99/55 95 Nasal Cannula 4.00 12/30/16 11:49 98.1 12/30/16 11:00 91 32 109/72 96 Nasal Cannula 4.00 12/30/16 10:00 93 22 116/82 97 Nasal Cannula 4.00 I & O 12/31/16 07:00 Intake Total 540 ml Output Total 765 ml Balance -225 ml Capillary Refill : Less Than 3 SecondsLess Than 3 Seconds General Appearance: No Apparent DistressNo Anxious Respiratory: No Accessory Muscle Use, Rhonci (bilateral) Wheezing (expiratory wheezing) Cardiovascular: No Regular Rate, Rhythm, No Murmur Irregularly Irregular Peripheral Pulses: 1+ Radial Pulses (R), 1+ Radial Pulses (L) Gastrointestinal: No distended (previous distention on exam resolved), hernia (umbilical) Extremity: Pedal Edema (significantly reduced over past 48 hrs) Skin: Ecchymosis Other (ulcerations, iza on LLE) Results Lab Laboratory Tests 12/30/16 10:00: Vancomycin Level Trough 27.0*H 12/30/16 11:53: Glucometer 97 12/30/16 16:04: Glucometer 117H 12/30/16 20:32: Glucometer 157H 12/31/16 05:39: Anion Gap 13, BUN/Creatinine Ratio 17, Basophils # (Auto) 0.0, Basophils (%) ( Auto) 0, Blood Urea Nitrogen 22H, Calcium Level 8.6, Carbon Dioxide Level 30, Chloride Level 98, Creatinine 1.26, Eosinophils # (Auto) 0.1, Eosinophils (%) ( Auto) 1, Estimat Glomerular Filtration Rate 59, Glucose Level 141H, Hematocrit 34L, Hemoglobin 10.6L, Lymphocytes # (Auto) 1.2, Lymphocytes (%) (Auto) 15, Magnesium Level 1.7L, Mean Corpuscular Hemoglobin 28, Mean Corpuscular Hemoglobin Concent 32, Mean Corpuscular Volume 87, Mean Platelet Volume 9.1, Monocytes # (Auto) 0.9, Monocytes (%) (Auto) 11, Neutrophils # (Auto) 6.0, Neutrophils (%) (Auto) 74, Phosphorus Level 2.7, Platelet Count 222, Potassium Level 3.9, Red Blood Count 3.84L, Red Cell Distribution Width 16.3H, Sodium Level 141, Vancomycin Level Trough 11.3, White Blood Count 8.2 Microbiology 12/28/16 Blood Culture - Preliminary, Resulted No growth Assessment/Plan Assessment/Plan Assess & Plan/Chief Complaint Medical Student Assessment & Plan Pain mgmt - On percocet 10/325 Q8H PRN for pain Depression - Met >5 (at least 6, possibly 7 but hx is unclear) SIGECAPS criteria - Continue Cymbalta (reviewed that it takes several weeks to have effect) 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, carvedilol, and dabigatran - diltiazem discontinued Abdominal pain - On lactobacillus acidophilus/bulgaricus probiotic - Continue nystatin suspension swish and swallow - On pantoprazole - Improving steadily, continue to monitor DM - Continue detemir insulin BID - Continue metformin 1000 mg BID - Will continue to monitor sugar and symptoms closely - So far blood glucose has been well-controlled this week Pneumonia - No growth from blood cultures - Plan to discontinue cefepime today - Continue Levaquin Q24H for now Disp - Continue floor status - Cardiology is following Diagnosis/Problems: Clinical Quality Measures DVT/VTE Risk/Contraindication: Risk Factor Score Per Nursin RFS Level Per Nursing on Admit: 3=High ALYSSA BROWN MD 12/31/16 1133: Supervisory-Addendum Brief Supervisory Addendum Patient seen with MS4 Huong Pratt, see my notes same day. HUONG PRATT MEDICAL STUDENT Dec 31, 2016 09:14 ALYSSA BROWN MD Dec 31, 2016 11:33
--- NOTE | 2016-12-31 09:40 | Progress Note-Cardiology ---
Cardiology SOAP Progress Note Subjective: Sitting up in bed. States he feels better today. He reports his breathing, leg swelling and abdominal pain are better today. No c/o CP, palpitations, syncope or near syncope. Objective: I&O/Vital Signs Vital Sign - Last 12Hours 12/31/16 12/31/16 12/31/16 12/31/16 04:00 08:00 10:00 10:00 Temp 96.6 96.8 Pulse 76 80 Resp 12 20 B/P 113/69 119/79 Pulse Ox 96 93 95 95 O2 Delivery High Flow NC Nasal Cannula O2 Flow Rate 4.00 4.00 4.00 Intake and Output 12/31/16 00:00 Intake Total 340 ml Output Total 240 ml Balance 100 ml Weight (Pounds): 234 Weight (Ounces): 8.0 Weight (Calculated Kilograms): 106.286746 Constitutional: AAO x 3 well-developed well-nourished Respiratory: No accessory muscle use, crackles (bi-basilar) wheezing ( expiratory wheezes) Cardiovascular: irregularly irregular S1 and S2 systolic murmur (faint TINY at cardiac base) Gastrointestional: No tender, soft roundNo guarding, No rebound, audible bowel sounds Extremities: No clubbing, No cyanosis, laceration (approx 1.cm superficial ulceration the mid-[place] on the L (clean base); mild surrounding erythema) significant edema (1-2 (+) pedal edema - improving) Neurologic/Psychiatric: oriented x 3 grossly intact power is 5/5 both on sides Skin: No rash, ulcerations (see under extremity exam) Results/Procedures: Labs Laboratory Tests 12/30/16 16:04: Glucometer 117H 12/30/16 20:32: Glucometer 157H 12/31/16 05:39: Anion Gap 13, BUN/Creatinine Ratio 17, Basophils # (Auto) 0.0, Basophils (%) ( Auto) 0, Blood Urea Nitrogen 22H, Calcium Level 8.6, Carbon Dioxide Level 30, Chloride Level 98, Creatinine 1.26, Eosinophils # (Auto) 0.1, Eosinophils (%) ( Auto) 1, Estimat Glomerular Filtration Rate 59, Glucose Level 141H, Hematocrit 34L, Hemoglobin 10.6L, Lymphocytes # (Auto) 1.2, Lymphocytes (%) (Auto) 15, Magnesium Level 1.7L, Mean Corpuscular Hemoglobin 28, Mean Corpuscular Hemoglobin Concent 32, Mean Corpuscular Volume 87, Mean Platelet Volume 9.1, Monocytes # (Auto) 0.9, Monocytes (%) (Auto) 11, Neutrophils # (Auto) 6.0, Neutrophils (%) (Auto) 74, Phosphorus Level 2.7, Platelet Count 222, Potassium Level 3.9, Red Blood Count 3.84L, Red Cell Distribution Width 16.3H, Sodium Level 141, Vancomycin Level Trough 11.3, White Blood Count 8.2 12/31/16 11:31: Glucometer 131H Microbiology 12/28/16 Blood Culture - Preliminary, Resulted No growth Procedures NAME: RIGO MARCUS [facility] REC#: [id number] PT STATUS: ADM IN : 1960 PHYSICIAN: CHEPE DAVIS MD ADMIT DATE: 12/28/16 Draft Date of Exam:12/31/16 CHEST 1 VIEW, AP/PA ONLY Clinical indication: Patient with dyspnea. Exam: Portable chest x-ray upright view. Comparison: Chest x-ray dated 12/30/2016. Findings: There is slight progression of increased opacification involving the right lung base and right midlung field which may represent atelectasis versus infiltrate. Otherwise, the remainder of the lungs are stable and clear. There is no pleural effusion or pneumothorax. Stable cardiomegaly. There is no significant pulmonary vascular congestion. Stable postop changes to the chest with sternotomy wires and mediastinal clips. The remainder of this exam shows no significant interval change compared to the prior study of comparison. Impression: 1.: Slight increased opacification involving the right midlung field right lung base which may represent atelectasis, but progression of superimposed infiltrate can't be completely excluded. 2.: Stable cardiomegaly with no significant pulmonary vascular congestion. Dictated on workstation # [id number] Dict: 12/31/16806 Trans: 12/31/16 0815 [place]AG[place] [id number] Interpreted by: PETRONA FRANKEL MD Electronically signed by: A/P: Assessment: Acute exac of COPD due to bilateral pneumonia (?atypical pneumonia) - medical services managing CABG 3 vessel, GUZMAN to LAD, reverse saphenous vein graft to RPDA, reverse saphenous vein graft to OM1. Bi-atrial Farley MAZE by Dr. Raman on 08-26-16 CAD and cardiomyopathy. MPI of 01/22/16 showed ischemic cm; apical infarction with only minimal fred infarct ischemia; LVEF 31%. Subsequent cardiac cath of April 29, 2016 showed moderately severe MVD, including the left main; LVEF 50%; elevated LVEDP; no significant MR. Chronic systolic and diastolic CHF - clinically improved Intermittent noncompliance with meds Paroxysmal A-fib/flutter - rate controlled Pradaxa for stroke prophylaxis HTN Echocardiogram from July 2015 at [facility] by Dr. Farley showed CM with an LVEF of 30% and diastolic dysfunction. Echocardiogram of 10-23-16 technically difficult study. LVEF 55-60%. Mild MR and TR. No evidence of significant valvular stenosis. PASP estimated to be approx 50mmHg. Mild diastolic dysfunction of LV DM Myasthenia gravis - chronic steroid therapy H/o chronic left eye droop/closure following cataract surgery in July 2015 COPD Tobaccoism - 11/17 PPD - cessation advised H/O Methamphetamine abuse - continued cessation advised Atherosclerotic plaque within the bilateral internal carotid arteries contributing to less than 50% stenosis per carotid u/s of 12-25-15 Suspected KILLIAN Chronic mild transaminase elevation, present even before statin therapy Abdominal discomfort of undetermined etiology - management per medical services Plan: * Treatment of pneumonia and COPD is with the Medical Service * Replenish lytes * CHF clinically improving. We will change diuretics to oral starting tomorrow * Monitor labs closely Physician Assessment Physician Assessment Lungs: fair to good bilat air entry Cor: reg Moderate bilateral leg swelling A&R * As documented in our note above * I spoke with him and answered questions MARISA POPE Dec 31, 2016 09:39 JULIUS ALCARAZ MD FACP FAC CCDS Dec 31, 2016 13:23
[2016-12-31] MEDS ORDERED: MAGNESIUM 1 GM/100 ML IVPB 100 ML IV NR (09:53)
[2016-12-31] MEDS: RT-ADVAIR HFA 115/21 MCG PER PUFF IH SCH ×2 (10:02→21:26)
[2016-12-31] MEDS: UMECLIDINIUM BROMIDE (INCRUSE ELLIPTA) 7'S IH SCH (10:10)
--- NOTE | 2016-12-31 11:04 | Progress Note (SOAP) ---
Subjective Subjective/Events-last exam Afebrile, no acute events. Able to be off diltiazem drip and transferred to floor. Objective Exam Last Set of Vital Signs Vital Signs Date Time Temp Pulse Resp B/P Pulse Ox O2 Delivery O2 Flow Rate FiO2 12/31/16 10:00 95 12/31/16 10:00 4.00 12/31/16 08:00 96.8 80 20 119/79 Nasal Cannula Capillary Refill : Less Than 3 SecondsLess Than 3 Seconds I&O Bad tableGeneral: Alert, No Acute Distress Lungs: Other (rales throughout) Heart: Other (irregularly irregular, normal rate) Extremities: Other (significantly improved edema with skin wrinkling on feet) Neuro: Normal Speech Psych/Mental Status: Mental Status NL Results/Procedures Lab Laboratory Tests 12/30/16 11:53: Glucometer 97 12/30/16 16:04: Glucometer 117H 12/30/16 20:32: Glucometer 157H 12/31/16 05:39: Anion Gap 13, BUN/Creatinine Ratio 17, Basophils # (Auto) 0.0, Basophils (%) ( Auto) 0, Blood Urea Nitrogen 22H, Calcium Level 8.6, Carbon Dioxide Level 30, Chloride Level 98, Creatinine 1.26, Eosinophils # (Auto) 0.1, Eosinophils (%) ( Auto) 1, Estimat Glomerular Filtration Rate 59, Glucose Level 141H, Hematocrit 34L, Hemoglobin 10.6L, Lymphocytes # (Auto) 1.2, Lymphocytes (%) (Auto) 15, Magnesium Level 1.7L, Mean Corpuscular Hemoglobin 28, Mean Corpuscular Hemoglobin Concent 32, Mean Corpuscular Volume 87, Mean Platelet Volume 9.1, Monocytes # (Auto) 0.9, Monocytes (%) (Auto) 11, Neutrophils # (Auto) 6.0, Neutrophils (%) (Auto) 74, Phosphorus Level 2.7, Platelet Count 222, Potassium Level 3.9, Red Blood Count 3.84L, Red Cell Distribution Width 16.3H, Sodium Level 141, Vancomycin Level Trough 11.3, White Blood Count 8.2 Microbiology 12/28/16 Blood Culture - Preliminary, Resulted No growth Radiology NAME: RIGO MARCUS [facility] REC#: [id number] PT STATUS: ADM IN : 1960 PHYSICIAN: MICHOACANO FIORE APRN ADMIT DATE: 12/28/16/ICU Signed Date of Exam: 12/28/16 CHEST PA/LAT (2 VIEW) INDICATION: Worsening abdominal pain since yesterday. CHF. EXAMINATION: Two-view chest 12/28/2016 Comparison made with prior examination from 12/25/2016. FINDINGS: Cardio megaly noted. Pulmonary vasculature minimally prominent. Findings of edema seen throughout both lungs and stable from previous imaging. Due to patient body habitus evaluation for infiltrate is limited. However at least bibasal atelectasis is suspected. Small infiltrate difficult to exclude, correlate with symptoms. No effusions are seen. Sternotomy wires and mediastinal clips noted as well as epicardial leads present. IMPRESSION: Bibasal atelectasis versus infiltrate correlate with symptoms. Suspected mild pulmonary edema. Dictated by: Dictated on workstation # [id number] Dict: 12/28/16 1128 Trans: 12/28/16 1729 [facility] [id number] Interpreted by: RAMEZ QUINONEZ MD Electronically signed by:RAMEZ QUINONEZ MD 12/28/16 1732 Assessment/Plan Assessment/Plan Admission Dx 1. Bilateral by basilar infiltratesmost likely pneumonia. Also in the differential is atelectasis 2. Atrial tachycardia with a history chronic atrial fibrillation 3. Nonspecific abdominal pain 4 Congestive heart failure - history of 5. COPD-history of 6. Hypertriglyceridemia 7. Diabetes Mellitus Plan 1. Bilateral by basilar infiltratesmost likely pneumonia. Also in the differential is atelectasis -Patient to be admitted for IV cefepime -blood culture is pending 12/29- due to recent hospitalization will treat for HAP, vanc, zosyn and cefepime. Clinically improving, continue to monitor. 12/30 - if blood cx remains negative at 48 hours will d/c vancomycin 12/31 - d/c vancomycin and cefepime as there is no growth on blood cultures and he continues to be stable/improved clinically 2. Atrial tachycardia with a history chronic atrial fibrillation -He was initiated on Cardizem drip in the ED. -cardiology consultation 12/31 transitioned to PO 3. Nonspecific abdominal pain -Continue to monitor -CT abdomen with no significant pathology 12/30 Add pantoprazole and try miralax due to constipation 4 Congestive heart failure - history of -continue diuretic and treatment per Cardiology 12/31 per Cardiology switch to oral furosemide tomorrow 5. COPD-history of -RT, MAT protocol -Continue home inhalers 6. Hypertriglyceridemia -continue statin 7. Diabetes Mellitus -he will be maintained on home insulin regimen 8. Depression- given his chronic pain and depression, discussed trial of cymbalta and will start inpatient although we did discuss it may take some time to note the effect DVT prophlaxis--SCDs, on dabigatrin as home med- continued Disp- discussed his wishes with patient this am (12/29) and he stated he does not want to be intubated or have chest compressions or cardioversion if he should become more seriously ill. Will change code status to DNR per his request. Diagnosis/Problems: Clinical Quality Measures DVT/VTE Risk/Contraindication: Risk Factor Score Per Nursin RFS Level Per Nursing on Admit: 3=High ALYSSA BROWN MD Dec 31, 2016 11:04 am
[2016-12-31] MEDS: LEVOFLOXACIN 750 MG TAB (LEVAQUIN) PO SCH (11:11)
[2016-12-31] MEDS: CEFEPIME INJECTION 2,000 MG in NS (IVPB) 50 ML IV SCH (11:15)
[2016-12-31 12:00] VITALS: BP 112/75
[2016-12-31 16:00] VITALS: BP 124/63
[2016-12-31] MEDS ORDERED: POLYETHYLENE GLYCOL 17 GM (MIRALAX) PACK ONE (16:52)
[2016-12-31] MEDS ORDERED: POLYETHYLENE GLYCOL 17 GM (MIRALAX) PACK PO NR (17:15)
[2016-12-31 20:00] VITALS: BP 120/78
[2016-12-31] MEDS: MONTELUKAST 10 MG (SINGULAIR) TAB PO SCH (21:00)
[2016-12-31] MEDS: ATORVASTATIN 20 MG (LIPITOR) TABLET PO SCH (21:01)
[2017-01-01] VITALS: BP 110/66
[2017-01-01] MEDS: NYSTATIN ORAL SUSP 5 ML UDC PO SCH ×5 (00:40→23:57)
[2017-01-01] MEDS: oxyCODONE/APAP 10/325MG (PERCOCET 10) TABLET PO PRN ×2 (01:22→13:38)
[2017-01-01] MEDS: RT-ALBUTEROL/IPRATROPIUM 3 ML (DUONEB) VIAL INH SCH ×4 (03:35→21:00)
[2017-01-01 04:00] VITALS: BP 119/66
[2017-01-01 05:36] LABS: CALCIUM 8.6 MG/DL (8.5-10.1); CREATININE SERUM 1.32 MG/DL (0.60-1.30); MAGNESIUM 1.8 MG/DL (1.8-2.4); POTASSIUM 4.3 MMOL/L (3.6-5.0)
[2017-01-01] MEDS: FUROSEMIDE 40 MG/4 ML INJ (LASIX) IVP SCH (06:05)
[2017-01-01] MEDS: LACTOBACILLUS Acidoph/Bulgar (LACTINEX/FLORANEX) TAB PO SCH ×3 (06:05→16:00)
[2017-01-01] MEDS: PANTOPRAZOLE 40 MG (PROTONIX) TAB PO SCH (06:05)
[2017-01-01] MEDS: UMECLIDINIUM BROMIDE (INCRUSE ELLIPTA) 7'S IH SCH (07:00)
[2017-01-01] MEDS: RT-ADVAIR HFA 115/21 MCG PER PUFF IH SCH ×2 (07:00→21:24)
[2017-01-01 08:00] VITALS: BP 141/80
--- NOTE | 2017-01-01 08:22 | Pulmonary Progress Note ---
Subjective Subjective/Events-last exam pt is feeling much improved. Exam Exam Vital Signs Date Time Temp Pulse Resp B/P Pulse Ox O2 Delivery O2 Flow Rate FiO2 01/01/17 04:00 97.9 74 22 119/66 94 Nasal Cannula 4.00 01/01/17 03:35 95 4.00 01/01/17 00:00 96.9 80 19 110/66 96 Nasal Cannula 4.00 12/31/16 21:27 96 4.00 12/31/16 21:00 Nasal Cannula 4.00 12/31/16 20:00 97.4 75 18 120/78 98 Nasal Cannula 4.00 12/31/16 16:00 95.9 72 16 124/63 98 Nasal Cannula 4.00 12/31/16 15:55 97 4.00 12/31/16 12:00 96.9 75 20 112/75 96 Nasal Cannula 4.00 12/31/16 10:00 95 12/31/16 10:00 95 4.00 I & O 01/01/17 07:00 Intake Total 1355 ml Output Total 700 ml Balance 655 ml General Appearance: No Apparent Distress WD/WN HEENT: Other (Red ~2mm spot inferior to sclerae bilat; pt reports these have occasionally appeared ever since his cataract surgery 2 years ago) Respiratory: Chest Non Tender No Accessory Muscle Use No Respiratory Distress Decreased Breath Sounds Cardiovascular: Regular Rate, Rhythm No Edema Capillary Refill: Less Than 3 Seconds Peripheral Pulses: 1+ Radial Pulses (R), 1+ Radial Pulses (L) Gastrointestinal: normal bowel sounds soft Extremity: Pedal Edema (significantly reduced over past 48 hrs) Neurologic/Psychiatric: Alert Oriented x3 Skin: Normal Color Warm/Dry Results Lab Laboratory Tests 12/31/16 05:39 01/01/17 04:37 Assessment/Plan Assessment/Plan Bilateral pneumonia vs atelectasis - levaquin atrial fibrillation - pt converted to sinus Congestive heart failure Severe COPD -Add SVNs and advair - D/C MAT protocol - with MAT protocol pt is not on any inhalers. Hypomagnesium -replace Hypertriglyceridemia Diabetes Mellitus Clinical Quality Measures DVT/VTE Risk/Contraindication: Risk Factor Score Per Nursin RFS Level Per Nursing on Admit: 3=High AMILCAR GLASGOW DO Jan 01, 2017 08:22
[2017-01-01] MEDS: inSUlin ASPART (NovoLOG) 1 UNIT/0.01 ML (CHARGE PER UNIT) SC SCH ×3 (08:57→16:00)
[2017-01-01] MEDS: inSUlin DETERMIR 1 UNIT/0.01 ML (LEVEMIR) CHARGE PER UNIT SQ SCH ×2 (09:04→20:25)
[2017-01-01] MEDS: DULoxetine 30 MG (CYMBALTA) CAP PO SCH ×2 (09:04→20:24)
[2017-01-01] MEDS: DABIGATRAN 150 MG (PRADAXA) CAPSULE PO SCH ×2 (09:04→20:24)
[2017-01-01] MEDS: DILTIAZEM 300 MG (CARDIZEM CD) CAP PO SCH (09:04)
[2017-01-01] MEDS: KCL 20 MEQ TAB (K-DUR) PO SCH ×2 (09:05→20:23)
[2017-01-01] MEDS: metFORMIN 500 MG (GLUCOPHAGE) TAB PO SCH ×2 (09:05→20:24)
[2017-01-01] MEDS: ASPIRIN E.C. 81 MG (ECOTRIN) TAB PO SCH (09:05)
[2017-01-01] MEDS: CARVEDILOL 12.5 MG (COREG) TABLET PO SCH ×2 (09:05→20:23)
[2017-01-01] MEDS: NICOTINE PATCH REMOVAL TP SCH (09:05)
[2017-01-01] MEDS: NICOTINE 14 MG (NICODERM) PATCH TD SCH (09:05)
--- NOTE | 2017-01-01 09:11 | Progress Note (SOAP) ---
HUONG PRATT MEDICAL STUDENT 01/01/17 0910: Subjective Subjective/Events-last exam Mr. Lemons reports that his breathing continues to improve, and his abdominal pain has been stable but is a little worse this AM compared to yesterday. He has a new complaint of bilateral knee pain, and he explained that it feels like it has when he has been diagnosed with acute gout flares in the past (h/o gout flares on knees and toes). He reports that it started yesterday, but upon further clarification he feels like it actually started the day before yesterday. He has some difficulty describing why he has not been eating, but he has had decreased PO intake for the past few days. Review of Systems Cardiovascular: No: Chest Pain Gastrointestinal: : Abdominal Pain: Constipation (He estimates that he has not had a bowel movement in the past ~3-4 days despite starting Miralax yesterday)No : Nausea, Vomiting Genitourinary: No Dysuria, No Frequency, Other (Reports difficulty urinating this AM due to knee pain when he tries without assistance) Musculoskeletal: : leg pain (bilateral knee pain with motion and tenderness to palpation) Objective Exam Vital Signs Date Time Temp Pulse Resp B/P Pulse Ox O2 Delivery O2 Flow Rate FiO2 01/01/17 04:00 97.9 74 22 119/66 94 Nasal Cannula 4.00 01/01/17 03:35 95 4.00 01/01/17 00:00 96.9 80 19 110/66 96 Nasal Cannula 4.00 12/31/16 21:27 96 4.00 12/31/16 21:00 Nasal Cannula 4.00 12/31/16 20:00 97.4 75 18 120/78 98 Nasal Cannula 4.00 12/31/16 16:00 95.9 72 16 124/63 98 Nasal Cannula 4.00 12/31/16 15:55 97 4.00 12/31/16 12:00 96.9 75 20 112/75 96 Nasal Cannula 4.00 12/31/16 10:00 95 12/31/16 10:00 95 4.00 I & O 01/01/17 07:00 Intake Total 1355 ml Output Total 700 ml Balance 655 ml Capillary Refill : Less Than 3 SecondsLess Than 3 Seconds General Appearance: No Apparent Distress Other (Stable generalized pallor, dysphoric mood) Neck: No JVD Respiratory: Chest Non Tender Rhonci (bilateral, decreased from exam yesterday ) Cardiovascular: Irregularly Irregular Peripheral Pulses: 1+ Radial Pulses (R), 1+ Radial Pulses (L) Gastrointestinal: normal bowel sounds distended (some bloating (more than yesterday)) hernia Extremity: Pedal Edema (stable from exam yesterday (less than beginning of the week)) Other (bilateral knee tenderness to palpation and pain with flexion/ extension, ~5cm diameter area of erythema overlying R patella) Neurologic/Psychiatric: Depressed Affect Results Lab Laboratory Tests 12/31/16 11:31: Glucometer 131H 12/31/16 16:21: Glucometer 81 12/31/16 21:01: Glucometer 81 01/01/17 04:37: Anion Gap 12, BUN/Creatinine Ratio 15, Blood Urea Nitrogen 20H, Calcium Level 8.6, Carbon Dioxide Level 28, Chloride Level 100, Creatinine 1.32H, Estimat Glomerular Filtration Rate 56, Glucose Level 69L, Magnesium Level 1.8, Potassium Level 4.3, Sodium Level 140 Microbiology 12/28/16 Blood Culture - Preliminary, Resulted No growth Assessment/Plan Assessment/Plan Assess & Plan/Chief Complaint Medical Student Assessment & Plan Pain mgmt - On percocet 10/325 Q8H PRN for pain (2 doses in past 24 hrs) Depression - Met >5 (at least 6, possibly 7 but hx is unclear) SIGECAPS criteria - Continue Cymbalta 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, carvedilol, and dabigatran - diltiazem PO Abdominal pain - On lactobacillus acidophilus/bulgaricus probiotic - Continue nystatin suspension swish and swallow - Has had 2 doses of miralax - No bowel movements in past ~3-4 days per pt report this AM - On pantoprazole DM - Continue detemir insulin BID - Continue metformin 1000 mg BID - Will continue to monitor sugar and symptoms closely - Has had a few low blood glucose readings in past 24 hrs despite decreased insulin doses, likely due to decreased PO intake Pneumonia - No growth from blood cultures - Levaquin switched to PO Bilateral knee pain - Colchicine 1.2 mg PO today (no 2nd dose with concurrent diltiazem due to CY metabolism of both) - Continue to monitor closely - Plan for pt to follow up about this with PCP to potentially start uric acid lowering agent Disp - Continue floor status - Cardiology is following - Plan for discharge tomorrow Diagnosis/Problems: Clinical Quality Measures DVT/VTE Risk/Contraindication: Risk Factor Score Per Nursin RFS Level Per Nursing on Admit: 3=High ALYSSA BROWN MD 01/01/17 1240: Supervisory-Addendum Brief Supervisory Addendum Patient seen and evaluated by me with MS4 Huong Pratt, see my notes same day. HUONG PRATT MEDICAL STUDENT Jan 01, 2017 09:10 ALYSSA BROWN MD Jan 01, 2017 12:40
[2017-01-01] MEDS ORDERED: COLCHICINE 0.6 MG (COLCRYS) TABLET PO NR (09:45)
--- NOTE | 2017-01-01 10:07 | Progress Note-Cardiology ---
Cardiology SOAP Progress Note Subjective: Sitting up in bed. Feels breathing and abdominal discomfort is better today. C /O left great toe pain d/t gout. Feels LE edema is better today. Objective: I&O/Vital Signs Vital Sign - Last 12Hours 01/01/17 01/01/17 01/01/17 01/01/17 00:00 03:35 04:00 08:00 Temp 96.9 97.9 97.2 Pulse 80 74 81 Resp 19 22 20 B/P 110/66 119/66 141/80 Pulse Ox 96 95 94 97 O2 Delivery Nasal Cannula Nasal Cannula Nasal Cannula O2 Flow Rate 4.00 4.00 4.00 4.00 01/01/17 09:00 O2 Delivery High Flow NC O2 Flow Rate 4.00 Intake and Output 01/01/17 00:00 Intake Total 640 ml Output Total 700 ml Balance -60 ml Weight (Pounds): 238 Weight (Ounces): 0.6 Weight (Calculated Kilograms): 107.033701 Constitutional: AAO x 3 well-developed well-nourished Respiratory: No accessory muscle use, crackles (bi-basilar) wheezing ( expiratory wheezes) Cardiovascular: irregularly irregular S1 and S2 systolic murmur (faint TINY at cardiac base) Gastrointestional: No tender, soft roundNo guarding, No rebound, audible bowel sounds Extremities: No clubbing, No cyanosis, laceration (approx 1.cm superficial ulceration the mid-de [place] vega on the L (clean base); mild surrounding erythema) significant edema (1-2 (+) pedal edema - improving (L>R)) Neurologic/Psychiatric: oriented x 3 grossly intact power is 5/5 both on sides Skin: No rash, ulcerations (see under extremity exam) Results/Procedures: Labs Laboratory Tests 12/31/16 11:31: Glucometer 131H 12/31/16 16:21: Glucometer 81 12/31/16 21:01: Glucometer 81 01/01/17 04:37: Anion Gap 12, BUN/Creatinine Ratio 15, Blood Urea Nitrogen 20H, Calcium Level 8.6, Carbon Dioxide Level 28, Chloride Level 100, Creatinine 1.32H, Estimat Glomerular Filtration Rate 56, Glucose Level 69L, Magnesium Level 1.8, Potassium Level 4.3, Sodium Level 140 Microbiology 12/28/16 Blood Culture - Preliminary, Resulted No growth A/P: Assessment: Acute exac of COPD due to bilateral pneumonia (?atypical pneumonia) - medical services managing CABG 3 vessel, GUZMAN to LAD, reverse saphenous vein graft to RPDA, reverse saphenous vein graft to OM1. Bi-atrial Farley MAZE by Dr. Raman on 08-26-16 CAD and cardiomyopathy. MPI of 01/22/16 showed ischemic cm; apical infarction with only minimal fred infarct ischemia; LVEF 31%. Subsequent cardiac cath of April 29, 2016 showed moderately severe MVD, including the left main; LVEF 50%; elevated LVEDP; no significant MR. Chronic systolic and diastolic CHF - clinically improved Intermittent noncompliance with meds Paroxysmal A-fib/flutter - rate controlled Pradaxa for stroke prophylaxis HTN Echocardiogram from July 2015 at [facility] by Dr. Farley showed CM with an LVEF of 30% and diastolic dysfunction. Echocardiogram of 10-23-16 technically difficult study. LVEF 55-60%. Mild MR and TR. No evidence of significant valvular stenosis. PASP estimated to be approx 50mmHg. Mild diastolic dysfunction of LV DM Myasthenia gravis - chronic steroid therapy H/o chronic left eye droop/closure following cataract surgery in July 2015 COPD Tobaccoism - 11/17 PPD - cessation advised H/O Methamphetamine abuse - continued cessation advised Atherosclerotic plaque within the bilateral internal carotid arteries contributing to less than 50% stenosis per carotid u/s of 12-25-15 Suspected KILLIAN Chronic mild transaminase elevation, present even before statin therapy Abdominal discomfort of undetermined etiology - management per medical services Gout - treatment per medical services Plan: * Treatment of pneumonia and COPD is with the Medical Service * CHF clinically improved. We will change diuretics to oral * Monitor labs closely * Management of gout is per medical services * Management of left leg wounds is per medical services - may need to consider wound care * Cardiac status clinically improved Physician Assessment Physician Assessment Lungs: good air entry, but decreased at the bases of both lungs Cor: irreg A&R * As documented in our note above * I spoke with him and answered questions MARISA POPE Jan 01, 2017 10:07 JULIUS ALCARAZ MD FACP FAC CCDS Jan 01, 2017 10:28
[2017-01-01] MEDS: LEVOFLOXACIN 750 MG TAB (LEVAQUIN) PO SCH (10:09)
--- NOTE | 2017-01-01 10:17 | Diagnostic Imaging Report ---
INDICATION: Shortness of breath Portable chest 5:02 AM There are postop changes from CABG surgery. There is cardiomegaly. Pulmonary vascular is normal. Lungs are clear. IMPRESSION: Cardiomegaly without evidence of pulmonary venous hypertension. Improvement in the chest since the previous days' comparison study. Dictated by: Dictated on workstation # [id number]
--- NOTE | 2017-01-01 11:59 | Progress Note (SOAP) ---
Subjective Subjective/Events-last exam Afebrile. He states his knees are extremely painful which he relates to gout flare and says they started hurting a day and a half ago. He does not know what he was given in the past for his gout, but went to [facility] for it mostly. He has not been on preventive medicine that he knows of. He also states his stomach doesn't feel good. However, he denies nausea and does not describe pain either, is able only to state he doesn't feel well. Objective Exam Last Set of Vital Signs Vital Signs Date Time Temp Pulse Resp B/P Pulse Ox O2 Delivery O2 Flow Rate FiO2 01/01/17 09:00 High Flow NC 4.00 01/01/17 08:00 97.2 81 20 141/80 97 Capillary Refill : Less Than 3 SecondsLess Than 3 Seconds I&O Bad tableGeneral: Alert, No Acute Distress Lungs: Clear to Auscultation, Normal Air Movement Heart: Other (irregularly irregular) Extremities: Other (both knees with very slight erythema, no clear edema, left knee extremely tender to even light touch, unable to tolerate joint exam) Psych/Mental Status: Other (mood depressed and affect flat) Results/Procedures Lab Laboratory Tests 12/31/16 16:21: Glucometer 81 12/31/16 21:01: Glucometer 81 01/01/17 04:37: Anion Gap 12, BUN/Creatinine Ratio 15, Blood Urea Nitrogen 20H, Calcium Level 8.6, Carbon Dioxide Level 28, Chloride Level 100, Creatinine 1.32H, Estimat Glomerular Filtration Rate 56, Glucose Level 69L, Magnesium Level 1.8, Potassium Level 4.3, Sodium Level 140 Microbiology 12/28/16 Blood Culture - Preliminary, Resulted No growth Radiology NAME: RIGO MARCUS [facility] REC#: [id number] PT STATUS: ADM IN : 1960 PHYSICIAN: MICHOACANO FIORE APRN ADMIT DATE: 12/28/16/ICU Signed Date of Exam: 12/28/16 CHEST PA/LAT (2 VIEW) INDICATION: Worsening abdominal pain since yesterday. CHF. EXAMINATION: Two-view chest 12/28/2016 Comparison made with prior examination from 12/25/2016. FINDINGS: Cardio megaly noted. Pulmonary vasculature minimally prominent. Findings of edema seen throughout both lungs and stable from previous imaging. Due to patient body habitus evaluation for infiltrate is limited. However at least bibasal atelectasis is suspected. Small infiltrate difficult to exclude, correlate with symptoms. No effusions are seen. Sternotomy wires and mediastinal clips noted as well as epicardial leads present. IMPRESSION: Bibasal atelectasis versus infiltrate correlate with symptoms. Suspected mild pulmonary edema. Dictated by: Dictated on workstation # [id number] Dict: 12/28/16 1128 Trans: 12/28/16 1729 BANNER [id number] Interpreted by: RAMEZ QUINONEZ MD Electronically signed by:RAMEZ QUIONNEZ MD 12/28/16 1732 Assessment/Plan Assessment/Plan Admission Dx 1. Bilateral by basilar infiltratesmost likely pneumonia. Also in the differential is atelectasis 2. Atrial tachycardia with a history chronic atrial fibrillation 3. Nonspecific abdominal pain 4 Congestive heart failure - history of 5. COPD-history of 6. Hypertriglyceridemia 7. Diabetes Mellitus 8. Depression 9. Gout flare Plan 1. Bilateral by basilar infiltratesmost likely pneumonia. Also in the differential is atelectasis -Patient to be admitted for IV cefepime -blood culture is pending 12/29- due to recent hospitalization will treat for HAP, vanc, zosyn and cefepime. Clinically improving, continue to monitor. 12/30 - if blood cx remains negative at 48 hours will d/c vancomycin 12/31 - d/c vancomycin and cefepime as there is no growth on blood cultures and he continues to be stable/improved clinically 2. Atrial tachycardia with a history chronic atrial fibrillation -He was initiated on Cardizem drip in the ED. -cardiology consultation 12/31 transitioned to PO 3. Nonspecific abdominal pain -Continue to monitor -CT abdomen with no significant pathology 12/30 Add pantoprazole and try miralax due to constipation 12/31 Refused miralax yesterday but today again has constipation, will offer again 01/01 No BM, will increase miralax to TID 4 Congestive heart failure - history of -continue diuretic and treatment per Cardiology 12/31 per Cardiology switch to oral furosemide tomorrow 5. COPD-history of -RT, MAT protocol -Continue home inhalers (although he is refusing them inpatient) 6. Hypertriglyceridemia -continue statin 7. Diabetes Mellitus -he will be maintained on home insulin regimen 8. Depression- given his chronic pain and depression, discussed trial of cymbalta and will start inpatient although we did discuss it may take some time to note the effect 9. Gout flare- colchicine DVT prophlaxis--SCDs, on dabigatrin as home med- continued Disp- discussed his wishes with patient this am (12/29) and he stated he does not want to be intubated or have chest compressions or cardioversion if he should become more seriously ill. Will change code status to DNR per his request. Diagnosis/Problems: Clinical Quality Measures DVT/VTE Risk/Contraindication: Risk Factor Score Per Nursin RFS Level Per Nursing on Admit: 3=High ALYSSA BROWN MD Jan 01, 2017 11:59 am
[2017-01-01] MEDS: POLYETHYLENE GLYCOL 17 GM (MIRALAX) PACK PO SCH ×2 (13:00→20:23)
[2017-01-01 16:00] VITALS: BP_SYST 117; BP_SYST 138; BP_DIAS 65; BP_DIAS 71
[2017-01-01 20:00] VITALS: BP 113/68
[2017-01-01] MEDS: ATORVASTATIN 20 MG (LIPITOR) TABLET PO SCH (20:24)
[2017-01-01] MEDS: MONTELUKAST 10 MG (SINGULAIR) TAB PO SCH (20:24)
[2017-01-02 00:44] VITALS: BP 122/70
[2017-01-02] MEDS: RT-ALBUTEROL/IPRATROPIUM 3 ML (DUONEB) VIAL INH SCH ×4 (02:19→21:00)
[2017-01-02 04:00] VITALS: BP 132/67
[2017-01-02 05:20] LABS: CREATININE SERUM 1.55 MG/DL (0.60-1.30); MAGNESIUM 1.9 MG/DL (1.8-2.4); POTASSIUM 4.1 MMOL/L (3.6-5.0)
[2017-01-02] MEDS: NYSTATIN ORAL SUSP 5 ML UDC PO SCH ×5 (06:00→23:53)
[2017-01-02] MEDS: inSUlin ASPART (NovoLOG) 1 UNIT/0.01 ML (CHARGE PER UNIT) SC SCH ×3 (06:00→16:00)
[2017-01-02] MEDS: LACTOBACILLUS Acidoph/Bulgar (LACTINEX/FLORANEX) TAB PO SCH ×3 (06:00→15:29)
[2017-01-02] MEDS: PANTOPRAZOLE 40 MG (PROTONIX) TAB PO SCH (06:18)
[2017-01-02] MEDS ORDERED: TROUGH ORDER-PHARMACY XX NR (07:00)
--- NOTE | 2017-01-02 07:16 | Pulmonary Progress Note ---
Subjective Subjective/Events-last exam No complications noted. Exam Exam Vital Signs Date Time Temp Pulse Resp B/P Pulse Ox O2 Delivery O2 Flow Rate FiO2 01/02/17 00:44 97.0 78 19 122/70 99 Nasal Cannula 4.00 01/01/17 21:00 High Flow NC 4.00 01/01/17 20:00 98.0 80 16 113/68 96 Nasal Cannula 4.00 01/01/17 16:00 98.1 85 22 117/71 92 Nasal Cannula 4.00 01/01/17 12:00 82 16 94 Nasal Cannula 4.00 01/01/17 09:00 High Flow NC 4.00 01/01/17 08:00 97.2 81 20 141/80 97 Nasal Cannula 4.00 I & O 01/02/17 07:00 Intake Total 1560 ml Output Total 1550 ml Balance 10 ml General Appearance: No Apparent Distress Other (Stable generalized pallor, dysphoric mood) HEENT: Other (Red ~2mm spot inferior to sclerae bilat; pt reports these have occasionally appeared ever since his cataract surgery 2 years ago) Neck: No JVD Respiratory: Chest Non Tender Rhonci (bilateral, decreased from exam yesterday ) Cardiovascular: Irregularly Irregular Capillary Refill: Less Than 3 Seconds Peripheral Pulses: 1+ Radial Pulses (R), 1+ Radial Pulses (L) Gastrointestinal: normal bowel sounds distended (some bloating (more than yesterday)) hernia Extremity: Pedal Edema (stable from exam yesterday (less than beginning of the week)) Other (bilateral knee tenderness to palpation and pain with flexion/ extension, ~5cm diameter area of erythema overlying R patella) Neurologic/Psychiatric: Depressed Affect Skin: Normal Color Warm/Dry Results Lab Laboratory Tests 01/01/17 04:37 01/02/17 04:40 Assessment/Plan Assessment/Plan Bilateral pneumonia vs atelectasis - levaquin atrial fibrillation - pt converted to sinus Congestive heart failure Severe COPD -Add SVNs and advair - D/C MAT protocol - with MAT protocol pt is not on any inhalers. Diabetes Mellitus Pt is ok from pulmonary standpoint for discharge. Clinical Quality Measures DVT/VTE Risk/Contraindication: Risk Factor Score Per Nursin RFS Level Per Nursing on Admit: 3=High AMILCAR GLASGOW DO Jan 02, 2017 07:16
[2017-01-02 08:00] VITALS: BP 121/68
--- NOTE | 2017-01-02 08:32 | Progress Note (SOAP) ---
HUONG PRATT MEDICAL STUDENT 01/02/17 0832: Subjective Subjective/Events-last exam Mr. Lemons reports that his breathing is back to baseline, his abdominal pain has plateaued for the past ~2 days and is still worse than his baseline, and his lower extremity edema has decreased. His knee pain has decreased markedly after administration of colchicine (R has improved more than L); however, despite the improved mobility this has afforded him, he expressed concern about his ability to take care of himself as an outpatient without assistance with this acute knee pain. He has relatives that live nearby who can help him as he continues to improve. Plan to revisit his gout at outpatient follow up to have labs drawn and determine if he would benefit from a uric acid lowering agent. He reports that his mood is the same, but he is continuing to take his Cymbalta in the hope that he will experience improvement in his mood after several weeks as is how this class of medication typically works. Review of Systems General: No Chills, No Night Sweats Pulmonary: No Dyspnea, No Cough Cardiovascular: No: Chest Pain Gastrointestinal: : Abdominal PainNo: Nausea, Vomiting Genitourinary: No Dysuria Musculoskeletal: : other (knee pain (L > R), improved compared to yesterday but still [id number] and exacerbated by activity) Objective Exam Vital Signs Date Time Temp Pulse Resp B/P Pulse Ox O2 Delivery O2 Flow Rate FiO2 01/02/17 04:00 98.9 76 18 132/67 97 Nasal Cannula 4.00 01/02/17 00:44 97.0 78 19 122/70 99 Nasal Cannula 4.00 01/01/17 21:00 High Flow NC 4.00 01/01/17 20:00 98.0 80 16 113/68 96 Nasal Cannula 4.00 01/01/17 16:00 98.1 85 22 117/71 92 Nasal Cannula 4.00 01/01/17 12:00 82 16 94 Nasal Cannula 4.00 01/01/17 09:00 High Flow NC 4.00 I & O 01/02/17 07:00 Intake Total 1560 ml Output Total 1550 ml Balance 10 ml Capillary Refill : Less Than 3 SecondsLess Than 3 Seconds General Appearance: No Apparent Distress Obese Respiratory: Lungs Clear (good air movement in all lung johnson) Peripheral Pulses: 1+ Radial Pulses (R), 1+ Radial Pulses (L) Gastrointestinal: hernia other (some minimal generalized tenderness to palpation and bloating) Neurologic/Psychiatric: Alert Other (dysthymic) Skin: Pallor Results Lab Laboratory Tests 01/01/17 11:20: Glucometer 104 01/01/17 16:01: Glucometer 86 01/01/17 20:58: Glucometer 131H 01/02/17 04:40: Anion Gap 12, BUN/Creatinine Ratio 13, Blood Urea Nitrogen 20H, Calcium Level 9.0, Carbon Dioxide Level 27, Chloride Level 100, Creatinine 1.55H, Estimat Glomerular Filtration Rate 47, Glucose Level 70, Magnesium Level 1.9, Potassium Level 4.1, Sodium Level 139 01/02/17 07:15: Vancomycin Level Trough 8.8L Microbiology 12/28/16 Blood Culture - Preliminary, Resulted No growth Assessment/Plan Assessment/Plan Assess & Plan/Chief Complaint Medical Student Assessment & Plan Pain mgmt - On percocet 10/325 Q8H PRN for pain Depression - Met >5 (at least 6, possibly 7 but hx is unclear) SIGECAPS criteria - Continue Cymbalta Arrhythmia - [employer] lipitor, carvedilol, and dabigatran - diltiazem PO Abdominal pain - On lactobacillus acidophilus/bulgaricus probiotic - Continue nystatin suspension swish and swallow - Continue miralax TID - Continue pantoprazole DM - Continue detemir insulin BID - Continue metformin 1000 mg BID - Will continue to monitor sugar and symptoms closely - Has had a few low blood glucose readings in past 24 hrs despite decreased insulin doses, likely due to decreased PO intake Pneumonia - No growth from blood cultures - Continue PO Levaquin Bilateral knee pain - Colchicine 1.2 mg PO yesterday (no 2nd dose with concurrent diltiazem due to CY metabolism of both) - He reports that his pain has decreased considerably, but his mobility is slower with his knee pain - We will re-evaluate later this morning, but he is open to discharge to home today - Plan for pt to follow up about this with PCP to potentially start uric acid lowering agent Disp - Plan for discharge to home today Diagnosis/Problems: Clinical Quality Measures DVT/VTE Risk/Contraindication: Risk Factor Score Per Nursin RFS Level Per Nursing on Admit: 3=High ALYSSA BROWN MD 01/02/17 6844: Supervisory-Addendum Brief Supervisory Addendum I personally interviewed and examined the patient, please see my notes for documentation HUONG PRATT MEDICAL STUDENT Jan 02, 2017 08:32 ALYSSA BROWN MD Jan 02, 2017 16:44
[2017-01-02] MEDS: KCL 20 MEQ TAB (K-DUR) PO SCH ×2 (09:00→20:28)
[2017-01-02] MEDS: DILTIAZEM 300 MG (CARDIZEM CD) CAP PO SCH (09:03)
[2017-01-02] MEDS: NICOTINE 14 MG (NICODERM) PATCH TD SCH (09:03)
[2017-01-02] MEDS: POLYETHYLENE GLYCOL 17 GM (MIRALAX) PACK PO SCH ×3 (09:03→20:29)
[2017-01-02] MEDS: NICOTINE PATCH REMOVAL TP SCH (09:03)
[2017-01-02] MEDS: oxyCODONE/APAP 10/325MG (PERCOCET 10) TABLET PO PRN ×2 (09:03→17:36)
[2017-01-02] MEDS: DULoxetine 30 MG (CYMBALTA) CAP PO SCH ×2 (09:03→20:29)
[2017-01-02] MEDS: CARVEDILOL 12.5 MG (COREG) TABLET PO SCH ×2 (09:04→20:27)
[2017-01-02] MEDS: FUROSEMIDE 40 MG (LASIX) TAB PO SCH (09:04)
[2017-01-02] MEDS: metFORMIN 500 MG (GLUCOPHAGE) TAB PO SCH ×2 (09:04→20:28)
[2017-01-02] MEDS: DABIGATRAN 150 MG (PRADAXA) CAPSULE PO SCH ×2 (09:04→20:27)
[2017-01-02] MEDS: ASPIRIN E.C. 81 MG (ECOTRIN) TAB PO SCH (09:04)
[2017-01-02] MEDS: inSUlin DETERMIR 1 UNIT/0.01 ML (LEVEMIR) CHARGE PER UNIT SQ SCH ×2 (09:05→20:37)
[2017-01-02] MEDS: UMECLIDINIUM BROMIDE (INCRUSE ELLIPTA) 7'S IH SCH (09:14)
[2017-01-02] MEDS: RT-ADVAIR HFA 115/21 MCG PER PUFF IH SCH ×2 (09:14→21:10)
[2017-01-02] MEDS: LEVOFLOXACIN 750 MG TAB (LEVAQUIN) PO SCH (10:57)
[2017-01-02 12:00] VITALS: BP 103/57
[2017-01-02] MEDS ORDERED: BISACODYL 10 MG SUPP (DULCOLAX) PR NR (12:30)
--- NOTE | 2017-01-02 14:40 | Progress Note-Cardiology ---
Cardiology SOAP Progress Note Subjective: Sitting up in a chair at the bedside. Feels breathing is back to baseline. Continues to c/o abdominal discomfort. Continues to c/o left knee and great toe pain. No c/o CP, palpitations. Objective: I&O/Vital Signs Vital Sign - Last 12Hours 01/02/17 01/02/17 01/02/17 01/02/17 04:00 08:00 09:00 09:14 Temp 98.9 97.9 Pulse 76 77 Resp 18 16 B/P 132/67 121/68 Pulse Ox 97 94 92 O2 Delivery Nasal Cannula Nasal Cannula High Flow NC O2 Flow Rate 4.00 2.00 4.00 4.00 01/02/17 12:00 Temp 96.7 Pulse 137 Resp 20 B/P 103/57 Pulse Ox 83 O2 Delivery Nasal Cannula O2 Flow Rate 2.00 Intake and Output 01/02/17 00:00 Intake Total 1200 ml Output Total 1150 ml Balance 50 ml Weight (Pounds): 235 Weight (Ounces): 8.0 Weight (Calculated Kilograms): 106.084698 Constitutional: AAO x 3 well-developed well-nourished Respiratory: No accessory muscle use, crackles (bi-basilar) wheezing ( expiratory wheezes) Cardiovascular: irregularly irregular S1 and S2 systolic murmur (faint TINY at cardiac base) Gastrointestional: No tender, soft roundNo guarding, No rebound, audible bowel sounds Extremities: No clubbing, No cyanosis, laceration (approx 1.cm superficial ulceration the mid-de [place] vega on the L (clean base); mild surrounding erythema) significant edema (1-2 (+) pedal edema - improving (R>L)) Neurologic/Psychiatric: oriented x 3 grossly intact power is 5/5 both on sides Skin: No rash, ulcerations (see under extremity exam) Results/Procedures: Labs Laboratory Tests 01/01/17 16:01: Glucometer 86 01/01/17 20:58: Glucometer 131H 01/02/17 04:40: Anion Gap 12, BUN/Creatinine Ratio 13, Blood Urea Nitrogen 20H, Calcium Level 9.0, Carbon Dioxide Level 27, Chloride Level 100, Creatinine 1.55H, Estimat Glomerular Filtration Rate 47, Glucose Level 70, Magnesium Level 1.9, Potassium Level 4.1, Sodium Level 139 01/02/17 07:15: Vancomycin Level Trough 8.8L 01/02/17 11:56: Glucometer 115H Microbiology 12/28/16 Blood Culture - Preliminary, Resulted No growth A/P: Assessment: Acute exac of COPD due to bilateral pneumonia (?atypical pneumonia) - medical services managing CABG 3 vessel, GUZMAN to LAD, reverse saphenous vein graft to RPDA, reverse saphenous vein graft to OM1. Bi-atrial Farley MAZE by Dr. Raman on 08-26-16 CAD and cardiomyopathy. MPI of 01/22/16 showed ischemic cm; apical infarction with only minimal fred infarct ischemia; LVEF 31%. Subsequent cardiac cath of April 29, 2016 showed moderately severe MVD, including the left main; LVEF 50%; elevated LVEDP; no significant MR. Chronic systolic and diastolic CHF - clinically improved Intermittent noncompliance with meds Paroxysmal A-fib/flutter - rate controlled Pradaxa for stroke prophylaxis HTN Echocardiogram from July 2015 at [facility] by Dr. Farley showed CM with an LVEF of 30% and diastolic dysfunction. Echocardiogram of 10-23-16 technically difficult study. LVEF 55-60%. Mild MR and TR. No evidence of significant valvular stenosis. PASP estimated to be approx 50mmHg. Mild diastolic dysfunction of LV DM Myasthenia gravis - chronic steroid therapy H/o chronic left eye droop/closure following cataract surgery in July 2015 COPD Tobaccoism - /2 PPD - cessation advised H/O Methamphetamine abuse - continued cessation advised Atherosclerotic plaque within the bilateral internal carotid arteries contributing to less than 50% stenosis per carotid u/s of 12-25-15 Suspected KILLIAN Chronic mild transaminase elevation, present even before statin therapy Abdominal discomfort of undetermined etiology - management per medical services Gout - treatment per medical services Plan: * Treatment of pneumonia and COPD is with the Medical Service * CHF clinically improved * Monitor labs closely * Management of gout is per medical services * Management of left leg wounds is per medical services - may need to consider wound care * Cardiac status clinically stable for discharge with outpt f/u appt Physician Assessment Physician Assessment Lungs: coarse basal crackles Cor: reg A&R * As documented in our note above MARISA POPE LOG CHAIN FEEDER Jan 02, 2017 14:39 JULIUS ALCARAZ MD FACP FAC CCDS Jan 02, 2017 15:52
--- NOTE | 2017-01-02 15:48 | Progress Note (SOAP) ---
Subjective Subjective/Events-last exam Afebrile. He states his knees are still hurting and his stomach still hurts. He has still not had a bowel movement. Date seen by provider: Jan 02, 2017 Time seen by provider: 11:15 Objective Exam Last Set of Vital Signs Vital Signs Date Time Temp Pulse Resp B/P Pulse Ox O2 Delivery O2 Flow Rate FiO2 01/02/17 12:00 96.7 137 20 103/57 83 Nasal Cannula 2.00 Capillary Refill : Less Than 3 SecondsLess Than 3 Seconds I&O Intake and Output 01/02/17 00:00 Intake Total 1400 ml Output Total 1150 ml Balance 250 ml Intake Oral 1400 ml Output Urine Total 1150 ml # Voids 1 General: Alert, No Acute Distress Lungs: Clear to Auscultation, Normal Air Movement Heart: Other (irregularly irregular) Abdomen: Normal Bowel Sounds, No Tenderness, Other (mild distention) Neuro: Normal Speech Psych/Mental Status: Other (mood depressed, affect flat) Results/Procedures Lab Laboratory Tests 01/01/17 16:01: Glucometer 86 01/01/17 20:58: Glucometer 131H 01/02/17 04:40: Anion Gap 12, BUN/Creatinine Ratio 13, Blood Urea Nitrogen 20H, Calcium Level 9.0, Carbon Dioxide Level 27, Chloride Level 100, Creatinine 1.55H, Estimat Glomerular Filtration Rate 47, Glucose Level 70, Magnesium Level 1.9, Potassium Level 4.1, Sodium Level 139 01/02/17 07:15: Vancomycin Level Trough 8.8L 01/02/17 11:56: Glucometer 115H Microbiology 12/28/16 Blood Culture - Preliminary, Resulted No growth Radiology NAME: RIGO MARCUS [facility] REC#: [id number] PT STATUS: ADM IN : 1960 PHYSICIAN: MICHOACANO FIORE APRN ADMIT DATE: 12/28/16/ICU Signed Date of Exam: 12/28/16 CHEST PA/LAT (2 VIEW) INDICATION: Worsening abdominal pain since yesterday. CHF. EXAMINATION: Two-view chest 12/28/2016 Comparison made with prior examination from 12/25/2016. FINDINGS: Cardio megaly noted. Pulmonary vasculature minimally prominent. Findings of edema seen throughout both lungs and stable from previous imaging. Due to patient body habitus evaluation for infiltrate is limited. However at least bibasal atelectasis is suspected. Small infiltrate difficult to exclude, correlate with symptoms. No effusions are seen. Sternotomy wires and mediastinal clips noted as well as epicardial leads present. IMPRESSION: Bibasal atelectasis versus infiltrate correlate with symptoms. Suspected mild pulmonary edema. Dictated by: Dictated on workstation # [id number] Dict: 12/28/16 1128 Trans: 12/28/[address] [facility] [id number] Interpreted by: RAMEZ QUINONEZ MD Electronically signed by:RAMEZ QUINONEZ MD 12/28/16 1739 Assessment/Plan Assessment/Plan Admission Dx 1. Bilateral by basilar infiltratesmost likely pneumonia. Also in the differential is atelectasis 2. Atrial tachycardia with a history chronic atrial fibrillation 3. Nonspecific abdominal pain 4 Congestive heart failure - history of 5. COPD-history of 6. Hypertriglyceridemia 7. Diabetes Mellitus 8. Depression 9. Gout flare Plan 1. Bilateral by basilar infiltratesmost likely pneumonia. Also in the differential is atelectasis -Patient to be admitted for IV cefepime -blood culture is pending 12/29- due to recent hospitalization will treat for HAP, vanc, zosyn and cefepime. Clinically improving, continue to monitor. 12/30 - if blood cx remains negative at 48 hours will d/c vancomycin 12/31 - d/c vancomycin and cefepime as there is no growth on blood cultures and he continues to be stable/improved clinically 2. Atrial tachycardia with a history chronic atrial fibrillation -He was initiated on Cardizem drip in the ED. -cardiology consultation 12/31 transitioned to PO 3. Nonspecific abdominal pain -Continue to monitor -CT abdomen with no significant pathology 12/30 Add pantoprazole and try miralax due to constipation 12/31 Refused miralax yesterday but today again has constipation, will offer again 01/01 No BM, will increase miralax to TID 01/02 still no BM, try dulcolax suppository and add senna-s BID to miralax 4 Congestive heart failure - history of -continue diuretic and treatment per Cardiology 12/31 per Cardiology switch to oral furosemide tomorrow 5. COPD-history of -RT, MAT protocol -Continue home inhalers (although he is refusing them inpatient) 6. Hypertriglyceridemia -continue statin 7. Diabetes Mellitus -he will be maintained on home insulin regimen 8. Depression- given his chronic pain and depression, discussed trial of cymbalta and will start inpatient although we did discuss it may take some time to note the effect 9. Gout flare- colchicine 10. Acute renal insufficiency- suspect due to increased furosemide dosage and poor intake 01/02 Improved oral intake and furosemide has been changed back to oral, monitor DVT prophlaxis--SCDs, on dabigatrin as home med- continued Disp- discussed his wishes with patient this am (12/29) and he stated he does not want to be intubated or have chest compressions or cardioversion if he should become more seriously ill. Will change code status to DNR per his request. Diagnosis/Problems: Clinical Quality Measures DVT/VTE Risk/Contraindication: Risk Factor Score Per Nursin RFS Level Per Nursing on Admit: 3=High ALYSSA BROWN MD Jan 02, 2017 3:48 pm
[2017-01-02 16:00] VITALS: BP 107/71
[2017-01-02 20:00] VITALS: BP 108/69
[2017-01-02] MEDS: SENNA W/DOCUSATE (SENOKOT S) TABLET PO SCH (20:27)
[2017-01-02] MEDS: MONTELUKAST 10 MG (SINGULAIR) TAB PO SCH (20:28)
[2017-01-02] MEDS: ATORVASTATIN 20 MG (LIPITOR) TABLET PO SCH (20:29)
[2017-01-03] VITALS: BP 124/79
[2017-01-03] MEDS: RT-ALBUTEROL/IPRATROPIUM 3 ML (DUONEB) VIAL INH SCH ×4 (02:22→19:20)
[2017-01-03 04:00] VITALS: BP 115/74
[2017-01-03 04:34] LABS: MEAN PLATELET VOLUME 9.8 FL (7.4-10.4); RED BLOOD COUNT 3.95 10^6/uL (4.35-5.85); RED CELL DISTRIBUTION WIDTH 16.9 % (10.0-14.5); WHITE BLOOD COUNT 11.6 10^3/uL (4.3-11.0)
[2017-01-03 05:03] LABS: CREATININE SERUM 1.76 MG/DL (0.60-1.30); POTASSIUM 3.9 MMOL/L (3.6-5.0)
[2017-01-03] MEDS: inSUlin ASPART (NovoLOG) 1 UNIT/0.01 ML (CHARGE PER UNIT) SC SCH ×3 (05:34→16:00)
[2017-01-03] MEDS: NYSTATIN ORAL SUSP 5 ML UDC PO SCH ×4 (05:40→23:38)
[2017-01-03] MEDS: PANTOPRAZOLE 40 MG (PROTONIX) TAB PO SCH (05:40)
[2017-01-03] MEDS: LACTOBACILLUS Acidoph/Bulgar (LACTINEX/FLORANEX) TAB PO SCH ×3 (05:40→16:00)
[2017-01-03 08:00] VITALS: BP 134/85
[2017-01-03] MEDS: inSUlin DETERMIR 1 UNIT/0.01 ML (LEVEMIR) CHARGE PER UNIT SQ SCH ×2 (09:56→21:22)
[2017-01-03] MEDS: NICOTINE 14 MG (NICODERM) PATCH TD SCH (09:57)
[2017-01-03] MEDS: NICOTINE PATCH REMOVAL TP SCH (09:57)
[2017-01-03] MEDS: KCL 20 MEQ TAB (K-DUR) PO SCH ×2 (10:00→21:00)
[2017-01-03] MEDS: DULoxetine 30 MG (CYMBALTA) CAP PO SCH ×2 (10:00→21:21)
[2017-01-03] MEDS: FUROSEMIDE 40 MG (LASIX) TAB PO SCH (10:00)
[2017-01-03] MEDS: DABIGATRAN 150 MG (PRADAXA) CAPSULE PO SCH ×2 (10:00→21:21)
[2017-01-03] MEDS: ASPIRIN E.C. 81 MG (ECOTRIN) TAB PO SCH (10:00)
[2017-01-03] MEDS: DILTIAZEM 300 MG (CARDIZEM CD) CAP PO SCH (10:00)
[2017-01-03] MEDS: SENNA W/DOCUSATE (SENOKOT S) TABLET PO SCH ×2 (10:00→21:00)
[2017-01-03] MEDS: CARVEDILOL 12.5 MG (COREG) TABLET PO SCH ×2 (10:00→21:21)
[2017-01-03] MEDS: POLYETHYLENE GLYCOL 17 GM (MIRALAX) PACK PO SCH ×3 (10:00→21:00)
[2017-01-03] MEDS: UMECLIDINIUM BROMIDE (INCRUSE ELLIPTA) 7'S IH SCH (10:02)
[2017-01-03] MEDS: RT-ADVAIR HFA 115/21 MCG PER PUFF IH SCH ×2 (10:02→19:19)
[2017-01-03] MEDS ORDERED: NS (IVPB) 250 ML IV ONE (10:30)
--- NOTE | 2017-01-03 11:08 | Progress Note (SOAP) ---
Subjective Subjective/Events-last exam Afebrile, no acute events. He did not want to take most of his evening or morning medications, he states they make his stomach hurt. He does say his knees are feeling better. Objective Exam Last Set of Vital Signs Vital Signs Date Time Temp Pulse Resp B/P Pulse Ox O2 Delivery O2 Flow Rate FiO2 01/03/17 10:00 96 4.00 01/03/17 08:00 98.2 80 18 134/85 Nasal Cannula Capillary Refill : Less Than 3 SecondsLess Than 3 Seconds I&O Intake and Output 01/03/17 00:00 Intake Total 1360 ml Output Total 890 ml Balance 470 ml Intake Oral 1360 ml Output Urine Total 890 ml # Voids 1 General: Alert, No Acute Distress Lungs: Clear to Auscultation, Normal Air Movement Heart: Other (irregularly irregular) Abdomen: Normal Bowel Sounds, No Tenderness, Other (distended) Psych/Mental Status: Other (mood depressed, affect flat) Results/Procedures Lab Laboratory Tests 01/02/17 11:56: Glucometer 115H 01/02/17 15:40: Glucometer 101 01/02/17 20:52: Glucometer 80 01/03/17 04:00: Anion Gap 16H, BUN/Creatinine Ratio 12, Blood Urea Nitrogen 21H, Calcium Level 9.0, Carbon Dioxide Level 24, Chloride Level 99, Creatinine 1.76H, Estimat Glomerular Filtration Rate 40, Glucose Level 68L, Potassium Level 3.9, Sodium Level 139 01/03/17 04:20: Hematocrit 34L, Hemoglobin 11.2L, Mean Corpuscular Hemoglobin 28, Mean Corpuscular Hemoglobin Concent 33, Mean Corpuscular Volume 87, Mean Platelet Volume 9.8, Platelet Count 231, Red Blood Count 3.95L, Red Cell Distribution Width 16.9H, White Blood Count 11.6H Microbiology 12/28/16 Blood Culture - Preliminary, Resulted No growth Radiology NAME: RIGO MARCUS [facility] REC#: [id number] PT STATUS: ADM IN : 1960 PHYSICIAN: MICHOACANO FIORE APRN ADMIT DATE: 12/28/16/ICU Signed Date of Exam: 12/28/16 CHEST PA/LAT (2 VIEW) INDICATION: Worsening abdominal pain since yesterday. CHF. EXAMINATION: Two-view chest 12/28/2016 Comparison made with prior examination from 12/25/2016. FINDINGS: Cardio megaly noted. Pulmonary vasculature minimally prominent. Findings of edema seen throughout both lungs and stable from previous imaging. Due to patient body habitus evaluation for infiltrate is limited. However at least bibasal atelectasis is suspected. Small infiltrate difficult to exclude, correlate with symptoms. No effusions are seen. Sternotomy wires and mediastinal clips noted as well as epicardial leads present. IMPRESSION: Bibasal atelectasis versus infiltrate correlate with symptoms. Suspected mild pulmonary edema. Dictated by: Dictated on workstation # [id number] Dict: 12/28/16 1128 Trans: 12/28/16 1729 [facility] [id number] Interpreted by: RAMEZ QUINONEZ MD Electronically signed by:RAMEZ QUINONEZ MD 12/28/16 6715 Assessment/Plan Assessment/Plan Admission Dx 1. Bilateral by basilar infiltratesmost likely pneumonia. Also in the differential is atelectasis 2. Atrial tachycardia with a history chronic atrial fibrillation 3. Nonspecific abdominal pain 4 Congestive heart failure - history of 5. COPD-history of 6. Hypertriglyceridemia 7. Diabetes Mellitus 8. Depression 9. Gout flare Plan 1. Bilateral by basilar infiltratesmost likely pneumonia. Also in the differential is atelectasis -Patient to be admitted for IV cefepime -blood culture is pending 12/29- due to recent hospitalization will treat for HAP, vanc, zosyn and cefepime. Clinically improving, continue to monitor. 12/30 - if blood cx remains negative at 48 hours will d/c vancomycin 12/31 - d/c vancomycin and cefepime as there is no growth on blood cultures and he continues to be stable/improved clinically 2. Atrial tachycardia with a history chronic atrial fibrillation -He was initiated on Cardizem drip in the ED. -cardiology consultation 12/31 transitioned to PO 3. Nonspecific abdominal pain -Continue to monitor -CT abdomen with no significant pathology 12/30 Add pantoprazole and try miralax due to constipation 12/31 Refused miralax yesterday but today again has constipation, will offer again 01/01 No BM, will increase miralax to TID 01/02 still no BM, try dulcolax suppository and add senna-s BID to miralax 01/03 did not want suppository, will check abd x-ray, consider mag citrate 4 Congestive heart failure - history of -continue diuretic and treatment per Cardiology 12/31 per Cardiology switch to oral furosemide tomorrow 01/03 hold lasix today due to his renal insufficiency 5. COPD-history of -RT, MAT protocol -Continue home inhalers (although he is refusing them inpatient) 6. Hypertriglyceridemia -continue statin 7. Diabetes Mellitus -he will be maintained on home insulin regimen 01/03 stop metformin due to renal function 8. Depression- given his chronic pain and depression, discussed trial of cymbalta and will start inpatient although we did discuss it may take some time to note the effect 9. Gout flare- colchicine 10. Acute renal insufficiency- suspect due to increased furosemide dosage and poor intake 01/02 Improved oral intake and furosemide has been changed back to oral, monitor 01/03 Worsening, check UA and hold furosemide and metformin and give 250 cc bolus DVT prophlaxis--SCDs, on dabigatrin as home med- continued Disp- discussed his wishes with patient this am (12/29) and he stated he does not want to be intubated or have chest compressions or cardioversion if he should become more seriously ill. Will change code status to DNR per his request. 01/03 Discussed his not wanting to take medications. He has considered hospice in the past and is still somewhat interested in that. He admits he is near the point of not being able to take care of himself at home and doesn't have help. When asked if he would consider alf, he says he would like to discuss with his children but has a hard time getting them to come. Diagnosis/Problems: Clinical Quality Measures DVT/VTE Risk/Contraindication: Risk Factor Score Per Nursin RFS Level Per Nursing on Admit: 3=High ALYSSA BROWN MD Jan 03, 2017 11:08 am
[2017-01-03 12:00] VITALS: BP 125/84
[2017-01-03] MEDS: LEVOFLOXACIN 750 MG TAB (LEVAQUIN) PO SCH (12:00)
--- NOTE | 2017-01-03 12:20 | Progress Note-Cardiology ---
Cardiology SOAP Progress Note Subjective: Shortness of breath slowly improving No cp or palp or syncope Objective: I&O/Vital Signs Vital Sign - Last 12Hours 01/03/17 01/03/17 01/03/17 01/03/17 04:00 08:00 10:00 10:00 Temp 96.4 98.2 Pulse 60 80 Resp 20 18 B/P 115/74 134/85 Pulse Ox 94 96 96 96 O2 Delivery Nasal Cannula Nasal Cannula O2 Flow Rate 4.00 4.00 4.00 Intake and Output 01/03/17 00:00 Intake Total 1000 ml Output Total 490 ml Balance 510 ml Weight (Pounds): 228 Weight (Ounces): 8.0 Weight (Calculated Kilograms): 103.789443 Constitutional: AAO x 3 well-developed well-nourished Respiratory: No accessory muscle use, crackles (bi-basilar) wheezing ( expiratory wheezes) Cardiovascular: irregularly irregular S1 and S2 systolic murmur (faint TINY at cardiac base) Gastrointestional: No tender, soft roundNo guarding, No rebound, audible bowel sounds Extremities: No clubbing, No cyanosis, laceration (approx 1.cm superficial ulceration the mid-de [place] vega on the L (clean base); mild surrounding erythema) significant edema (mild leg edema, much improved compared to time of admission) Neurologic/Psychiatric: oriented x 3 grossly intact power is 5/5 both on sides Skin: No rash, ulcerations (see under extremity exam) Results/Procedures: Labs Laboratory Tests 01/02/17 15:40: Glucometer 101 01/02/17 20:52: Glucometer 80 01/03/17 04:00: Anion Gap 16H, BUN/Creatinine Ratio 12, Blood Urea Nitrogen 21H, Calcium Level 9.0, Carbon Dioxide Level 24, Chloride Level 99, Creatinine 1.76H, Estimat Glomerular Filtration Rate 40, Glucose Level 68L, Potassium Level 3.9, Sodium Level 139 01/03/17 04:20: Hematocrit 34L, Hemoglobin 11.2L, Mean Corpuscular Hemoglobin 28, Mean Corpuscular Hemoglobin Concent 33, Mean Corpuscular Volume 87, Mean Platelet Volume 9.8, Platelet Count 231, Red Blood Count 3.95L, Red Cell Distribution Width 16.9H, White Blood Count 11.6H Microbiology 12/28/16 Blood Culture - Preliminary, Resulted No growth Laboratory Tests 01/02/17 04:40 01/03/17 04:00 01/03/17 04:20 A/P: Assessment: Acute exac of COPD due to bilateral pneumonia (?atypical pneumonia) - medical services managing CABG 3 vessel, GUZMAN to LAD, reverse saphenous vein graft to RPDA, reverse saphenous vein graft to OM1. Bi-atrial Farley MAZE by Dr. Raman on 08-26-16 CAD and cardiomyopathy. MPI of 01/22/16 showed ischemic cm; apical infarction with only minimal fred infarct ischemia; LVEF 31%. Subsequent cardiac cath of April 29, 2016 showed moderately severe MVD, including the left main; LVEF 50%; elevated LVEDP; no significant MR. Chronic systolic and diastolic CHF - clinically improved Acute renal insuff, likely related to diuretic therapy Intermittent noncompliance with meds Paroxysmal A-fib/flutter - rate controlled Pradaxa for stroke prophylaxis HTN Echocardiogram from July 2015 at [facility] by Dr. Farley showed CM with an LVEF of 30% and diastolic dysfunction. Echocardiogram of 10-23-16 technically difficult study. LVEF 55-60%. Mild MR and TR. No evidence of significant valvular stenosis. PASP estimated to be approx 50mmHg. Mild diastolic dysfunction of LV DM Myasthenia gravis - chronic steroid therapy H/o chronic left eye droop/closure following cataract surgery in July 2015 COPD Tobaccoism - / PPD - cessation advised H/O Methamphetamine abuse - continued cessation advised Atherosclerotic plaque within the bilateral internal carotid arteries contributing to less than 50% stenosis per carotid u/s of 12-25-15 Suspected KILLIAN Chronic mild transaminase elevation, present even before statin therapy Abdominal discomfort of undetermined etiology - management per medical services Gout - treatment per medical services Plan: * Treatment of pneumonia and COPD is with the Medical Service * CHF clinically improved * Monitor labs closely. F/u on renal function * Management of gout is per medical services * Management of left leg wounds is per medical services - may need to consider wound care * Cardiac status clinically stable for discharge with outpt f/u appt JULIUS ALCARAZ MD FACP FAC CCDS Jan 03, 2017 12:20
[2017-01-03] MEDS: oxyCODONE/APAP 10/325MG (PERCOCET 10) TABLET PO PRN (13:05)
[2017-01-03 16:00] VITALS: BP 123/91
--- NOTE | 2017-01-03 16:13 | Diagnostic Imaging Report ---
INDICATION: Constipation. COMPARISON: CT abdomen and pelvis of 12/28/2016. FINDINGS: Nonobstructive bowel gas pattern. There is a small volume of colonic stool present. No evidence of free intraperitoneal air. Retained pacemaker epicardial leads are seen in the upper epigastric region. Degenerative changes at the lumbosacral junction. IMPRESSION: 1. Small volume of colonic stool. 2. Nonobstructive bowel gas pattern. Dictated by: Dictated on workstation # [id number]
[2017-01-03 19:28] LABS: KETONES,URINE 2+ (NEGATIVE); LEUKOCYTE ESTERASE ,URINE 1+ (NEGATIVE); NITRITE,URINE NEGATIVE (NEGATIVE); PH,URINE 6.5 (5-9); PROTEIN,URINE 1+ (NEGATIVE); UROBILINOGEN,URINE 1 MG/DL (NORMAL)
[2017-01-03 19:41] LABS: BILIRUBIN,URINE 1+ (NEGATIVE)
[2017-01-03] MEDS: ATORVASTATIN 20 MG (LIPITOR) TABLET PO SCH (21:00)
[2017-01-03] MEDS: MONTELUKAST 10 MG (SINGULAIR) TAB PO SCH (21:21)
[2017-01-04] VITALS: BP 118/82
[2017-01-04] MEDS: oxyCODONE/APAP 10/325MG (PERCOCET 10) TABLET PO PRN ×2 (01:23→17:12)
[2017-01-04] MEDS: PANTOPRAZOLE 40 MG (PROTONIX) TAB PO SCH (01:23)
[2017-01-04] MEDS: NYSTATIN ORAL SUSP 5 ML UDC PO SCH ×4 (06:00→16:33)
[2017-01-04] MEDS: inSUlin ASPART (NovoLOG) 1 UNIT/0.01 ML (CHARGE PER UNIT) SC SCH ×3 (06:00→16:00)
[2017-01-04] MEDS: LACTOBACILLUS Acidoph/Bulgar (LACTINEX/FLORANEX) TAB PO SCH ×3 (06:00→16:00)
[2017-01-04 06:05] LABS: CALCIUM 9.1 MG/DL (8.5-10.1); CREATININE SERUM 1.59 MG/DL (0.60-1.30); MAGNESIUM 1.9 MG/DL (1.8-2.4); POTASSIUM 3.8 MMOL/L (3.6-5.0)
[2017-01-04] MEDS: RT-ADVAIR HFA 115/21 MCG PER PUFF IH SCH ×2 (07:02→18:46)
[2017-01-04] MEDS: UMECLIDINIUM BROMIDE (INCRUSE ELLIPTA) 7'S IH SCH (07:02)
[2017-01-04] MEDS: RT-ALBUTEROL/IPRATROPIUM 3 ML (DUONEB) VIAL INH SCH ×3 (07:03→18:46)
[2017-01-04 08:47] VITALS: BP 101/70
[2017-01-04] MEDS: NICOTINE 14 MG (NICODERM) PATCH TD SCH (09:00)
[2017-01-04] MEDS: DILTIAZEM 300 MG (CARDIZEM CD) CAP PO SCH (09:57)
[2017-01-04] MEDS: ASPIRIN E.C. 81 MG (ECOTRIN) TAB PO SCH (09:57)
[2017-01-04] MEDS: inSUlin DETERMIR 1 UNIT/0.01 ML (LEVEMIR) CHARGE PER UNIT SQ SCH ×2 (09:57→22:03)
[2017-01-04] MEDS: DULoxetine 30 MG (CYMBALTA) CAP PO SCH ×2 (09:58→22:03)
[2017-01-04] MEDS: SENNA W/DOCUSATE (SENOKOT S) TABLET PO SCH ×2 (09:58→22:08)
[2017-01-04] MEDS: FUROSEMIDE 40 MG (LASIX) TAB PO SCH (09:58)
[2017-01-04] MEDS: CARVEDILOL 12.5 MG (COREG) TABLET PO SCH ×2 (09:58→22:03)
[2017-01-04] MEDS: KCL 20 MEQ TAB (K-DUR) PO SCH ×2 (09:58→22:07)
[2017-01-04] MEDS: NICOTINE PATCH REMOVAL TP SCH (09:59)
[2017-01-04] MEDS: POLYETHYLENE GLYCOL 17 GM (MIRALAX) PACK PO SCH ×3 (09:59→22:08)
[2017-01-04] MEDS: DABIGATRAN 150 MG (PRADAXA) CAPSULE PO SCH ×2 (10:06→22:03)
--- NOTE | 2017-01-04 13:32 | Progress Note-Cardiology ---
Cardiology SOAP Progress Note Subjective: Reports less shortness of breath and less swelling Denies cp or palp or syncope Objective: I&O/Vital Signs Vital Sign - Last 12Hours 01/04/17 01/04/17 01/04/17 07:05 08:00 08:47 Temp 96.9 Pulse 79 Resp 20 B/P 101/70 Pulse Ox 96 95 O2 Delivery High Flow NC Nasal Cannula O2 Flow Rate 2.00 4.00 2.00 Intake and Output 01/04/17 00:00 Intake Total 672 ml Output Total 525 ml Balance 147 ml Weight (Pounds): 230 Weight (Ounces): 8.0 Weight (Calculated Kilograms): 104.019930 Constitutional: AAO x 3 well-developed well-nourished Respiratory: No accessory muscle use, crackles (bi-basilar) wheezing ( expiratory wheezes) Cardiovascular: irregularly irregular S1 and S2 systolic murmur (faint TINY at cardiac base) Gastrointestional: No tender, soft roundNo guarding, No rebound, audible bowel sounds Extremities: No clubbing, No cyanosis, laceration (approx 1.cm superficial ulceration the mid-de la vega on the L (clean base); mild surrounding erythema) significant edema (mild leg edema, much improved compared to time of admission) Neurologic/Psychiatric: oriented x 3 grossly intact power is 5/5 both on sides Skin: No rash, ulcerations (see under extremity exam) Results/Procedures: Labs Laboratory Tests 01/03/17 15:53: Glucometer 97 01/03/17 18:35: Urine Bacteria NEGATIVE, Urine Bilirubin 1+H, Urine Casts PRESENT, Urine Clarity CLEAR, Urine Color AMBERH, Urine Crystals NONE, Urine Culture Indicated NO, Urine Glucose (UA) NEGATIVE, Urine Hyaline Casts 10-25H, Urine Ketones 2+H, Urine Leukocyte Esterase 1+H, Urine Mucus NEGATIVE, Urine Nitrite NEGATIVE, Urine Protein 1+H, Urine RBC 10-25H, Urine RBC (Auto) 2+H, Urine Specific [place] 1.015L, Urine Squamous Epithelial Cells 2-5, Urine Urobilinogen 1, Urine WBC 2-5, Urine pH 6.5 01/03/17 20:47: Glucometer 135H 01/04/17 04:15: Anion Gap 15H, BUN/Creatinine Ratio 11, Blood Urea Nitrogen 17, Calcium Level 9.1, Carbon Dioxide Level 24, Chloride Level 101, Creatinine 1.59H, Estimat Glomerular Filtration Rate 45, Glucose Level 77, Magnesium Level 1.9, Potassium Level 3.8, Sodium Level 140 01/04/17 11:56: Glucometer 94 Microbiology 12/28/16 Blood Culture - Preliminary, Resulted No growth Laboratory Tests 01/03/17 04:00 01/03/17 04:20 01/04/17 04:15 A/P: Assessment: Acute exac of COPD due to bilateral pneumonia (?atypical pneumonia) - medical services managing CABG 3 vessel, GUZMAN to LAD, reverse saphenous vein graft to RPDA, reverse saphenous vein graft to OM1. Bi-atrial Farley MAZE by Dr. Raman on 08-26-16 CAD and cardiomyopathy. MPI of 01/22/16 showed ischemic cm; apical infarction with only minimal fred infarct ischemia; LVEF 31%. Subsequent cardiac cath of April 29, 2016 showed moderately severe MVD, including the left main; LVEF 50%; elevated LVEDP; no significant MR. Chronic systolic and diastolic CHF - clinically improved Acute renal insuff, likely related to diuretic therapy, improved after reduction of diuretics Intermittent noncompliance with meds Paroxysmal A-fib/flutter - rate controlled Pradaxa for stroke prophylaxis HTN Echocardiogram from July 2015 at [facility] by Dr. Farley showed CM with an LVEF of 30% and diastolic dysfunction. Echocardiogram of 10-23-16 technically difficult study. LVEF 55-60%. Mild MR and TR. No evidence of significant valvular stenosis. PASP estimated to be approx 50mmHg. Mild diastolic dysfunction of LV DM Myasthenia gravis - chronic steroid therapy H/o chronic left eye droop/closure following cataract surgery in July 2015 COPD Tobaccoism - 11/17 PPD - cessation advised H/O Methamphetamine abuse - continued cessation advised Atherosclerotic plaque within the bilateral internal carotid arteries contributing to less than 50% stenosis per carotid u/s of 12-25-15 Suspected KILLIAN Chronic mild transaminase elevation, present even before statin therapy Abdominal discomfort of undetermined etiology - management per medical services Gout - treatment per medical services Plan: * Treatment of pneumonia and COPD is with the Medical Service * CHF clinically improved * Continue to f/u on renal function * Management of gout is per medical services * Management of left leg wounds is per Medical Services - may need to consider Wound Care Service * Cardiac status clinically stable for discharge with outpt f/u appt JULIUS ALCARAZ MD FACP FAC CCDS Jan 04, 2017 13:32
--- NOTE | 2017-01-04 14:25 | Progress Note (SOAP) ---
Subjective Subjective/Events-last exam Afebrile. He states he is feeling a little better today than he has been, his stomach is not hurting as much although he has still not had a bowel movement. He is still not taking a lot of his medications. Date seen by provider: Jan 04, 2017 Time seen by provider: 09:35 Objective Exam Last Set of Vital Signs Vital Signs Date Time Temp Pulse Resp B/P Pulse Ox O2 Delivery O2 Flow Rate FiO2 01/04/17 08:47 96.9 79 20 101/70 95 Nasal Cannula 2.00 Capillary Refill : Less Than 3 SecondsLess Than 3 Seconds I&O Intake and Output 01/04/17 00:00 Intake Total 892 ml Output Total 525 ml Balance 367 ml Intake Oral 642 ml IV Total 250 ml Output Urine Total 525 ml # Voids 1 General: Alert, No Acute Distress Lungs: Clear to Auscultation, Normal Air Movement Heart: Other (irregularly irregular) Abdomen: Normal Bowel Sounds, Soft Neuro: Normal Speech Psych/Mental Status: Mental Status NL Results/Procedures Lab Laboratory Tests 01/03/17 15:53: Glucometer 97 01/03/17 18:35: Urine Bacteria NEGATIVE, Urine Bilirubin 1+H, Urine Casts PRESENT, Urine Clarity CLEAR, Urine Color AMBERH, Urine Crystals NONE, Urine Culture Indicated NO, Urine Glucose (UA) NEGATIVE, Urine Hyaline Casts 10-25H, Urine Ketones 2+H, Urine Leukocyte Esterase 1+H, Urine Mucus NEGATIVE, Urine Nitrite NEGATIVE, Urine Protein 1+H, Urine RBC 10-25H, Urine RBC (Auto) 2+H, Urine Specific [place] 1.015L, Urine Squamous Epithelial Cells 2-5, Urine Urobilinogen 1, Urine WBC 2-5, Urine pH 6.5 01/03/17 20:47: Glucometer 135H 01/04/17 04:15: Anion Gap 15H, BUN/Creatinine Ratio 11, Blood Urea Nitrogen 17, Calcium Level 9.1, Carbon Dioxide Level 24, Chloride Level 101, Creatinine 1.59H, Estimat Glomerular Filtration Rate 45, Glucose Level 77, Magnesium Level 1.9, Potassium Level 3.8, Sodium Level 140 01/04/17 11:56: Glucometer 94 Microbiology 12/28/16 Blood Culture - Preliminary, Resulted No growth Radiology NAME: RIGO [facility]US [facility] REC#: [id number] PT STATUS: ADM IN : 1960 PHYSICIAN: MICHOACANO FIORE APRN ADMIT DATE: 12/28/16/ICU Signed Date of Exam: 12/28/16 CHEST PA/LAT (2 VIEW) INDICATION: Worsening abdominal pain since yesterday. CHF. EXAMINATION: Two-view chest 12/28/2016 Comparison made with prior examination from 12/25/2016. FINDINGS: Cardio megaly noted. Pulmonary vasculature minimally prominent. Findings of edema seen throughout both lungs and stable from previous imaging. Due to patient body habitus evaluation for infiltrate is limited. However at least bibasal atelectasis is suspected. Small infiltrate difficult to exclude, correlate with symptoms. No effusions are seen. Sternotomy wires and mediastinal clips noted as well as epicardial leads present. IMPRESSION: Bibasal atelectasis versus infiltrate correlate with symptoms. Suspected mild pulmonary edema. Dictated by: Dictated on workstation # [id number] Dict: 12/28/16 1128 Trans: 12/28/16 1729 [facility] [id number] Interpreted by: RAMEZ QUINONEZ MD Electronically signed by:RAMEZ QUINONEZ MD 12/28/16 1732 Assessment/Plan Assessment/Plan Admission Dx 1. Bilateral by basilar infiltratesmost likely pneumonia. Also in the differential is atelectasis 2. Atrial tachycardia with a history chronic atrial fibrillation 3. Nonspecific abdominal pain 4 Congestive heart failure - history of 5. COPD-history of 6. Hypertriglyceridemia 7. Diabetes Mellitus 8. Depression 9. Gout flare Plan 1. Bilateral by basilar infiltratesmost likely pneumonia. Also in the differential is atelectasis -Patient to be admitted for IV cefepime -blood culture is pending 12/29- due to recent hospitalization will treat for HAP, vanc, zosyn and cefepime. Clinically improving, continue to monitor. 12/30 - if blood cx remains negative at 48 hours will d/c vancomycin 12/31 - d/c vancomycin and cefepime as there is no growth on blood cultures and he continues to be stable/improved clinically 2. Atrial tachycardia with a history chronic atrial fibrillation -He was initiated on Cardizem drip in the ED. -cardiology consultation 12/31 transitioned to PO 3. Nonspecific abdominal pain -Continue to monitor -CT abdomen with no significant pathology 12/30 Add pantoprazole and try miralax due to constipation 12/31 Refused miralax yesterday but today again has constipation, will offer again 01/01 No BM, will increase miralax to TID 01/02 still no BM, try dulcolax suppository and add senna-s BID to miralax 01/03 did not want suppository, will check abd x-ray, consider mag citrate 01/04 KUB yesterday with non-specific bowel gas pattern, feeling better today 4 Congestive heart failure - history of -continue diuretic and treatment per Cardiology 12/31 per Cardiology switch to oral furosemide tomorrow 01/03 hold lasix today due to his renal insufficiency 01/04 resume lasix, monitor kidney function 5. COPD-history of -RT, MAT protocol -Continue home inhalers (although he is refusing them inpatient) 6. Hypertriglyceridemia -continue statin 7. Diabetes Mellitus -he will be maintained on home insulin regimen 01/03 stop metformin due to renal function 8. Depression- given his chronic pain and depression, discussed trial of cymbalta and will start inpatient although we did discuss it may take some time to note the effect 9. Gout flare- colchicine x 1, improved 10. Acute renal insufficiency- suspect due to increased furosemide dosage and poor intake 01/02 Improved oral intake and furosemide has been changed back to oral, monitor 01/03 Worsening, check UA and hold furosemide and metformin and give 250 cc bolus 01/04 Improved, resume lasix and repeat creatinine in the am DVT prophlaxis--SCDs, on dabigatrin as home med- continued Disp- discussed his wishes with patient this am (12/29) and he stated he does not want to be intubated or have chest compressions or cardioversion if he should become more seriously ill. Will change code status to DNR per his request. 01/03 Discussed his not wanting to take medications. He has considered hospice in the past and is still somewhat interested in that. He admits he is near the point of not being able to take care of himself at home and doesn't have help. When asked if he would consider correction, he says he would like to discuss with his children but has a hard time getting them to come. Diagnosis/Problems: Clinical Quality Measures DVT/VTE Risk/Contraindication: Risk Factor Score Per Nursin RFS Level Per Nursing on Admit: 3=High ALYSSA BROWN MD Jan 04, 2017 2:25 pm
[2017-01-04] MEDS ORDERED: LEVOFLOXACIN 750 MG TAB (LEVAQUIN) ONE (16:38)
[2017-01-04] MEDS: LEVOFLOXACIN 750 MG TAB (LEVAQUIN) PO SCH (16:43)
[2017-01-04 16:47] VITALS: BP 103/69
[2017-01-04] MEDS: ATORVASTATIN 20 MG (LIPITOR) TABLET PO SCH (22:03)
[2017-01-04] MEDS: MONTELUKAST 10 MG (SINGULAIR) TAB PO SCH (22:03)
[2017-01-05 00:38] VITALS: BP 111/77
[2017-01-05] MEDS: NYSTATIN ORAL SUSP 5 ML UDC PO SCH ×4 (05:14→18:00)
[2017-01-05] MEDS: LACTOBACILLUS Acidoph/Bulgar (LACTINEX/FLORANEX) TAB PO SCH ×3 (05:14→15:12)
[2017-01-05] MEDS: inSUlin ASPART (NovoLOG) 1 UNIT/0.01 ML (CHARGE PER UNIT) SC SCH ×3 (06:00→15:12)
[2017-01-05] MEDS: PANTOPRAZOLE 40 MG (PROTONIX) TAB PO SCH (06:03)
[2017-01-05 06:14] LABS: BASOPHILS % (AUTO) 0 % (0-10); EOSINOPHILS # (AUTO) 0.1 10^3/uL (0.0-0.3); EOSINOPHILS % (AUTO) 1 % (0-10); LYMPHOCYTES # (AUTO) 1.4 X 10^3 (1.0-4.0); LYMPHOCYTES % (AUTO) 15 % (12-44); MEAN CORPUSCULAR HEMOGLOBIN 27 PG (25-34); MEAN CORPUSCULAR HGB CONC 31 G/DL (32-36); MEAN CORPUSCULAR VOLUME 88 FL (80-99); MEAN PLATELET VOLUME 8.6 FL (7.4-10.4); MONOCYTES # (AUTO) 0.9 X 10^3 (0.0-1.0); MONOCYTES % (AUTO) 10 % (0-12); NEUTROPHILS # (AUTO) 7.1 X 10^3 (1.8-7.8); NEUTROPHILS % (AUTO) 75 % (42-75); PLATELET COUNT 323 10^3/uL (130-400); RED BLOOD COUNT 3.91 10^6/uL (4.35-5.85); RED CELL DISTRIBUTION WIDTH 17.2 % (10.0-14.5); WHITE BLOOD COUNT 9.5 10^3/uL (4.3-11.0)
[2017-01-05 06:43] LABS: CALCIUM 8.8 MG/DL (8.5-10.1); CREATININE SERUM 1.51 MG/DL (0.60-1.30); MAGNESIUM 1.7 MG/DL (1.8-2.4); POTASSIUM 3.7 MMOL/L (3.6-5.0)
[2017-01-05 07:30] VITALS: BP 127/74
[2017-01-05] MEDS: RT-ALBUTEROL/IPRATROPIUM 3 ML (DUONEB) VIAL INH SCH ×3 (07:42→20:17)
[2017-01-05] MEDS: UMECLIDINIUM BROMIDE (INCRUSE ELLIPTA) 7'S IH SCH (07:42)
[2017-01-05] MEDS: RT-ADVAIR HFA 115/21 MCG PER PUFF IH SCH ×2 (07:42→20:00)
--- NOTE | 2017-01-05 08:12 | Pulmonary Progress Note ---
Subjective Subjective/Events-last exam NO respiratory complications noted. Exam Exam Vital Signs Date Time Temp Pulse Resp B/P Pulse Ox O2 Delivery O2 Flow Rate FiO2 01/05/17 07:39 91 2.00 01/05/17 00:38 98.6 75 18 111/77 95 Nasal Cannula 2.00 01/04/17 21:00 High Flow NC 4.00 01/04/17 17:42 98.5 01/04/17 16:47 98.5 88 20 103/69 94 Nasal Cannula 2.00 01/04/17 08:47 96.9 79 20 101/70 95 Nasal Cannula 2.00 I & O 01/05/17 07:00 Intake Total 895 ml Output Total 1025 ml Balance -130 ml General Appearance: No Apparent Distress Obese HEENT: Other (Red ~2mm spot inferior to sclerae bilat; pt reports these have occasionally appeared ever since his cataract surgery 2 years ago) Neck: No JVD Respiratory: Lungs Clear (good air movement in all lung johnson) Cardiovascular: Irregularly Irregular Capillary Refill: Less Than 3 Seconds Peripheral Pulses: 1+ Radial Pulses (R), 1+ Radial Pulses (L) Gastrointestinal: hernia other (some minimal generalized tenderness to palpation and bloating) Extremity: Pedal Edema (stable from exam yesterday (less than beginning of the week)) Other (bilateral knee tenderness to palpation and pain with flexion/ extension, ~5cm diameter area of erythema overlying R patella) Neurologic/Psychiatric: Alert Other (dysthymic) Skin: Pallor Results Lab Laboratory Tests 01/04/17 04:15 01/05/17 05:30 Assessment/Plan Assessment/Plan Bilateral pneumonia vs atelectasis - levaquin now d/c'd atrial fibrillation - pt converted to sinus Congestive heart failure Severe COPD -Add SVNs and advair - D/C MAT protocol - with MAT protocol pt is not on any inhalers. Diabetes Mellitus Pt is ok from pulmonary standpoint for discharge. I am going to sign off now. Please call with any questions or concerns. Clinical Quality Measures DVT/VTE Risk/Contraindication: Risk Factor Score Per Nursin RFS Level Per Nursing on Admit: 3=High AMILCAR GLASGOW DO Jan 05, 2017 08:12
[2017-01-05] MEDS: SENNA W/DOCUSATE (SENOKOT S) TABLET PO SCH ×2 (08:24→20:39)
[2017-01-05] MEDS: DILTIAZEM 300 MG (CARDIZEM CD) CAP PO SCH (08:24)
[2017-01-05] MEDS: POLYETHYLENE GLYCOL 17 GM (MIRALAX) PACK PO SCH ×3 (08:24→20:39)
[2017-01-05] MEDS: ASPIRIN E.C. 81 MG (ECOTRIN) TAB PO SCH (08:24)
[2017-01-05] MEDS: DULoxetine 30 MG (CYMBALTA) CAP PO SCH ×2 (08:24→20:40)
[2017-01-05] MEDS: DABIGATRAN 150 MG (PRADAXA) CAPSULE PO SCH ×2 (08:24→20:45)
[2017-01-05] MEDS: inSUlin DETERMIR 1 UNIT/0.01 ML (LEVEMIR) CHARGE PER UNIT SQ SCH ×2 (08:24→21:00)
[2017-01-05] MEDS: CARVEDILOL 12.5 MG (COREG) TABLET PO SCH ×2 (08:24→20:39)
[2017-01-05] MEDS: FUROSEMIDE 40 MG (LASIX) TAB PO SCH (08:24)
[2017-01-05] MEDS: KCL 20 MEQ TAB (K-DUR) PO SCH ×2 (08:28→20:48)
[2017-01-05] MEDS: NICOTINE PATCH REMOVAL TP SCH (08:28)
[2017-01-05] MEDS: NICOTINE 14 MG (NICODERM) PATCH TD SCH (08:28)
--- NOTE | 2017-01-05 09:39 | Progress Note-Cardiology ---
Cardiology SOAP Progress Note Subjective: No chest discomfort other than chronic dull discomfort along sternotomy that continues to wax and wane but doesn't complete resolve and has been present for a long time No palp Shortness of breath better Objective: I&O/Vital Signs Vital Sign - Last 12Hours 01/05/17 01/05/17 01/05/17 00:38 07:30 07:39 Temp 98.6 98.6 Pulse 75 81 Resp 18 16 B/P 111/77 127/74 Pulse Ox 95 92 91 O2 Delivery Nasal Cannula Nasal Cannula O2 Flow Rate 2.00 2.00 2.00 Intake and Output 01/05/17 00:00 Intake Total 820 ml Output Total 600 ml Balance 220 ml Weight (Pounds): 227 Weight (Ounces): 7.0 Weight (Calculated Kilograms): [phone] Constitutional: AAO x 3 well-developed well-nourished Respiratory: No accessory muscle use, crackles (bi-basilar) wheezing ( expiratory wheezes) Cardiovascular: irregularly irregular S1 and S2 systolic murmur (faint TINY at cardiac base) Gastrointestional: No tender, soft roundNo guarding, No rebound, audible bowel sounds Extremities: No clubbing, No cyanosis, laceration (approx 1.cm superficial ulceration the mid-[place] on the L (clean base); mild surrounding erythema) significant edema (mild leg edema, much improved compared to time of admission) Neurologic/Psychiatric: oriented x 3 grossly intact power is 5/5 both on sides Skin: No rash, ulcerations (see under extremity exam) Results/Procedures: Labs Laboratory Tests 01/04/17 11:56: Glucometer 94 01/04/17 15:47: Glucometer 64L 01/04/17 20:33: Glucometer 97 01/05/17 05:30: Anion Gap 14, BUN/Creatinine Ratio 10, Basophils # (Auto) 0.0, Basophils (%) ( Auto) 0, Blood Urea Nitrogen 15, Calcium Level 8.8, Carbon Dioxide Level 28, Chloride Level 100, Creatinine 1.51H, Eosinophils # (Auto) 0.1, Eosinophils (%) (Auto) 1, Estimat Glomerular Filtration Rate 48, Glucose Level 66L, Hematocrit 34L, Hemoglobin 10.7L, Lymphocytes # (Auto) 1.4, Lymphocytes (%) (Auto) 15, Magnesium Level 1.7L, Mean Corpuscular Hemoglobin 27, Mean Corpuscular Hemoglobin Concent 31L, Mean Corpuscular Volume 88, Mean Platelet Volume 8.6, Monocytes # (Auto) 0.9, Monocytes (%) (Auto) 10, Neutrophils # (Auto) 7.1, Neutrophils (%) (Auto) 75, Platelet Count 323, Potassium Level 3.7, Red Blood Count 3.91L, Red Cell Distribution Width 17.2H, Sodium Level 142, White Blood Count 9.5 01/05/17 05:43: Glucometer 79 Microbiology 12/28/16 Blood Culture - Preliminary, Resulted No growth Laboratory Tests 01/04/17 04:15 01/05/17 05:30 A/P: Assessment: Acute exac of COPD due to bilateral pneumonia (?atypical pneumonia) - medical services managing CABG 3 vessel, GUZMAN to LAD, reverse saphenous vein graft to RPDA, reverse saphenous vein graft to OM1. Bi-atrial Farley MAZE by Dr. Raman on 08-26-16 CAD and cardiomyopathy. MPI of 01/22/16 showed ischemic cm; apical infarction with only minimal fred infarct ischemia; LVEF 31%. Subsequent cardiac cath of April 29, 2016 showed moderately severe MVD, including the left main; LVEF 50%; elevated LVEDP; no significant MR. Chronic systolic and diastolic CHF - clinically improved Acute renal insuff, likely related to diuretic therapy, improved after reduction of diuretics Intermittent noncompliance with meds Paroxysmal A-fib/flutter - rate controlled Pradaxa for stroke prophylaxis HTN Echocardiogram from July 2015 at [facility] by Dr. Farley showed CM with an LVEF of 30% and diastolic dysfunction. Echocardiogram of 10-23-16 technically difficult study. LVEF 55-60%. Mild MR and TR. No evidence of significant valvular stenosis. PASP estimated to be approx 50mmHg. Mild diastolic dysfunction of LV DM Myasthenia gravis - chronic steroid therapy H/o chronic left eye droop/closure following cataract surgery in July 2015 COPD Tobaccoism - 11/17 PPD - cessation advised H/O Methamphetamine abuse - continued cessation advised Atherosclerotic plaque within the bilateral internal carotid arteries contributing to less than 50% stenosis per carotid u/s of 12-25-15 Suspected KILLIAN Chronic mild transaminase elevation, present even before statin therapy Abdominal discomfort of undetermined etiology - management per medical services Gout - treatment per medical services Plan: * Treatment of pneumonia and COPD is with the Medical Service * CHF clinically improved * Renal function much improved * Replenish Mg * Management of gout is per medical services * Management of left leg wounds is per Medical Services - may need to consider Wound Care Service * Cardiac status clinically stable for discharge with outpt f/u appt JULIUS ALCARAZ MD FACP FAC CCDS Jan 05, 2017 09:39
--- NOTE | 2017-01-05 09:41 | Progress Note-Hospitalist ---
Progress Note Progress Notes/Assess & Plan Date Seen 01/05/17 Diagonsis/Assessment & Plan Patient doing well per his standard but he will knee detention because he can 't take care of himself and family provides minimal support DO NOT RESUSCITATE and patient is likely hospice candidate considering he is noncompliant and refuses all medical treatments and medications Maintain on oxygen that was set up last admission No bowel movement yet a refuses enemas and suppositories No fever, vital signs stable, pleasant, flat affect Regular rate and rhythm, coarse breath sounds through all johnson Trace edema lower [place] is Assessment/Plan: 1. Bilateral by basilar infiltrates pneumonia. 2. Atrial tachycardia with a history chronic atrial fibrillation 3. Nonspecific abdominal pain due to constipation and refuses suppository and enemas 4 Congestive heart failure - history of 5. COPD-with exacerbation requiring oxygen 6. Hypertriglyceridemia 7. Diabetes Mellitus 8. Depression- on Cymbalta 9. Gout flare 10. Acute renal insufficiency- suspect due to increased furosemide dosage and poor intake 11. DO NOT RESUSCITATE and noncompliant with all medical treatments once detention placement and likely patient will declining rapidly he is actually a hospice patient continue treatment plan that refuses most medications Placement in detention and likely will require hospice of life care Very difficult social situation HAROLDO HER DO Jan 05, 2017 09:41
[2017-01-05] MEDS: MAGNESIUM 1 GM/100 ML IVPB 100 ML IV SCH ×2 (10:08→11:07)
[2017-01-05 16:23] VITALS: BP 125/67
[2017-01-05] MEDS: ATORVASTATIN 20 MG (LIPITOR) TABLET PO SCH (20:39)
[2017-01-05] MEDS: oxyCODONE/APAP 10/325MG (PERCOCET 10) TABLET PO PRN (20:40)
[2017-01-05] MEDS: MONTELUKAST 10 MG (SINGULAIR) TAB PO SCH (20:48)
[2017-01-06] VITALS: BP 139/71
[2017-01-06] MEDS: LACTOBACILLUS Acidoph/Bulgar (LACTINEX/FLORANEX) TAB PO SCH (05:47)
[2017-01-06] MEDS: NYSTATIN ORAL SUSP 5 ML UDC PO SCH ×2 (05:47)
[2017-01-06] MEDS: inSUlin ASPART (NovoLOG) 1 UNIT/0.01 ML (CHARGE PER UNIT) SC SCH (05:48)
[2017-01-06] MEDS: PANTOPRAZOLE 40 MG (PROTONIX) TAB PO SCH (05:48)
[2017-01-06] MEDS: RT-ALBUTEROL/IPRATROPIUM 3 ML (DUONEB) VIAL INH SCH (06:59)
[2017-01-06] MEDS: UMECLIDINIUM BROMIDE (INCRUSE ELLIPTA) 7'S IH SCH (06:59)
[2017-01-06] MEDS: RT-ADVAIR HFA 115/21 MCG PER PUFF IH SCH (06:59)
[2017-01-06] MEDS: NICOTINE PATCH REMOVAL TP SCH (08:59)
[2017-01-06] MEDS: KCL 20 MEQ TAB (K-DUR) PO SCH (09:00)
[2017-01-06] MEDS: NICOTINE 14 MG (NICODERM) PATCH TD SCH (09:00)
[2017-01-06] MEDS: DULoxetine 30 MG (CYMBALTA) CAP PO SCH (09:00)
[2017-01-06] MEDS: inSUlin DETERMIR 1 UNIT/0.01 ML (LEVEMIR) CHARGE PER UNIT SQ SCH (09:00)
[2017-01-06] MEDS: SENNA W/DOCUSATE (SENOKOT S) TABLET PO SCH (09:00)
[2017-01-06] MEDS: POLYETHYLENE GLYCOL 17 GM (MIRALAX) PACK PO SCH (09:00)
[2017-01-06] MEDS ORDERED: IPRA3AMP INH (09:41)
[2017-01-06] MEDS ORDERED: PANT40TA3 PO (09:41)
[2017-01-06] MEDS ORDERED: NCT14P TD (09:41)
[2017-01-06] MEDS ORDERED: POLY17PO23 PO (09:41)
[2017-01-06] MEDS ORDERED: OXYC-465 PO (09:41)
[2017-01-06] MEDS ORDERED: FLUT12AE4 IH (09:41)
[2017-01-06] MEDS ORDERED: DILT300C51 PO (09:41)
[2017-01-06] MEDS ORDERED: DULO30CA3 PO (09:41)
[2017-01-06] MEDS: DILTIAZEM 300 MG (CARDIZEM CD) CAP PO SCH (09:42)
[2017-01-06] MEDS: FUROSEMIDE 40 MG (LASIX) TAB PO SCH (09:42)
[2017-01-06] MEDS: DABIGATRAN 150 MG (PRADAXA) CAPSULE PO SCH (09:42)
[2017-01-06] MEDS: ASPIRIN E.C. 81 MG (ECOTRIN) TAB PO SCH (09:43)
[2017-01-06] MEDS: CARVEDILOL 12.5 MG (COREG) TABLET PO SCH (09:43)
--- NOTE | 2017-01-06 09:43 | Discharge Instructions ---
Discharge Instructions Discharge Medications New, Converted or Re-Newed RX: Other New Medications: Diltiazem HCl (Diltiazem 24Hr Cd) 300 Mg Cap.er.24h 300 MG PO DAILY Days 30 CAP Duloxetine HCl (Cymbalta) 30 Mg Capsule.dr 30 MG PO BID Days 30 CAP Fluticasone/Salmeterol (Advair Hfa 115-21 Mcg Inhaler) 12 Gm Hfa.aer.ad 2 PUFF IH BID@08,20 Days 30 GM Ipratropium/Albuterol Sulfate (Iprat-Albut 0.5-3(2.5) mg/3 ml) 3 Ml Ampul.neb 3 ML INH RTTID Days 30 INHALER Nicotine (Nicotine Patch) 1 Each Patch.td24 14 MG TD DAILY@0900 Days 30 PATCH Pantoprazole Sodium (Pantoprazole Sodium) 40 Mg Tablet.dr 40 MG PO DAILY@0700 #30 TAB Polyethylene Glycol 3350 (Polyethylene Glycol 3350) 17 Gm Powd.pack 17 GM PO TID Days 30 EACH Continued Medications: Aspirin (Aspirin EC) 81 Mg Tablet.dr 81 MG PO DAILY TAB Atorvastatin Calcium (Atorvastatin Calcium) 20 Mg Tablet 20 MG PO HS Bumetanide (Bumetanide) 1 Mg Tablet 1 MG PO BID Carvedilol (Carvedilol) 12.5 Mg Tablet 12.5 MG PO BID Dabigatran Etexilate Mesylate (Pradaxa) 150 Mg Capsule 150 MG PO BID CAP Insulin Aspart (Novolog Flexpen) 300 Units/3 Ml Solution 6 UNITS SC AC EA Insulin Detemir (Levemir Flextouch) 100 Unit/1 Ml Insuln.pen 18 UNITS SC BID EA Metformin HCl (Metformin HCl) 500 Mg Tablet 1000 MG PO BID TAKES 2 (500 MG) TABLETS Montelukast Sodium (Montelukast Sodium) 10 Mg Tablet 10 MG PO HS TAB Nystatin (Nystatin) 100,000 Unit/1 Ml Oral.susp 5 ML PO QIDACHS #30 ML Oxycodone HCl/Acetaminophen (Oxycodone-Acetaminophen 10-325) 1 Each Tablet 1 TAB PO Q8H PRN PAIN #30 (This prescription has been renewed) Potassium Chloride (Potassium Chloride) 20 Meq Tab.er.prt 20 MEQ PO DAILY LAST FILLED 10/17/16 #30 TAB Tiotropium [place] (Spiriva Respimat) 4 Gm Mist.inhal 2 PUFF INH DAILY EA Discontinued Medications: Albuterol Sulfate (Albuterol Sulfate) 2.5 Mg/3 Ml Vial.neb 2.5 MG NEB Q4H PRN SHORTNESS OF BREATH EA Prednisone (Prednisone) 10 Mg Tab.ds.pk 10 MG PO DAILY Take 6 tabs(60mg)daily,decrease by 1 tab(10mg)every other day. # 42 PKG Patient Instructions Goal/Follow Up Appt: [facility] as scheduled Patient needs Hospice enrollment Patient Instructions: maintain O2 as ordered Activity & Diet Discharge Diet: ADA Diet, Cardiac Diet Activity as Tolerated: Yes HAROLDO HER DO Jan 06, 2017 09:43
--- NOTE | 2017-01-06 09:49 | Discharge Summary-Hospitalist ---
Diagnosis/Chief Complaint Date of Admission Dec 28, 2016 at 13:25 Date of Discharge Discharge Date: Jan 06, 2017 Discharge Diagnosis Patient doing well per his standard but he will knee fdc because he can 't take care of himself and family provides minimal support DO NOT RESUSCITATE and patient is likely hospice candidate considering he is noncompliant and refuses all medical treatments and medications Maintain on oxygen that was set up last admission No bowel movement yet a refuses enemas and suppositories No fever, vital signs stable, pleasant, flat affect Regular rate and rhythm, coarse breath sounds through all johnson Trace edema lower [place] is Assessment/Plan: 1. Bilateral by basilar infiltrates pneumonia. 2. Atrial tachycardia with a history chronic atrial fibrillation 3. Nonspecific abdominal pain due to constipation and refuses suppository and enemas 4 Congestive heart failure - history of 5. COPD-with exacerbation requiring oxygen 6. Hypertriglyceridemia 7. Diabetes Mellitus 8. Depression- on Cymbalta 9. Gout flare 10. Acute renal insufficiency- suspect due to increased furosemide dosage and poor intake 11. DO NOT RESUSCITATE and noncompliant with all medical treatments once fdc placement and likely patient will declining rapidly he is actually a hospice patient continue treatment plan that refuses most medications Placement in fdc and likely will require hospice of life care Very difficult social situation Reason Hospital Visit/Course Assessment/Plan: 1. Bilateral by basilar infiltrates pneumonia. 2. Atrial tachycardia with a history chronic atrial fibrillation 3. Nonspecific abdominal pain due to constipation and refuses suppository and enemas 4 Congestive heart failure - history of 5. COPD-with exacerbation requiring oxygen 6. Hypertriglyceridemia 7. Diabetes Mellitus 8. Depression- on Cymbalta 9. Gout flare 10. Acute renal insufficiency- suspect due to increased furosemide dosage and poor intake 11. DO NOT RESUSCITATE and noncompliant with all medical treatments once fdc placement and likely patient will declining rapidly he is actually a hospice patient continue treatment plan that refuses most medications Placement in fdc and likely will require hospice of life care Very difficult social situation Hospital course: Patient had a lengthy hospital course due to his noncompliance and refusal of multiple medications and treatment plan he was deemed end of life although hospice has not been formally enrolled but he was not able to get up and around and had no motivation to do so she was sent to the fdc on home oxygen and will be managed by [facility] with Dr. Rapp but overall prognosis is very grim and he is in reality and end-of-life patient. Discharge Summary Discharge Physical Examination Allergies: Coded Allergies: No Known Drug Allergies (Unverified , 09/23/13) Vitals & I&Os Vital Signs Date Time Temp Pulse Resp B/P Pulse Ox O2 Delivery O2 Flow Rate FiO2 01/06/17 08:00 Nasal Cannula 2.00 01/06/17 00:00 96.3 73 18 93 Hospital Course Labs (last 24 hrs) Laboratory Tests 01/05/17 11:42: Glucometer 100 01/05/17 16:25: Glucometer 73 01/05/17 21:08: Glucometer 77 01/06/17 05:43: Glucometer 88 Microbiology 12/28/16 Blood Culture - Preliminary, Resulted No growth Pending Labs Laboratory Tests 01/06/17 05:43: Glucometer 88 Discharge Home Medications: Active Scripts Active Pantoprazole Sodium 40 Mg Tablet.dr 40 Mg PO DAILY@0700 Nicotine Patch (Nicotine) 1 Each Patch.td24 14 Mg TD DAILY@0900 30 Days Polyethylene Glycol 3350 17 Gm Powd.pack 17 Gm PO TID 30 Days Advair Hfa 115-21 Mcg Inhaler (Fluticasone/Salmeterol) 12 Gm Hfa.aer.ad 2 Puff IH BID@, 30 Days Cymbalta (Duloxetine HCl) 30 Mg Capsule.dr 30 Mg PO BID 30 Days Diltiazem 24Hr Cd (Diltiazem HCl) 300 Mg Cap.er.24h 300 Mg PO DAILY 30 Days Iprat-Albut 0.5-3(2.5) mg/3 ml (Ipratropium/Albuterol Sulfate) 3 Ml Ampul.neb 3 Ml INH RTTID 30 Days Oxycodone-Acetaminophen 10-325 (Oxycodone HCl/Acetaminophen) 1 Each Tablet 1 Tab PO Q8H PRN Nystatin 100,000 Unit/1 Ml Oral.susp 5 Ml PO QIDACHS Reported Atorvastatin Calcium 20 Mg Tablet 20 Mg PO HS Carvedilol 12.5 Mg Tablet 12.5 Mg PO BID Metformin HCl 500 Mg Tablet 1,000 Mg PO BID TAKES 2 (500 MG) TABLETS Bumetanide 1 Mg Tablet 1 Mg PO BID Spiriva Respimat (Tiotropium [place]) 4 Gm Mist.inhal 2 Puff INH DAILY Novolog Flexpen (Insulin Aspart) 300 Units/3 Ml Solution 6 Units SC AC Levemir Flextouch (Insulin Detemir) 100 Unit/1 Ml Insuln.pen 18 Units SC BID Aspirin EC (Aspirin) 81 Mg Tablet.dr 81 Mg PO DAILY Potassium Chloride 20 Meq Tab.er.prt 20 Meq PO DAILY LAST FILLED 10/17/16 #30 Montelukast Sodium 10 Mg Tablet 10 Mg PO HS Pradaxa (Dabigatran Etexilate Mesylate) 150 Mg Capsule 150 Mg PO BID Instructions to patient/family Please see electonic discharge instructions given to patient. Clinical Quality Measures DVT/VTE Risk/Contraindication: Risk Factor Score Per Nursin RFS Level Per Nursing on Admit: 3=High HAROLDO HER DO Jan 06, 2017 09:49
[2017-01-06 11:23] VITALS: BP 139/71
== END 2017-01-06 11:23 | DRG 190 ==
LOC: EDUNIT# 10:08 → ER 10:09 → ICU 13:25 → 4TH 12-30 15:25
PROVIDERS: ADMIT Family Medicine; ATTEND Family Medicine
DX: J44.0 Chronic obstructive pulmonary disease with (acute) lower respiratory infection (principal); J44.1 Chronic obstructive pulmonary disease with (acute) exacerbation; J18.9 Pneumonia, unspecified organism; I50.42 Chronic combined systolic (congestive) and diastolic (congestive) heart failure; B37.0 Candidal stomatitis; J98.11 Atelectasis; M10.9 Gout, unspecified; N28.9 Disorder of kidney and ureter, unspecified; G70.00 Myasthenia gravis without (acute) exacerbation; Z66 Do not resuscitate; I48.0 Paroxysmal atrial fibrillation; E11.9 Type 2 diabetes mellitus without complications; I25.5 Ischemic cardiomyopathy; F17.210 Nicotine dependence, cigarettes, uncomplicated; E78.1 Pure hyperglyceridemia; I10 Essential (primary) hypertension; K21.9 Gastro-esophageal reflux disease without esophagitis; I25.10 Atherosclerotic heart disease of native coronary artery without angina pectoris; F32.9 Major depressive disorder, single episode, unspecified; F15.10 Other stimulant abuse, uncomplicated; E83.42 Hypomagnesemia; Z95.1 Presence of aortocoronary bypass graft; Z79.4 Long term (current) use of insulin; Z79.52 Long term (current) use of systemic steroids; I65.23 Occlusion and stenosis of bilateral carotid arteries; G47.33 Obstructive sleep apnea (adult) (pediatric); Z91.19 Patient's noncompliance with other medical treatment and regimen
CPT/HCPCS: 36415; 71010; 71020; 74000; 74176; 80048; 80053; 80202; 81000; 82962; 83605; 83690; 83735; 83880; 84100; 84484; 85025; 85027; 87040; 93005; 94640; 94664; 94760; 96365; 96367; 96372; 96375